=== PATIENT | female | born 1950 | race Caucasian/White ===

== ENCOUNTER 2017-03-14 13:05 | Emergency (ER) | payer MEDICARE ==
[2017-03-14 15:30] VITALS: BP 114/54
--- NOTE | 2017-03-14 15:56 | UC ---
Abdominal Pain Female HPI - HPI Summary HPI Summary: Caitlyn Carrero is a 66 yo female presenting to [facility] with lower abd/pelvic pressure for the past 4 weeks without any current pain. Pt states she has had multiple BM 's per day in the past 4 weeks that begin as hard stools but progress to "soupier" form as the day continues. Pt also states some intermittent lower back pain. She states she saw her PCP for these Sx 3 weeks ago and was Dx with UTI with a Rx for Cipro. She states that the Cipro helped resolve her Sx while she was taking it, but as soon as her Rx finished her Sx returned. She states that her PCP took swabs of vaginal discharge. She states that she has had UTI in the past and feels that this is not like a UTI. She states she has some urinary incontinence with dark cream discharge since her hysterectomy several years ago. She denies any blood in her vaginal discharge. Pt states that she does not eat alot, but always feels very full. She does not have an SOCIAL MEDIA CONTENT SPECIALIST. She denies fever, N/V, blood in her stool. She was recommended to present to [facility] by her PCP. Her MHx includes HTN, COPD, emphysema, Lung CA w/ current radiation therapy, complete hysterectomy, vitamin B12 deficiency, colonosocopy, former smoker. Her PCP is Dr. West. - History of Current Complaint Chief Complaint: UCGU Stated Complaint: LOWER PELVIC PAIN Hx Last Menstrual Period: "years ago." Allergies/Adverse Reactions: Allergies Allergy/AdvReac Type Severity Reaction Status Date / Time Fluticasone [From Advair] Allergy See Comment Verified 07/05/16 11:02 Salmeterol [From Advair] Allergy See Comment Verified 07/05/16 11:02 Home Medications: Home Medications Cimetidine [Cimetidine 200] 400 mg 03/14/17 [History] Estrogens, Conjugated [Premarin] 03/14/17 [History] LevoCETirizine TAB (NF) [Xyzal TAB (NF)] BID 03/14/17 [History] Losartan Potassium [Cozaar] 03/14/17 [History] Magnesium 03/14/17 [History] PMH/Surg Hx/FS Hx/Imm Hx Endocrine History Of: Denies: Diabetes, Thyroid Disease, Hyperthyroidism, Hypothyroidism, Dyslipidemia Cardiovascular History Of: Reports: Hypertension - medication Denies: Cardiac Disorders, Pacemaker/ICD, Myocardial Infarction, Congestive Heart Failure, Atrial Fibrillation, Deep Vein Thrombosis, Bleeding Disorders Respiratory History Of: Reports: COPD - Emphysema Denies: Asthma, Bronchitis, Pneumonia, Pulmonary Embolism GI/ History Of: Denies: Gastroesophageal Reflux, Ulcer, Gastrointestinal Bleed, Gall Bladder Disease, Kidney Stones, Diverticulitis, Renal Disease, Urosepsis Neurological History Of: Denies: TIA, CVA, Dementia, Seizures, Migraine Psychological History Of: Denies: Anxiety, Depression, Bipolar Disorder, Schizophrenia, Post Traumatic Stress Disorder Cancer History Of: Reports: Lung Cancer - Treated last year with chemo; currently radiation therapy Denies: Colorectal Cancer, Breast Cancer, Prostate Cancer, Cervical Cancer Other History Of: Negative For: HIV, Hepatitis B, Hepatitis C, Anticoagulant Therapy - Surgical History Surgical History: Yes Surgery Procedure, Year, and Place: HYSTERECTOMY - Family History Known Family History: Positive: Hypertension, Diabetes Negative: Cardiac Disease, Renal Disease - Social History Alcohol Use: Occasionally Substance Use Type: None Smoking Status (MU): Former Smoker Type: Cigarettes Physical Exam Vital Signs: Initial Vital Signs Temp 99.5 F 03/14/17 15:06 Pulse 89 03/14/17 15:06 Resp 16 03/14/17 15:06 BP 154/68 03/14/17 15:06 Pulse Ox 94 03/14/17 15:06 Discharge - Discharge Plan Condition: Stable Disposition: HOME Referrals: Alexei West MD [Primary Care Provider] -
--- NOTE | 2017-03-14 16:27 | UC ---
merry Pedraza Timothy, scribed for Patti Ramírez MD on 03/14/17 at 1520 . Abdominal Pain Female HPI - HPI Summary HPI Summary: Caitlyn Carrero is a 66 yo female presenting to [facility] with lower abd/pelvic pressure for the past 4 weeks without any current pain. Pt states she has had multiple BM 's per day in the past 4 weeks that begin as hard stools but progress to "soupier" form as the day continues. Pt also states some intermittent lower back pain. She states she saw her PCP for these Sx 3 weeks ago and was Dx with UTI with a Rx for Cipro. She states that the Cipro helped resolve her Sx while she was taking it, but as soon as her Rx finished her Sx returned. She states that her PCP took swabs of vaginal discharge. She states that she has had UTI in the past and feels that this is not like a UTI. She states she has some urinary incontinence with dark cream discharge since her hysterectomy several years ago, and therefore wears pads daily. She denies any blood in her vaginal discharge. Pt states she is not having intercourse with anyone, and her PCP has already tested her for BV and yeast with a vaginal swab. Pt denies hematochezia and melena, has normal brown stool. Pt states that she does not eat alot, but always feels very full. She does not have an OUTSIDE REPAIRER SPECIAL. She denies fever, N/V, blood in her stool. She was recommended to present to [facility] by her PCP. Her MHx includes HTN, COPD, emphysema, Lung CA w/ current radiation therapy , complete hysterectomy, vitamin B12 deficiency, colonosocopy, former smoker. Her PCP is Dr. West. - History of Current Complaint Chief Complaint: UCGU Stated Complaint: LOWER PELVIC PAIN Time Seen by Provider: 03/14/17 15:31 Hx Obtained From: Patient Hx Last Menstrual Period: "years ago." s/p hyst ?: No Onset/Duration: Gradual Onset, Lasting Weeks, Still Present Timing: Constant Severity Initially: Moderate Severity Currently: Moderate Pain Intensity: 0 Pain Scale Used: 0-10 Numeric Location: Suprapubic - pressure Radiates: No Character: Other - pressure Aggravating Factor(s): Nothing Alleviating Factor(s): Nothing Associated Signs and Symptoms: Positive: Back Pain, Urinary Symptoms - Hx UTI, Vaginal Discharge - dark cream discharge since hysterectomy, nothing new or different, no blood, Diarrhea - "soupy". Negative: Fever, Vaginal Bleeding Allergies/Adverse Reactions: Allergies Allergy/AdvReac Type Severity Reaction Status Date / Time Fluticasone [From Advair] Allergy See Comment Verified 07/05/16 11:02 Salmeterol [From Advair] Allergy See Comment Verified 07/05/16 11:02 Home Medications: Home Medications Cimetidine [Cimetidine 200] 400 mg 03/14/17 [History] Estrogens, Conjugated [Premarin] 03/14/17 [History] LevoCETirizine TAB (NF) [Xyzal TAB (NF)] BID 03/14/17 [History] Losartan Potassium [Cozaar] 03/14/17 [History] Magnesium 03/14/17 [History] PMH/Surg Hx/FS Hx/Imm Hx Previously Healthy: No Endocrine History Of: Denies: Diabetes, Thyroid Disease, Hyperthyroidism, Hypothyroidism, Dyslipidemia Cardiovascular History Of: Reports: Hypertension - medication Denies: Cardiac Disorders, Pacemaker/ICD, Myocardial Infarction, Congestive Heart Failure, Atrial Fibrillation, Deep Vein Thrombosis, Bleeding Disorders Respiratory History Of: Reports: COPD - Emphysema Denies: Asthma, Bronchitis, Pneumonia, Pulmonary Embolism GI/ History Of: Denies: Gastroesophageal Reflux, Ulcer, Gastrointestinal Bleed, Gall Bladder Disease, Kidney Stones, Diverticulitis, Renal Disease, Urosepsis Neurological History Of: Denies: TIA, CVA, Dementia, Seizures, Migraine Psychological History Of: Denies: Anxiety, Depression, Bipolar Disorder, Schizophrenia, Post Traumatic Stress Disorder Cancer History Of: Reports: Lung Cancer - s/p chemo and radiation Denies: Colorectal Cancer, Breast Cancer, Prostate Cancer, Cervical Cancer Other History Of: Negative For: HIV, Hepatitis B, Hepatitis C, Anticoagulant Therapy - Surgical History Surgical History: Yes Surgery Procedure, Year, and Place: HYSTERECTOMY - Family History Known Family History: Positive: Hypertension, Diabetes Negative: Cardiac Disease, Renal Disease - Social History Alcohol Use: Occasionally Substance Use Type: None Smoking Status (MU): Former Smoker Type: Cigarettes Review of Systems Constitutional: Negative Skin: Negative Eyes: Negative ENT: Negative Respiratory: Negative Cardiovascular: Other - "feels full"with small amounts of food. Gastrointestinal: Abdominal Pain, Diarrhea - "soupy", but not persistent, goes away by the end of the day, Other - pelvic pain Genitourinary: Other - some urinary incontinence that is not new, cream colored vaginal discharge, Hx UTI Motor: Negative Neurovascular: Negative Musculoskeletal: Other: - intermittent low back pain Neurological: Negative Psychological: Negative All Other Systems Reviewed And Are Negative: Yes Physical Exam Triage Information Reviewed: Yes Appearance: No Pain Distress, Well-Nourished, Ill-Appearing Vital Signs: Initial Vital Signs Temp 99.5 F 03/14/17 15:06 Pulse 89 03/14/17 15:06 Resp 16 03/14/17 15:06 BP 154/68 03/14/17 15:06 Pulse Ox 94 03/14/17 15:06 Vital Signs Reviewed: Yes Eyes: Positive: Conjunctiva Clear ENT: Positive: Normal ENT inspection, Hearing grossly normal. Negative: Muffled /hoarse voice Neck: Positive: Supple, Nontender Respiratory: Positive: Lungs clear, Normal breath sounds, No respiratory distress Cardiovascular: Positive: RRR, No Murmur, Pulses Normal, Brisk Capillary Refill Abdomen Description: Positive: Nontender, No Organomegaly, Soft, Other: - no vaginal discharge or blood on Pt's pad, visualized by me; pt declines rectal exam-states no blood and she is due for colonoscopy. Negative: Bruit, CVA Tenderness (R), CVA Tenderness (L), Distended, Guarding, Hernia @, Hepatomegaly , McBurney's Point Tenderness, Peritoneal Signs, Pulsatile Mass, Splenomegaly Bowel Sounds: Positive: Present Musculoskeletal: Positive: Strength Intact, ROM Intact Neurological: Positive: Alert, Muscle Tone Normal Psychological Exam: Normal Psychological: Positive: Age Appropriate Behavior Skin Exam: Normal Skin: Negative: rashes Abd Pain Female Course/Dx - Course Course Of Treatment: Caitlyn Carrero is a 66 yo female presenting to [facility] with low abd/pelvic pressure for the past 4 weeks with BM's that get progressively softer as the day progresses, with no current pain. She also has had intermittent back pain. She has had cream colored vaginal discharge since her hysterectomy several years ago. Her UA was WNL. Pt medication list reviewed this visit. Of note is her BP of 154/68 on BP medication. After clinical examination and review of her lab work, she will be discharged home with hypertension in poor control, abd pain, and pelvic pain with appropriate instructions. She is advised no sign of UTI, or surgical abdomen, and no masses palpated. She will follow up with Dr. West and Dr. Joseph (oncology) as scheduled. UA. color: yellow. clarity: clear. pH: 6.0. Specif Weldon: 1.020. Protein: negative. glucose: negative. ketones: negative. blood: negative. nitrite: negative. bilirubin: negative. urobilinogen: 0.2. leukocyte esteras: negative - Differential Dx/Diagnosis Differential Diagnosis: Bowel Obstruction, Constipation, Diverticulitis, Urinary Tract Infection, Other - pelvic pain, abd pain Provider Diagnoses: Hypertension in poor control, abd pain, pelvic pain Discharge - Discharge Plan Condition: Stable Disposition: HOME Patient Education Materials: Pelvic Pain in Women (ED), Acute Abdominal Pain ( ED), Chronic Hypertension (ED) Referrals: Alexei West MD [Primary Care Provider] - As Soon As Possible Additional Instructions: Dr. Ramírez recommends that you may benefit for yogurt with live cultures or probiotics. Please follow up with your primary care physician regarding your visit to urgent care today after you return from your vacation. Return to urgent care or the nearest emergency department with any new or worsening symptoms. The documentation as recorded by the merry buenrostro Timothy accurately reflects the service I personally performed and the decisions made by , Patti Ramírez MD.
== END 2017-03-14 16:44 | disposition home or self-care (01) ==
LOC: UCEAST 13:05
DX: I10 Essential (primary) hypertension (principal); R10.9 Unspecified abdominal pain; R10.2 Pelvic and perineal pain; Z87.891 Personal history of nicotine dependence; J43.9 Emphysema, unspecified; C34.90 Malignant neoplasm of unspecified part of unspecified bronchus or lung
CPT/HCPCS: 81003; 99211; G0463

== ENCOUNTER 2018-12-28 09:38 | Inpatient (IN) | payer MEDICARE ==
[2018-12-28 10:15] LABS: Influenza A Molecular NEGATIVE (Negative); Influenza B Molecular NEGATIVE (Negative)
--- NOTE | 2018-12-28 12:29 | ED ---
Respiratory - HPI Summary HPI Summary: Pt is a 68 y/o F presenting to the ED with a chief complaint of increasing SOB, need for her O2. She is presenting with her daughter. The pt has an extensive respiratory history including non small cell lung cancer s/p chemo and radiation , COPD and the pt is currently on 2L of oxygen that she normally only uses at night, recently established with Dr. Augustin. She just got back from a long drive from [place] on 12/26/18, after a [place] cruise, and began feeling shortness of breath that same day, which worsened to the point where she is now wearing her O2 continuously around the clock. She felt "too sick" yesterday, and too exhausted to go out, so she missed her appointment with Dr. Augustin yesterday. She reports chills, shortness of breath, and productive cough. The pt denies fever or chest pain. - History of Current Complaint Chief Complaint: EDUpperRespComplaint Stated Complaint: FLU SYMPTOMS PER PT Time Seen by Provider: 12/28/18 10:12 Hx Obtained From: Patient, Family/Appliance Sales Associate - daughter, Other: - Dr. Joseph Onset/Duration: Sudden Onset, Lasting Days, Still Present Timing: Constant Initial Severity: Severe Current Severity: Severe Pain Intensity: 8 Character: Cough (Productive), Dyspnea at Rest Sputum Amount: Moderate Sputum Color: Green Aggravating Factor(s): Movement Alleviating Factor(s): Oxygen Associated Signs and Symptoms: SOB, Chills - Allergy/Home Medications Allergies/Adverse Reactions: Allergies Allergy/AdvReac Type Severity Reaction Status Date / Time fluticasone Allergy See Comment Verified 12/28/18 09:48 [From Advair Diskus] salmeterol Allergy See Comment Verified 12/28/18 09:48 [From Advair Diskus] Home Medications: Home Medications Losartan TAB* [Cozaar TAB*] 50 mg PO QAM 12/28/18 [History Confirmed 12/28/18] Magnesium Oxide 500 mg PO DAILY 12/28/18 [History Confirmed 12/28/18] Mv-Mn/Folic Acid/Calcium/Vit K [Women's 50 Plus Multivit Tab] 1 tab PO DAILY 05/11 [History Confirmed 12/28/18] Ranitidine TAB (NF) [Zantac TAB (NF)] 150 mg PO BID 12/28/18 [History Confirmed 12/28/18] Umeclidin/Vilant 62.5 MDI(NF) [ANORO 62.5/25 Ellipta DEVICE (NF)] 1 puff INH DAILY PRN 12/28/18 [History Confirmed 12/28/18] PMH/Surg Hx/FS Hx/Imm Hx Previously Healthy: No Endocrine/Hematology History: Denies: Hx Anticoagulant Therapy, Hx Blood Disorders, Hx Diabetes, Hx Thyroid Disease, Hx Anemia Cardiovascular History: Reports: Hx Hypertension - medication Denies: Hx Congestive Heart Failure, Hx Deep Vein Thrombosis, Hx Myocardial Infarction, Hx Pacemaker/ICD Respiratory History: Reports: Hx Chronic Obstructive Pulmonary Disease (COPD), Hx Lung Cancer - s/p chemo and radiation, Other Respiratory Problems/Disorders - LUNG CA-IN REMISSION Denies: Hx Asthma, Hx Pneumonia, Hx Pulmonary Embolism GI History: Denies: Hx Gall Bladder Disease, Hx Gastrointestinal Bleed, Hx Ulcer, Hx Urosepsis History: Denies: Hx Dialysis, Hx Kidney Stones, Hx Renal Disease Sensory History: Denies: Hx Hearing Aid Neurological History: Denies: Hx Dementia, Hx Migraine, Hx Seizures, Hx Transient Ischemic Attacks (TIA) Psychiatric History: Denies: Hx Anxiety, Hx Depression, Hx Panic Disorder, Hx Schizophrenia, Hx Bipolar Disorder - Cancer History Cancer Type, Location and Year: Lung Cancer-chemo & radiation. Hx Chemotherapy: Yes - LEFT LUNG CANCER Hx Radiation Therapy: Yes - LEFT LUNG CANCER - Surgical History Surgery Procedure, Year, and Place: HYSTERECTOMY. POWER PORT - Immunization History Date of Tetanus Vaccine: Unk Infectious Disease History: No Infectious Disease History: Denies: History Other Infectious Disease, Traveled Outside the [place] in Last 30 Days - Family History Known Family History: Positive: Hypertension, Diabetes Negative: Cardiac Disease, Renal Disease - Social History Alcohol Use: Occasionally Hx Substance Use: No Substance Use Type: Reports: None Hx Tobacco Use: Yes Smoking Status (MU): Former Smoker Type: Cigarettes Review of Systems Positive: Chills. Negative: Fever Negative: Chest Pain Positive: Shortness Of Breath, Cough Gastrointestinal: Negative Positive: no symptoms reported Musculoskeletal: Negative Skin: Negative Neurological: Negative Psychological: Normal All Other Systems Reviewed And Are Negative: Yes Physical Exam - Summary Physical Exam Summary: Appearance: Ill-appearing, no pain distress, well-nourished Skin: Warm, color reflects adequate perfusion, dry Head: Normal Head/Face inspection, atraumatic Eyes: Conjunctiva clear ENT: Normal inspection Neck: Supple, no nodes, no JVD Respiratory: mild respiratory distress, short of breath at rest, wearing nasal cannula O2 at 2L, congested cough, decreased breath sounds. Cardio: RRR, No murmur, pulses normal, brisk capillary refill Abdomen: Soft, nontender Bowel sounds: Present Musculoskeletal: Strength Intact/ROM intact, no calf tenderness, no edema. Psychological: Normal Neuro: Alert, muscle tone normal, no focal deficit Triage Information Reviewed: Yes Vital Signs On Initial Exam: Initial Vitals Temp Pulse Resp BP Pulse Ox 98.2 F 95 18 140/69 96 12/28/18 09:43 12/28/18 09:43 12/28/18 09:43 12/28/18 09:43 12/28/18 09:43 Vital Signs Reviewed: Yes Diagnostics - Vital Signs Vital Signs Temp Pulse Resp BP Pulse Ox 12/28/18 11:43 100.3 F 102 20 135/55 95 12/28/18 09:43 98.2 F 95 18 140/69 96 - Laboratory Lab Results: Lab Results 12/28/18 Range/Units 10:03 Influenza A (Rapid) Negative (Negative) Influenza B (Rapid) Negative (Negative) Result Diagrams: 12/29/18 04:58 12/29/18 04:58 Lab Statement: Any lab studies that have been ordered have been reviewed, and results considered in the medical decision making process. - Radiology Chest x-ray Radiology Interpretation Completed By: Radiologist Summary of Radiographic Findings: 1. Stigmata of obstructive lung disease. 2. Stable LEFT paramediastinal upper lung zone probable postradiation fibrosis. 3. New mild opacity at the LEFT costophrenic angle concerning for potential pneumonia given the clinical context. Radiographic follow-up suggested for therapy to assess for resolution. ED physician has reviewed this report. - CT CTA Chest/Neck CT Interpretation Completed By: Radiologist Summary of CT Findings: Nodules in the periphery of the left lower lobe appear to be new or increased in size when compared to previous exam of November 09, 2018. I cannot totally exclude metastatic disease. In addition nodule/ infiltrate is noted in the left lower lobe measuring 1.3 cm. This was not identified previously and although may represent metastatic disease. Inflammatory changes surrounding this lesion is not excluded. No evidence of pulmonary embolus is noted. ED physician has reviewed this report. Re-Evaluation - Re-Evaluation First Eval Re-Evaluation Time: 12:30 Change: Worse Comment: increased SOB, neb ordered. ED Resp protocol in place. Second Eval Re-Evaluation Time: 15:00 Change: Unchanged Comment: Given results of CT. Will Rx as pneumonia, however pt advised could be metastatic disease. Third Eval Re-Evaluation Time: 15:40 Change: Worse Comment: increased SOB per RN. Continue Resp protocol. Disposition - Course Course Of Treatment: Pt is a 68 y/o F presenting to the ED with a chief complaint of increasing SOB and need for O2. The pt has an extensive respiratory history including non small cell lung cancer s/p chemo and radiation , and COPD for which the pt is currently on 2L of oxygen that she normally only uses at night, and has now begun to use continuously. She reports chills, shortness of breath, and productive cough. The pt denies fever or chest pain. Pt was on a Manj[place] cruise, then drove home from [place] over 2.5 days, returning 12/26/18 and has been with increased SOB since. She missed an appt with Dr. Augustin yesterday because she was too tired and too SOB to make the appt. In the ED: Her flu swab came back negative. CXR reveals 1. Stigmata of obstructive lung disease. 2. Stable LEFT paramediastinal upper lung zone probable postradiation fibrosis. 3. New mild opacity at the LEFT costophrenic angle concerning for potential pneumonia given the clinical context. Radiographic follow-up suggested for therapy to assess for resolution. CTA of chest/neck shows: Nodules in the periphery of the left lower lobe appear to be new or increased in size when compared to previous exam of November 09, 2018. I cannot totally exclude metastatic disease. In addition nodule/infiltrate is noted in the left lower lobe measuring 1.3 cm. This was not identified previously and although may represent metastatic disease. Inflammatory changes surrounding this lesion is not excluded. No evidence of pulmonary embolus is noted. The pt will be admitted to [facility] under Dr. Todd. Pt and daughter are agreeable with this plan. Pt's medications, allergies, VS and nurses' notes reviewed. - Differential Dx - Cardiopulmonary Differential Diagnoses - Cardiopulmonary: Acute Dyspnea, Aspiration, Bronchitis , CAD, CHF, Exacerbation Of COPD, Lower Resp Infection, Pulmonary Embolism - Diagnoses Provider Diagnoses: COPD exacerbation, Left lower lobe pneumonia, Pulmonary nodules, Hx of cancer of lung, Acute on chronic respiratory failure with hypoxia - Physician Notifications Discussed Care Of Patient With: Christofer Todd Time Discussed With Above Provider: 14:55 Discharge - Sign-Out/Discharge Documenting (check all that apply): Patient Departure - admit - Discharge Plan Condition: Stable Disposition: ADMITTED TO [facility] - Billing Disposition and Condition Condition: STABLE Disposition: Admitted to [facility] - Attestation Statements Document Initiated by Scribe: Yes Documenting Scribe: Navya Knapp Provider For Whom Vasquezibe is Documenting (Include Credential): Dr. Patti Ramírez MD. Scribe Attestation: Navya Pedraza, marced for Dr. Patti Ramírez MD. on 12/30/18 at 0223. Scribe Documentation Reviewed: Yes Provider Attestation: The documentation as recorded by the scribe, Navya Knapp accurately reflects the service I personally performed and the decisions made by me, Dr. Patti Ramírez MD. Status of Scribe Document: Viewed Consult Consult: [id number] - Spoke with Dr. Todd who will be the accepting physician to [facility]. Spoke with Dr. Joseph prior to this who stated cancer is not active at this time, advises hospitalist management of pneumonia and COPD exacerbation. Oncology will consult as needed.
[2018-12-28] MEDS ORDERED: methylPREDNISolone 125 MG* 2 ML VIAL IV ONE (12:34)
[2018-12-28] MEDS ORDERED: Albuterol/Ipratropium NEB.SOL* Albuterol 2.5 MG/Ipratropium 0.5 MG 3 ML INH ONE (12:34)
[2018-12-28] MEDS ORDERED: NS 0.9% 1000 ML** 1,000 ML IV ONE (12:34)
[2018-12-28 13:17] LABS: ABS Basophils 0 10^3/ul (0-0.2); ABS Eosinophils 0.1 10^3/ul (0-0.6); ABS Lymphocytes 0.5 10^3/ul (1.0-4.8); ABS Monocytes 1.2 10^3/ul (0-0.8); ABS Neutrophils 8.6 10^3/ul (1.5-7.7); ABS Nucleated RBC 0 10^3/ul; Eosinophil % 0.7 %; Hematocrit 37 % (35-47); Lymphocyte % 5.1 %; Mean Corpuscular HGB Conc 33 g/dl (31-36); Mean Corpuscular Hemoglobin 28 pg (27-31); Mean Corpuscular Volume 86 fL (80-97); Mean Platelet Volume 7.7 fL (7.4-10.4); Nucleated Red Blood Cells % 0; Platelet Count 278 10^3/ul (150-450); Red Blood Count 4.24 10^6/ul (4.00-5.40); Red Cell Distribution Width 14 % (10.5-15); White Blood Count 10.4 10^3/ul (3.5-10.8)
[2018-12-28 13:31] LABS: Activated Partial Thrombo Time 28.7 seconds (26.0-36.3); INR 0.99 (0.77-1.02)
[2018-12-28 13:39] LABS: Albumin 3.9 g/dL (3.2-5.2); Albumin/Globulin Ratio 1.2 (1-3); BUN/Creatinine Ratio 13.8 (8-20); C Reactive Protein 215.77 mg/L (<8.01); Calcium 9.4 mg/dL (8.6-10.3); EGFR African American 86.6 (>60); EGFR Non-African American 71.5 (>60); Globulin 3.3 g/dL (2-4); Potassium 3.9 mmol/L (3.5-5.0); Total Bilirubin 0.4 mg/dL (0.2-1.0); Total Protein 7.2 g/dL (6.4-8.9)
[2018-12-28 13:41] LABS: Troponin I 0.01 ng/mL (<0.04)
[2018-12-28 13:43] LABS: CKMB ng/mL 2.3 ng/mL (0.6-6.3)
[2018-12-28] MEDS ORDERED: Iohexol 350* (CONTRAST) 500 ML MDV IV ONE (14:08)
[2018-12-28] MEDS ORDERED: ED Azithromycn 500 mg/250 ml 500 MG/250 ML PREMIX.SET IVPB ONE (15:24)
[2018-12-28] MEDS ORDERED: cefTRIAXone(*) 1 GM in NS 0.9% 50 ML* 50 ML IVPB ONE (15:24)
[2018-12-28] MEDS ORDERED: Acetaminophen TAB* 325 MG PO ONE (15:28)
[2018-12-28] MEDS ORDERED: Acetaminophen TAB* 325 MG ONE (15:28)
[2018-12-28] MEDS ORDERED: Azithromycin IV(*) 500 MG in NS 0.9% 250 ML* 250 ML IVPB ONE (17:00)
[2018-12-28] MEDS ORDERED: NS 0.9% 250 ML* 250 ML ONE (17:06)
[2018-12-28] MEDS ORDERED: Ondansetron INJ* 2 MG/ML VIAL IV PRN (18:17)
[2018-12-28] MEDS ORDERED: Acetaminophen TAB* 325 MG PO PRN (18:17)
[2018-12-28] MEDS ORDERED: NFT: Umeclidin/Vilant 62.5 MDI 62.5/25 mcg 14 INH ELLIPTA DEVICE INH PRN (18:19)
[2018-12-28] MEDS ORDERED: Albuterol/Ipratropium NEB.SOL* Albuterol 2.5 MG/Ipratropium 0.5 MG 3 ML INH SCH (19:00)
[2018-12-28] MEDS: DOXYcycline IV* 100 MG in NS 0.9% 250 ML* 250 ML IVPB SCH (20:33)
[2018-12-28] MEDS: guaiFENesin ER TAB 600 MG PO SCH (21:35)
[2018-12-28] MEDS: Famotidine TAB* 20 MG PO SCH (21:35)
[2018-12-28] MEDS: Benzonatate CAP* 100 MG PO PRN (21:35)
[2018-12-28] MEDS: Heparin VIAL(*) 5000 UNITS/ML VIAL (FIVE THOUSAND) SUBCUT SCH (21:35)
[2018-12-28] MEDS: hydrOXYzine HCL TAB* 50 MG PO SCH (21:35)
[2018-12-28] MEDS: Cetirizine* 10 MG TAB PO SCH (21:40)
--- NOTE | 2018-12-28 23:00 | HP ---
CC: Dr. Alexei West; Dr. Tammy Barcenas; Dr. Daysi Joseph* ADMISSION HISTORY AND PHYSICAL: DATE OF ADMISSION: 12/28/18 PRIMARY CARE PROVIDER: Alexei West MD MY ATTENDING WHILE IN THE HOSPITAL: Tammy Barcenas MD* (dictated by SANTA Nieto). OUTPATIENT ONCOLOGIST: Dr. Daysi Joseph. CHIEF COMPLAINT: Shortness of breath x4 days. HISTORY OF PRESENT ILLNESS: Ms. Carrero is a 68-year-old female with past medical history significant for non-small cell lung cancer, initially diagnosed in 2017, recurring in 2017 as well as severe COPD and hypertension, who presents to the emergency department with worsening shortness of breath over the past 4 days. The patient has been previously having relatively unlimited exercise tolerance and needing only oxygen at night. However, over the past 4 days, the patient has been having significantly worsening shortness of breath with the inability to take more than a few steps without becoming severely short of breath. The patient denies any exposure to anyone with a flu or other respiratory illness; however, the patient has been having fevers, chills, significant cough with production of green-brown sputum. The patient has never had a COPD exacerbation in the past. The patient has been wheezing, but has not been taking her inhaler due to recently starting Anoro Ellipta and being told not to take her Combivent in combination with this. The patient denies abdominal pain, diarrhea, chest pain, nausea, vomiting. The patient has denied dysuria or other changes in her urine. The patient has been having worsening swelling in her legs for several months as well as worsening orthopnea. The patient had a echocardiogram in 2018, which was unremarkable. The patient has been needing her oxygen up to 3 L at all times to maintain a saturation above 90 %. Due to concern for community-acquired pneumonia versus COPD exacerbation, we were asked to evaluate the patient for admission to the hospital. PAST MEDICAL HISTORY: Non-small cell lung cancer in 2015 with recurrence in 2017, COPD, hypertension. PAST SURGICAL HISTORY: Hysterectomy. MEDICATIONS: 1. Magnesium oxide 500 mg p.o. daily. 2. Losartan 50 mg p.o. daily. 3. Combivent Respimat 1 inhalation four times daily as needed for shortness of breath. 4. Ventolin 1 puff inhalation q.4 hours as needed for shortness of breath. 5. Premarin 0.625 mg daily. 6. Flovent 220 two puffs inhalation b.i.d. 7. Vitamin B12 1000 units p.o. daily. 8. Multivitamin 1 tab p.o. daily. 9. Xyzal 5 mg p.o. daily. 10. Ranitidine 150 mg p.o. daily. 11. Hydroxyzine 25 mg p.o. daily. 12. Anoro 1 puff inhalation daily. ALLERGIES: FLUTICASONE, SALMETEROL. FAMILY HISTORY: The patient's mother of breast cancer. The patient's father of esophageal cancer. The patient had a sister who of brain cancer and a sister who is alive and healthy. SOCIAL HISTORY: The patient smoked 1-2 packs a day for 30 years, but quit several years ago. The patient drinks alcohol occasionally. Denies illicit drug use. 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 The patient is and has 2 children. The patient's surrogate decision maker will be her daughter, Daysi Stallings. REVIEW OF SYSTEMS: A 14-point review of systems was reviewed and is negative except as above in the HPI. PHYSICAL EXAMINATION GENERAL: The patient is a 68-year-old female who appears stated age, sitting comfortably in bed, in no acute distress. VITAL SIGNS: Temperature 102, pulse rate 80, respiratory rate 20, oxygen saturation 94% on 3 L, blood pressure 133/59. HEENT: Head: Normocephalic, atraumatic. Sclerae anicteric. No conjunctival injection. Nasal mucosa moist. Oral mucosa moist. No pharyngeal erythema, discharge, or exudate. NECK: Supple, nontender. No lymphadenopathy. No carotid bruits auscultated. No JVD. RESPIRATORY: Slight expiratory wheezing throughout, diminished throughout. Barrel chested. No adventitious lung sounds. CARDIAC: Regular rate and rhythm. No clicks, murmurs, gallops, or rubs. Pulses are 2+ in the bilateral dorsalis pedis, posterior tibialis, and radial areas. ABDOMEN: Soft, nontender, nondistended. Bowel sounds present and normoactive in all 4 quadrants. No hepatosplenomegaly. No abdominal bruits auscultated. No hepatojugular reflux. GENITOURINARY: No suprapubic or CVA tenderness. NEURO: Cranial nerves II through XII intact. No focal deficits. Alert and oriented x3. PSYCHIATRIC: Pleasant, cooperative. SKIN: Clean, dry, and intact. No rash. DIAGNOSTIC STUDIES/LAB DATA: White blood cell count 10.4, hemoglobin 12.0, platelet count 278. INR 0.99, aPTT 28.7, D-dimer at 370. ABG, 7.41, pO2 73, pCO2 42, HCO3 26.2. Oxygen saturation 97.4. Sodium 130, potassium 3.9, chloride 93, carbon dioxide 30, anion gap 7, BUN 11, creatinine 0.8, glucose 108 , lactic acid 1.1, calcium 9.4. Bilirubin 0.4, AST 12, ALT 9, alkaline phosphatase 50. Creatinine kinase 29, CK-MB 23, troponin I of 0.01, CRP 215.77, BNP 40. Protein 7.2, albumin 3.9, globulin 3.3. Influenza A and B negative. Studies: Chest x-ray read as some mild obstructive lung disease, stable left paramediastinal upper lung zone postradiation fibrosis. New mild opacity of the left costophrenic angle, concerning for possible pneumonia. Radiographic followup suggested to assess for resolution. Electrocardiogram shows sinus tachycardia, rate of 109, QTc of 438, right axis deviation, no ST segment abnormalities. No hypertrophy or enlargement. No other significant changes. Chest, thorax CTA read as nodules in the periphery of the left lower lung, appeared to be new or increased in size when compared to previous exam on , cannot totally exclude metastatic disease. In addition, nodular infiltrate noted in the left lower lobe measuring 1.3 cm. This was not identified previously and although may represent metastatic disease, inflammatory changes around the lesion is not excluded. No evidence of pulmonary embolus. ASSESSMENT AND PLAN/IMPRESSION: Ms. Carrero is a 68-year-old female with past medical history significant for non-small cell lung cancer and chronic obstructive pulmonary disease, who presents with 4 days of worsening shortness of breath, wheezing, cough and sputum production. The patient was admitted to the hospital for chronic obstructive pulmonary disease exacerbation versus pneumonia. 1. Acute hypoxic respiratory failure, chronic obstructive pulmonary disease exacerbation, possible pneumonia. The patient has respiratory failure with unclear cause. The patient is wheezing and likely has a COPD exacerbation. The patient will be continued on her home inhalers, given steroids and DuoNeb q.4 hours initially while awake. The patient was needing supplemental oxygen, which we weaned as tolerated. The patient also has a possibility of pneumonia versus worsening of pulmonary nodularity. The patient is having cough, fevers, tachycardia, and shortness of breath all consistent with community-acquired pneumonia. The patient will be treated with ceftriaxone and doxycycline for community-acquired pneumonia. The patient likely should have a repeat CT as outpatient after the patient has been adequately treated for possible pneumonia. The patient has a normal BNP and had a normal echocardiogram previously; however, the patient has been having worsening orthopnea, dyspnea on exertion, and lower extremity swelling. I will reassess with an echocardiogram due to signs and possible worsening CHF. 2. Chronic obstructive pulmonary disease. Treatment as above. Continue home inhalers and supplemental oxygen as needed. 3. Hypertension. Continue the patient on Losartan. 4. DVT prophylaxis: The patient will have heparin subcu. The patient has been ruled out for pulmonary embolism with CTA of the chest. 5. FEN: The patient had 1 L of fluid while in the emergency department. The patient is currently normotensive, nontachycardic, and will not receive further fluids. The patient will have a heart-healthy diet without caffeine. 6. Disposition: The patient is admitted to inpatient with estimated length of stay greater than 2 midnights. TIME SPENT: Approximately 60 minutes was spent on the admission of this patient , 30 of which was spent [id number] with the patient obtaining history and physical and discussing treatment plan. This plan was discussed with my attending Dr. Tammy Barcenas, and she is in agreement. SANTA NIETO [id number]/[facility] #: [id number] JACQUIE
[2018-12-29] MEDS: Albuterol/Ipratropium NEB.SOL* Albuterol 2.5 MG/Ipratropium 0.5 MG 3 ML INH SCH ×4 (01:58→22:58)
[2018-12-29 05:09] LABS: ABS Basophils 0 10^3/ul (0-0.2); ABS Eosinophils 0 10^3/ul (0-0.6); ABS Lymphocytes 0.4 10^3/ul (1.0-4.8); ABS Monocytes 0.2 10^3/ul (0-0.8); ABS Neutrophils 8.3 10^3/ul (1.5-7.7); ABS Nucleated RBC 0 10^3/ul; Eosinophil % 0 %; Hematocrit 33 % (35-47); Hemoglobin 10.6 g/dl (12.0-16.0); Lymphocyte % 4.7 %; Mean Corpuscular HGB Conc 33 g/dl (31-36); Mean Corpuscular Hemoglobin 28 pg (27-31); Mean Corpuscular Volume 86 fL (80-97); Mean Platelet Volume 7.6 fL (7.4-10.4); Nucleated Red Blood Cells % 0; Platelet Count 239 10^3/ul (150-450); Red Blood Count 3.78 10^6/ul (4.00-5.40); Red Cell Distribution Width 14 % (10.5-15)
[2018-12-29] MEDS: Heparin VIAL(*) 5000 UNITS/ML VIAL (FIVE THOUSAND) SUBCUT SCH ×3 (05:15→21:01)
[2018-12-29 05:19] LABS: BUN/Creatinine Ratio 17.8 (8-20); Calcium 8.5 mg/dL (8.6-10.3); EGFR African American 96.2 (>60); EGFR Non-African American 79.5 (>60); Magnesium 1.9 mg/dL (1.9-2.7); Potassium 4.1 mmol/L (3.5-5.0)
[2018-12-29] MEDS: Conjugated Estrogens TAB* 0.625 MG TAB PO SCH (08:34)
[2018-12-29] MEDS: Famotidine TAB* 20 MG PO SCH ×2 (08:35→21:01)
[2018-12-29] MEDS: Cetirizine* 10 MG TAB PO SCH ×2 (08:35→21:01)
[2018-12-29] MEDS: Cyanocobalamin TAB* 500 MCG PO SCH (08:35)
[2018-12-29] MEDS: Losartan TAB* 25 MG PO SCH (08:35)
[2018-12-29] MEDS: guaiFENesin ER TAB 600 MG PO SCH ×2 (08:35→21:01)
[2018-12-29] MEDS: Magnesium Oxide TAB* 400 MG PO SCH (08:35)
[2018-12-29] MEDS: predniSONE TAB* 20 MG PO SCH (08:35)
[2018-12-29] MEDS: DOXYcycline IV* 100 MG in NS 0.9% 250 ML* 250 ML IVPB SCH ×2 (08:36→20:27)
[2018-12-29 08:48] LABS: Urine Appearance Clear; Urine Bilirubin Negative (Negative); Urine Blood Negative (Negative); Urine Color Yellow; Urine Glucose Negative (Negative); Urine Ketones Negative (Negative); Urine Nitrite Negative (Negative); Urine Protein Negative (Negative); Urine Specific Gravity 1.016 (1.010-1.030); Urine Urobilinogen Negative (Negative)
[2018-12-29] MEDS ORDERED: Albuterol/Ipratropium NEB.SOL* Albuterol 2.5 MG/Ipratropium 0.5 MG 3 ML INH PRN (17:24)
[2018-12-29] MEDS: cefTRIAXone(*) 1 GM in NS 0.9% 50 ML* 50 ML IVPB SCH (18:29)
--- NOTE | 2018-12-29 20:25 | PN ---
Subjective Date of Service: 12/29/18 Interval History: Patient seen and examined. No acute overnight events. Still complains of cough, denies acute SOB. No chest pain, no current fevers or chills. Objective Active Medications: Acetaminophen (Tylenol Tab*) 650 mg PO Q6H PRN PRN Reason: FEVER/PAIN Albuterol (Ventolin 2.5 Mg/3 Ml Neb.Michelle*) 2.5 mg INH Q2H PRN PRN Reason: SOB/WHEEZING Albuterol/Ipratropium (Duoneb (Albuterol 2.5 Mg/Ipratropium 0.5 Mg)) 1 neb INH [id number] AWAKE [facility] Benzonatate (Tessalon Cap*) 100 mg PO BID PRN PRN Reason: COUGH Last Admin: 12/28/18 21:35 Dose: 100 mg Cetirizine HCl (Zyrtec*) 10 mg PO BID [facility] Last Admin: 12/29/18 08:35 Dose: 10 mg Cyanocobalamin (Vitamin B12 Tab*) 1,000 mcg PO DAILY [facility] Last Admin: 12/29/18 08:35 Dose: 1,000 mcg Estrogens Conjugated (Premarin Tab*) 0.625 mg PO DAILY [facility] Last Admin: 12/29/18 08:34 Dose: 0.625 mg Famotidine (Pepcid Tab*) 20 mg PO BID [facility]; Protocol Last Admin: 12/29/18 08:35 Dose: 20 mg Guaifenesin (Mucinex*) 1,200 mg PO BID [facility] Last Admin: 12/29/18 08:35 Dose: 1,200 mg Heparin Sodium (Porcine) (Heparin Vial(*)) 5,000 units SUBCUT Q8HR [facility] Last Admin: 12/29/18 14:27 Dose: 5,000 units Hydroxyzine HCl (Atarax Tab*) 50 mg PO BEDTIME [facility] Last Admin: 12/28/18 21:35 Dose: 50 mg Doxycycline Hyclate 100 mg/ (Sodium Chloride) 250 mls @ 250 mls/hr IVPB Q12H PERICO Last Admin: 12/29/18 08:36 Dose: 250 mls/hr Ceftriaxone Sodium 1 gm/ (Sodium Chloride) 50 mls @ 200 mls/hr IVPB Q24H [facility] Last Admin: 12/29/18 18:29 Dose: 200 mls/hr Losartan Potassium (Cozaar Tab*) 50 mg PO QAM [facility] Last Admin: 12/29/18 08:35 Dose: 50 mg Magnesium Oxide (Magox 400 Tab*) 400 mg PO DAILY [facility] Last Admin: 12/29/18 08:35 Dose: 400 mg Ondansetron HCl (Zofran Inj*) 4 mg IV Q6H PRN PRN Reason: NAUSEA Prednisone (Deltasone Tab*) 60 mg PO DAILY [facility] Last Admin: 12/29/18 08:35 Dose: 60 mg Umeclidinium/Vilanterol (Anoro 62.5/25 Ellipta Device (Nf)) 1 inh INH DAILY PRN PRN Reason: SHORTNESS OF BREATH Vital Signs - 8 hr 12/29/18 12/29/18 13:00 15:37 Temperature 97.6 F Pulse Rate 85 86 Respiratory 14 20 Rate Blood Pressure 138/54 (mmHg) O2 Sat by Pulse 95 94 Oximetry Oxygen Devices in Use Now: Nasal Cannula Appearance: alert, NAD Eyes: No Scleral Icterus, PERRLA Ears/Nose/Mouth/Throat: NL Teeth, Lips, Gums, Mucous Membranes Moist Neck: NL Appearance and Movements; NL JVP, Trachea Midline Respiratory: Symmetrical Chest Expansion and Respiratory Effort, - - course breath sounds with bilateral wheeze Cardiovascular: NL Sounds; No Murmurs; No JVD, RRR, No Edema Abdominal: NL Sounds; No Tenderness; No Distention Lymphatic: No Cervical Adenopathy Extremities: No Edema, No Clubbing, Cyanosis Skin: No Rash or Ulcers Neurological: Alert and Oriented x 3, NL Sensation, NL Gait Nutrition: Taking PO's Result Diagrams: 12/29/18 04:58 12/29/18 04:58 Additional Lab and Data: Lab Results 12/28/18 Range/Units 10:03 Influenza A (Rapid) Negative (Negative) Influenza B (Rapid) Negative (Negative) Microbiology and Other Data: Microbiology 12/29/18 11:30 Gram Stain - Final Sputum Expectorated 12/28/18 14:00 Aerobic Blood Culture - Preliminary Blood Venous No Growth Day 1 Anaerobic Blood Culture - Preliminary No Growth Day 1 12/28/18 12:55 Aerobic Blood Culture - Preliminary Blood Venous No Growth Day 1 Anaerobic Blood Culture - Preliminary No Growth Day 1 12/28/18 09:46 Influenza Types A,B Antigen - Final Nasal Specimen received for Influenza A/B Molecular testing Diagnostic Imaging: Patient Name: ELAINA STAUFFER Medical Record#: [id number] Ordering Physician: [id number] 1950 Age: 68 Sex: F Location: EMERGENCY DEPARTMENT Exam Date: 12/28/18 1240 ADM Status: REG ER Order Information: CTA CHEST Accession Number: [id number] CPT: 76853 Indication: Increasing shortness of breath with history of lung cancer. Contrast: Administered 66.3 ml of OMNIPAQUE 350 mg/ml CTA of the chest performed after IV contrast administration. Coronal and sagittal reconstructed images were obtained. The pulmonary arterial tree is well opacified. There are no filling defects present to suggest pulmonary embolus. The aorta demonstrates no evidence of aortic dissection although aortic atherosclerosis is noted. No aneurysmal dilatation is noted. There is some fibrosis adjacent to the mediastinum in the left upper lobe medially. This is in the region of prior mass and this likely represents post radiation change and is unchanged from 1919. Emphysematous changes of the lung picahrdo are noted. Nodular density is noted in the left lower lobe posteriorly. This was not present previously and measures approximately 5 mm. Pleural-based nodule is noted in the left lower lobe measuring 5 mm. These appear to be progressive since November 09, 2018. Additional nodular density in the left base measures 0.4 cm. In the left lung base in the left costophrenic angle there is rounded density with adjacent infiltrate measuring up to 1.3 cm. Pleural thickening is noted in the right minor fissure. IMPRESSION: Nodules in the periphery of the left lower lobe appear to be new or increased in size when compared to previous exam of November 09, 2018. I cannot totally exclude metastatic disease. In addition nodule/infiltrate is noted in the left lower lobe measuring 1.3 cm. This was not identified previously and although may represent metastatic disease. Inflammatory changes surrounding this lesion is not excluded. No evidence of pulmonary embolus is noted. 1 of 2 Assess/Plan/Problems-Billing Assessment: This is a 68 year old female with hx of COPD and lung CA that presents with - Patient Problems (1) Acute on chronic respiratory failure with hypoxia Code(s): J96.21 - ACUTE AND CHRONIC RESPIRATORY FAILURE WITH HYPOXIA SNOMED Code(s): 50996296 Comment: - History of COPD, nowe with increased SOB x4 days and new oxygen requirement - CT as above - Atbx, O2 and pulmonary toilet - Concern for changes on CT for advancing disease versus infection - Recent PFTs show sever obstructive lung disease (2) CAP (community acquired pneumonia) Current Visit: Yes Status: Acute Code(s): J18.9 - PNEUMONIA, UNSPECIFIED ORGANISM SNOMED Code(s): 247846756 Comment: - Cough, SOB, fevers and tahcycardia consistent with CAP - Nebs, flutter valve, home inhalers, ceftriaxone and doxy, mucinex and tessalon, prednisone daily - Wean O2 as tolerated (3) Lung cancer Code(s): C34.90 - MALIGNANT NEOPLASM OF UNSP PART OF UNSP BRONCHUS OR LUNG SNOMED Code(s): 041113820 Comment: - Hx of non small cell lung carcinoma - Will consult oncology tomorrow to evaluate potential new findings on CT (4) Full code status Current Visit: Yes Code(s): Z78.9 - OTHER SPECIFIED HEALTH STATUS SNOMED Code(s): 258998942 (5) DVT prophylaxis Code(s): [id number] - SNOMED Code(s): 619062189 Comment: - HSQ Status and Disposition: Inpatient
[2018-12-29] MEDS: Benzonatate CAP* 100 MG PO PRN (21:01)
[2018-12-29] MEDS: hydrOXYzine HCL TAB* 50 MG PO SCH (21:01)
[2018-12-30] MEDS: Albuterol/Ipratropium NEB.SOL* Albuterol 2.5 MG/Ipratropium 0.5 MG 3 ML INH SCH ×5 (01:33→23:19)
[2018-12-30] MEDS: Heparin VIAL(*) 5000 UNITS/ML VIAL (FIVE THOUSAND) SUBCUT SCH ×3 (05:35→20:26)
[2018-12-30] MEDS: guaiFENesin ER TAB 600 MG PO SCH ×2 (08:53→20:25)
[2018-12-30] MEDS: predniSONE TAB* 20 MG PO SCH (08:53)
[2018-12-30] MEDS: Conjugated Estrogens TAB* 0.625 MG TAB PO SCH (08:53)
[2018-12-30] MEDS: Magnesium Oxide TAB* 400 MG PO SCH (08:53)
[2018-12-30] MEDS: Cetirizine* 10 MG TAB PO SCH ×2 (08:53→20:24)
[2018-12-30] MEDS: Famotidine TAB* 20 MG PO SCH ×2 (08:53→20:25)
[2018-12-30] MEDS: Cyanocobalamin TAB* 500 MCG PO SCH (08:53)
[2018-12-30] MEDS: Losartan TAB* 25 MG PO SCH (08:53)
[2018-12-30] MEDS: DOXYcycline IV* 100 MG in NS 0.9% 250 ML* 250 ML IVPB SCH ×2 (08:56→19:39)
[2018-12-30] MEDS: Albuterol 2.5 MG/3 ML NEB.SOL* (0.083%) INH PRN (11:50)
--- NOTE | 2018-12-30 12:51 | PN ---
Subjective Date of Service: 12/30/18 Interval History: Patient seen and examined. Still with loose cough and wheeze. States she is not feeling any better. Denies fever, no chills. No acute SOB. Remains on O2 with adequate saturations. Objective Active Medications: Acetaminophen (Tylenol Tab*) 650 mg PO Q6H PRN PRN Reason: FEVER/PAIN Albuterol (Ventolin 2.5 Mg/3 Ml Neb.Michelle*) 2.5 mg INH Q2H PRN PRN Reason: SOB/WHEEZING Last Admin: 12/30/18 11:50 Dose: 2.5 mg Albuterol/Ipratropium (Duoneb (Albuterol 2.5 Mg/Ipratropium 0.5 Mg)) 1 neb INH Q4H [facility] Benzonatate (Tessalon Cap*) 100 mg PO BID PRN PRN Reason: COUGH Last Admin: 12/29/18 21:01 Dose: 100 mg Cetirizine HCl (Zyrtec*) 10 mg PO BID [facility] Last Admin: 12/30/18 08:53 Dose: 10 mg Cyanocobalamin (Vitamin B12 Tab*) 1,000 mcg PO DAILY [facility] Last Admin: 12/30/18 08:53 Dose: 1,000 mcg Estrogens Conjugated (Premarin Tab*) 0.625 mg PO DAILY [facility] Last Admin: 12/30/18 08:53 Dose: 0.625 mg Famotidine (Pepcid Tab*) 20 mg PO BID [facility]; Protocol Last Admin: 12/30/18 08:53 Dose: 20 mg Guaifenesin (Mucinex*) 1,200 mg PO BID [facility] Last Admin: 12/30/18 08:53 Dose: 1,200 mg Heparin Sodium (Porcine) (Heparin Vial(*)) 5,000 units SUBCUT Q8HR [facility] Last Admin: 12/30/18 05:35 Dose: 5,000 units Heparin Sodium (Porcine) (Heparin Flush Port (Ivad)) 5 ml FLUSH DAILY [facility]; Protocol Hydroxyzine HCl (Atarax Tab*) 50 mg PO BEDTIME [facility] Last Admin: 12/29/18 21:01 Dose: 50 mg Doxycycline Hyclate 100 mg/ (Sodium Chloride) 250 mls @ 250 mls/hr IVPB Q12H [facility] Last Admin: 12/30/18 08:56 Dose: 250 mls/hr Ceftriaxone Sodium 1 gm/ (Sodium Chloride) 50 mls @ 200 mls/hr IVPB Q24H [facility] Last Admin: 12/29/18 18:29 Dose: 200 mls/hr Losartan Potassium (Cozaar Tab*) 50 mg PO QAM [facility] Last Admin: 12/30/18 08:53 Dose: 50 mg Magnesium Oxide (Magox 400 Tab*) 400 mg PO DAILY [facility] Last Admin: 12/30/18 08:53 Dose: 400 mg Ondansetron HCl (Zofran Inj*) 4 mg IV Q6H PRN PRN Reason: NAUSEA Prednisone (Deltasone Tab*) 60 mg PO DAILY [facility] Last Admin: 12/30/18 08:53 Dose: 60 mg Umeclidinium/Vilanterol (Anoro 62.5/25 Ellipta Device (Nf)) 1 inh INH DAILY PRN PRN Reason: SHORTNESS OF BREATH Vital Signs - 8 hr 12/30/18 12/30/18 12/30/18 07:54 08:10 12:06 Temperature 97.7 F 97.8 F Pulse Rate 85 75 87 Respiratory 16 20 20 Rate Blood Pressure 136/54 146/61 (mmHg) O2 Sat by Pulse 96 96 98 Oximetry 12/30/18 12:12 Temperature Pulse Rate Respiratory 22 Rate Blood Pressure (mmHg) O2 Sat by Pulse Oximetry Oxygen Devices in Use Now: Nasal Cannula Appearance: alert, NAD Eyes: No Scleral Icterus, PERRLA Ears/Nose/Mouth/Throat: NL Teeth, Lips, Gums, Mucous Membranes Moist Neck: NL Appearance and Movements; NL JVP, Trachea Midline Respiratory: Symmetrical Chest Expansion and Respiratory Effort, - - course, diminished, expiratory wheeze bilat Abdominal: NL Sounds; No Tenderness; No Distention Lymphatic: No Cervical Adenopathy Extremities: No Edema, No Clubbing, Cyanosis Skin: No Rash or Ulcers Neurological: Alert and Oriented x 3, NL Sensation, NL Gait Nutrition: Taking PO's Result Diagrams: 12/29/18 04:58 12/29/18 04:58 Additional Lab and Data: Lab Results 12/28/18 Range/Units 10:03 Influenza A (Rapid) Negative (Negative) Influenza B (Rapid) Negative (Negative) Microbiology and Other Data: Microbiology 12/29/18 11:30 Gram Stain - Final Sputum Expectorated 12/28/18 14:00 Aerobic Blood Culture - Preliminary Blood Venous No Growth Day 1 Anaerobic Blood Culture - Preliminary No Growth Day 1 12/28/18 12:55 Aerobic Blood Culture - Preliminary Blood Venous No Growth Day 1 Anaerobic Blood Culture - Preliminary No Growth Day 1 12/28/18 09:46 Influenza Types A,B Antigen - Final Nasal Specimen received for Influenza A/B Molecular testing Diagnostic Imaging: Patient Name: ELAINA STAUFFER Medical Record#: [id number] Ordering Physician: Patti Ramírez MD Acct.#: [id number] : 1950 Age: 68 Sex: F Location: EMERGENCY DEPARTMENT Exam Date: 12/28/18 1240 ADM Status: REG ER Order Information: CTA CHEST Accession Number: [id number] CPT: 69977 Indication: Increasing shortness of breath with history of lung cancer. Contrast: Administered 66.3 ml of OMNIPAQUE 350 mg/ml CTA of the chest performed after IV contrast administration. Coronal and sagittal reconstructed images were obtained. The pulmonary arterial tree is well opacified. There are no filling defects present to suggest pulmonary embolus. The aorta demonstrates no evidence of aortic dissection although aortic atherosclerosis is noted. No aneurysmal dilatation is noted. There is some fibrosis adjacent to the mediastinum in the left upper lobe medially. This is in the region of prior mass and this likely represents post radiation change and is unchanged from 1919. Emphysematous changes of the lung pichardo are noted. Nodular density is noted in the left lower lobe posteriorly. This was not present previously and measures approximately 5 mm. Pleural-based nodule is noted in the left lower lobe measuring 5 mm. These appear to be progressive since November 09, 2018. Additional nodular density in the left base measures 0.4 cm. In the left lung base in the left costophrenic angle there is rounded density with adjacent infiltrate measuring up to 1.3 cm. Pleural thickening is noted in the right minor fissure. IMPRESSION: Nodules in the periphery of the left lower lobe appear to be new or increased in size when compared to previous exam of November 09, 2018. I cannot totally exclude metastatic disease. In addition nodule/infiltrate is noted in the left lower lobe measuring 1.3 cm. This was not identified previously and although may represent metastatic disease. Inflammatory changes surrounding this lesion is not excluded. No evidence of pulmonary embolus is noted. 1 of 2 Assess/Plan/Problems-Billing Assessment: This is a 68 year old female with hx of COPD and lung CA that presents with SOB x4 days, admitted with COPD exacerbation and PNA. - Patient Problems (1) Acute on chronic respiratory failure with hypoxia Code(s): J96.21 - ACUTE AND CHRONIC RESPIRATORY FAILURE WITH HYPOXIA SNOMED Code(s): 92541027 Comment: - History of COPD, now with increased SOB x4 days and new oxygen requirement - CT as above - Atbx, O2 and pulmonary toilet - Concern for changes on CT for advancing disease versus infection - Recent PFTs show severe obstructive lung disease - May consider consultation with Dr. Augustin if no improvement tomorrow (2) CAP (community acquired pneumonia) Current Visit: Yes Status: Acute Code(s): J18.9 - PNEUMONIA, UNSPECIFIED ORGANISM SNOMED Code(s): 370825185 Comment: - Cough, SOB, fevers and tahcycardia consistent with CAP - Nebs increased to Q4h scheduled - Continue flutter valve, home inhalers, ceftriaxone and doxy, mucinex and tessalon, prednisone daily - Wean O2 as tolerated (3) Lung cancer Code(s): C34.90 - MALIGNANT NEOPLASM OF UNSP PART OF UNSP BRONCHUS OR LUNG SNOMED Code(s): 915261381 Comment: - Hx of non small cell lung carcinoma - Dr Neff consulted and will evaluate new CT (4) Full code status Current Visit: Yes Code(s): Z78.9 - OTHER SPECIFIED HEALTH STATUS SNOMED Code(s): 220323274 (5) DVT prophylaxis Code(s): [id number] - SNOMED Code(s): 366580400 Comment: - HSQ Status and Disposition: Inpatient, dispo TBD.
[2018-12-30] MEDS: cefTRIAXone(*) 1 GM in NS 0.9% 50 ML* 50 ML IVPB SCH (16:42)
[2018-12-30] MEDS: hydrOXYzine HCL TAB* 50 MG PO SCH (20:25)
[2018-12-31] MEDS: Albuterol/Ipratropium NEB.SOL* Albuterol 2.5 MG/Ipratropium 0.5 MG 3 ML INH SCH (03:14)
[2018-12-31] MEDS: Heparin VIAL(*) 5000 UNITS/ML VIAL (FIVE THOUSAND) SUBCUT SCH ×3 (06:52→21:34)
[2018-12-31] MEDS: Famotidine TAB* 20 MG PO SCH ×2 (09:39→21:35)
[2018-12-31] MEDS: guaiFENesin ER TAB 600 MG PO SCH ×2 (09:39→21:35)
[2018-12-31] MEDS: Conjugated Estrogens TAB* 0.625 MG TAB PO SCH (09:39)
[2018-12-31] MEDS: Magnesium Oxide TAB* 400 MG PO SCH (09:39)
[2018-12-31] MEDS: Losartan TAB* 25 MG PO SCH (09:40)
[2018-12-31] MEDS: DOXYcycline IV* 100 MG in NS 0.9% 250 ML* 250 ML IVPB SCH ×2 (09:40→20:31)
[2018-12-31] MEDS: Cetirizine* 10 MG TAB PO SCH ×2 (09:40→21:34)
[2018-12-31] MEDS: predniSONE TAB* 20 MG PO SCH (09:40)
[2018-12-31] MEDS: Cyanocobalamin TAB* 500 MCG PO SCH (09:40)
[2018-12-31] MEDS: Albuterol 2.5 MG/3 ML NEB.SOL* (0.083%) INH PRN ×3 (09:43→20:51)
--- NOTE | 2018-12-31 10:31 | PN ---
Subjective Date of Service: 12/31/18 Interval History: Ms. Carrero is feeling very poor this morning. She is having significant SOB and feels as though she cannot catch her breath just sitting in bed. She feels like she is not able to take a full breath. She has been up to the bathroom, but has a lot of difficulty with that short period of ambulation. She reports she was feeling a little better yesterday morning, but by the afternoon was feeling worse again. She reports she is not sleeping well d/t her SOB. She has an occasional cough, not very productive. Denies CP. Nursing reports she looked better this morning until she showered and has been SOB since then. Saturating well on 3L NC. Family History: Unchanged from Admission Social History: Unchanged from Admission Past Medical History: Unchanged from Admission Objective Active Medications: Acetaminophen (Tylenol Tab*) 650 mg PO Q6H PRN FEVER/PAIN Albuterol (Ventolin 2.5 Mg/3 Ml Neb.Michelle*) 2.5 mg INH Q2H PRN SOB/WHEEZING Benzonatate (Tessalon Cap*) 100 mg PO BID PRN COUGH Cetirizine HCl (Zyrtec*) 10 mg PO BID [facility] Cyanocobalamin (Vitamin B12 Tab*) 1,000 mcg PO DAILY [facility] Estrogens Conjugated (Premarin Tab*) 0.625 mg PO DAILY [facility] Famotidine (Pepcid Tab*) 20 mg PO BID [facility]; Protocol Guaifenesin (Mucinex*) 1,200 mg PO BID [facility] Heparin Sodium (Porcine) (Heparin Vial(*)) 5,000 units SUBCUT Q8HR [facility] Heparin Sodium (Porcine) (Heparin Flush Port (Ivad)) 5 ml FLUSH DAILY [facility]; Protocol Hydroxyzine HCl (Atarax Tab*) 50 mg PO BEDTIME [facility] Doxycycline Hyclate 100 mg/ (Sodium Chloride) 250 mls @ 250 mls/hr IVPB Q12H [facility] Ceftriaxone Sodium 1 gm/ (Sodium Chloride) 50 mls @ 200 mls/hr IVPB Q24H [facility] Losartan Potassium (Cozaar Tab*) 50 mg PO QAM [facility] Magnesium Oxide (Magox 400 Tab*) 400 mg PO DAILY [facility] Methylprednisolone Sodium Succinate (Solu-Medrol 40 Mg) 40 mg IV Q8H [facility] Ondansetron HCl (Zofran Inj*) 4 mg IV Q6H PRN NAUSEA Umeclidinium/Vilanterol (Anoro 62.5/25 Ellipta Device (Nf)) 1 inh INH DAILY PRN SHORTNESS OF BREATH Vital Signs - 8 hr 12/31/18 12/31/18 12/31/18 03:13 03:16 07:37 Temperature 98.0 F 97.6 F Pulse Rate 86 94 90 Respiratory 16 20 25 Rate Blood Pressure 150/60 154/73 (mmHg) O2 Sat by Pulse 98 99 98 Oximetry Oxygen Devices in Use Now: Nasal Cannula - 3L Appearance: Middle aged female sitting in bed, pursed lip breathing and dyspneic Eyes: No Scleral Icterus Ears/Nose/Mouth/Throat: Mucous Membranes Moist Neck: NL Appearance and Movements; NL JVP, Trachea Midline Respiratory: Symmetrical Chest Expansion and Respiratory Effort, - - Very diminished throughout with faint scattered wheezes Cardiovascular: NL Sounds; No Murmurs; No JVD, RRR Abdominal: NL Sounds; No Tenderness; No Distention Extremities: No Edema Skin: No Rash or Ulcers Neurological: Alert and Oriented x 3 Lines/Tubes/Other Access: Clean, Dry and Intact Peripheral IV Nutrition: Taking PO's Result Diagrams: 12/29/18 04:58 12/29/18 04:58 Assess/Plan/Problems-Billing Assessment: Ms. Carrero is a 68 year old F with PMH of COPD, chronic hypoxic respiratory failure on 2L at HS, and lung CA that presents with SOB x4 days, admitted with COPD exacerbation and PNA. - Patient Problems (1) COPD exacerbation Code(s): J44.1 - CHRONIC OBSTRUCTIVE PULMONARY DISEASE W (ACUTE) EXACERBATION Comment: - Increased SOB and newly productive cough x4 days prior to admission - Recent PFTs show severe obstructive lung disease - Remains on 3L NC; typically on 2L at HS only - Remains quite dyspneic despite 3 days of treatment; will consult with Pulmonology tomorrow if not improved after 24 hr on Solu-Medrol - Continue nebs, Anoro; change from prednisone to Solu-Medrol (2) CAP (community acquired pneumonia) Code(s): J18.9 - PNEUMONIA, UNSPECIFIED ORGANISM Comment: - Cough, SOB, fevers and tahcycardia consistent with CAP - Wean oxygen as tolerated - Flutter valve - Continue ceftriaxone and doxy, mucinex, tessalon (3) Acute on chronic respiratory failure with hypoxia Code(s): J96.21 - ACUTE AND CHRONIC RESPIRATORY FAILURE WITH HYPOXIA Comment: - Secondary to pneumonia and COPD exacerbation - Typically on 2L NC at HS - CT shows chances concerning for advancing lung cancer versus infection - Plan as above (4) Lung cancer Code(s): C34.90 - MALIGNANT NEOPLASM OF UNSP PART OF UNSP BRONCHUS OR LUNG Comment: - Hx of non small cell lung carcinoma, in remission - Dr Neff reviewed CT and concerned that lesions are larger and there may be new mets - Will need outpt f/u with Oncology (5) DVT prophylaxis Comment: - Heparin SQ (6) Full code status Code(s): Z78.9 - OTHER SPECIFIED HEALTH STATUS Comment: Status and Disposition: Inpatient. Anticipate d/c home when respiratory status is stable. Attending: Nakia Martini
[2018-12-31] MEDS: methylPREDNISolone SOD 40 MG* 1 ML VIAL IV SCH ×2 (11:34→20:11)
--- NOTE | 2018-12-31 16:25 | CONS ---
CC: Dr. Daysi Joseph; Dr. Alexei West * MEDICAL ONCOLOGY CONSULTATION NOTE: DATE OF CONSULT: 12/28/18 REASON FOR CONSULT: Question recurrence of a [id number] lung cancer. HISTORY OF PRESENT ILLNESS: Ms. Carrero is a 68-year-old female with a history of severe COPD. She has been a long-time smoker. She presents at this time with a 4- day history of worsening shortness of breath and inability to take more than just a few steps. She had just returned from vacation, developed some achy joints and chills, but did not check her temperature. She reports she has had a chronic cough, but she is now bringing up green sputum. She has been wheezing worse, especially if she lies down. This is helped modestly with inhalers. She recently saw Dr. Augustin about 1 month ago. She was placed on Anoro and is still on Flovent. Her last previous hospitalization was approximately 2 years ago when she was hospitalized while a vacation in [place] and had documented influenza at that time. Since admission, she has been treated with ongoing inhalers and nebulizers along with high-dose steroids. Given the possibility of a community-acquired pneumonia, she has been treated with ceftriaxone and doxycycline as well. She is only modestly better and the hospitalist service is continuing to try to improve her underlying COPD exacerbation without obvious underlying pneumonia. Most recent imaging prior to this admission was a CT scan of the chest on . At that time, they were treated with related changes in the left lung and signs of COPD, but no signs of any active recurrence of lung cancer. Her original diagnosis of lung cancer was in 2014 when she had a fine-needle aspiration of the left lung, which revealed poorly differentiated non-small- cell lung cancer with predominantly adenocarcinomic features. However, there was some suggestion of some squamous differentiation as well. Tumor was TTF-1 strongly positive. CK5/6 focally positive, CK7 strongly positive, CK20 negative. Tumor was also focally positive for p63 and positive for napsin A. Special tests included ALK gene rearrangement, which was negative; and EGFR which was also negative. She was treated for her T3N1M0 [id number] lung cancer with a cisplatinum and etoposide along with radiation therapy, which was completed in July 2015. She had a local recurrence in the left lung in May 2017, which was treated with a course of SBRT. She has been followed up since and CT scans have been obtained approximately every 3 months with the most recent scan as discussed above in October. It should be noted that at the time of recurrence in 2017, she did have a repeat biopsy, which revealed adenocarcinoma consistent with her prior primary and at that time, PD-L1 staining was performed and was negative, as was the BRAF mutation. During this admission, CTA has been obtained and is personally reviewed. There are 3 small pulmonary nodules, each measuring approximately 5 mm in the left lung field. Two of these, however, seen in retrospect on the CT scan in October , although they have grown from that time. In addition, there is a rounded density with adjacent infiltrate measuring 1.3 cm near the left costophrenic angle. Although this was done as a CTA, no evidence for pulmonary embolism was noted. PAST MEDICAL HISTORY: Otherwise significant for hypertension, status post hysterectomy. COPD. MEDICATIONS: On admission include: 1. Losartan 50 mg daily. 2. Combivent 1 puff 4 times per day. 3. Ventolin 1 puff q.4 hours p.r.n. 4. Premarin 0.625 mg daily. 5. Magnesium oxide 500 mg daily. 6. Flovent 2 puffs b.i.d. 7. Xyzal 5 mg daily. 8. Ranitidine 150 mg daily. 9. Hydroxyzine 25 mg daily. 10. Anoro 1 puff daily. 11. Multivitamin, vitamin B12 1000 units p.o. daily. ALLERGIES: FLUTICASONE and SALMETEROL. FAMILY HISTORY: Mother of breast cancer. Father of esophageal cancer. Sister of brain cancer. SOCIAL HISTORY: Smoked up to 2 packs per day for 30 years, quit around the time of her lung cancer diagnosis. Occasional alcohol. She is . REVIEW OF SYSTEMS: Negative except as discussed above. PHYSICAL EXAM: A 68-year-old female who appears somewhat short of breath even sitting up in bed and coughing frequently during our discussions. Cough is nonproductive. Temperature this admission has been as high as 102. Has been afebrile for the past almost 48 hours. Blood pressure 146/61, pulse 87. HEENT : PERRL, EOMI. No erythema or exudates. No palpable cervical, supraclavicular , or axillary adenopathy. Lungs: With diffuse wheezes. No rales or rhonchi. Diminished breath sounds, especially the bases. Heart: Regular rate and rhythm without murmurs, rubs, or gallops. Abdomen: Soft and nontender without masses or organomegaly. Extremities: No edema. Back: No CVA or spinal tenderness. DIAGNOSTIC STUDIES/LAB DATA: White count 9000, H and H 30/10.6, platelet count 239,000. Chemistries with normal renal function and hepatic function. IMPRESSION AND PLAN: A 68-year-old female with [id number] lung cancer diagnosed in July 2015, at that time was T3N1M0 with local recurrence, documented with biopsy in May 2017. She now is here with a chronic obstructive pulmonary disease exacerbation. CT scan of the chest includes abnormalities of left lower lobe, which are suspicious but certainly not diagnostic for recurrence of lung cancer. The 3 tiny nodules are too small to light up on PET scan and too small to biopsy. The larger lesion could very well be an infiltrate. With the current antibiotics, we will see if this clears. If it does not clear, a biopsy of this area would certainly be warranted. If it does clear, then continued followup CT scans would be the most appropriate course. If there is significant growth, then further biopsies may be in order. Alternatively, if the lesions grow significantly in size, empiric re-treatment for second recurrence would also be possible. The patient will continue to be followed as an outpatient through our office. [id number]/[facility] #: [id number] JACQUIE
[2018-12-31] MEDS: cefTRIAXone(*) 1 GM in NS 0.9% 50 ML* 50 ML IVPB SCH (16:41)
[2018-12-31] MEDS: hydrOXYzine HCL TAB* 50 MG PO SCH (21:35)
[2019-01-01] MEDS: methylPREDNISolone SOD 40 MG* 1 ML VIAL IV SCH ×3 (03:47→19:17)
[2019-01-01] MEDS: Albuterol 2.5 MG/3 ML NEB.SOL* (0.083%) INH PRN ×3 (05:10→21:52)
[2019-01-01] MEDS: Heparin VIAL(*) 5000 UNITS/ML VIAL (FIVE THOUSAND) SUBCUT SCH ×3 (06:15→20:08)
[2019-01-01] MEDS: DOXYcycline IV* 100 MG in NS 0.9% 250 ML* 250 ML IVPB SCH ×2 (08:46→19:28)
[2019-01-01] MEDS: Cyanocobalamin TAB* 500 MCG PO SCH (08:49)
[2019-01-01] MEDS: guaiFENesin ER TAB 600 MG PO SCH ×2 (08:50→20:07)
[2019-01-01] MEDS: Magnesium Oxide TAB* 400 MG PO SCH (08:50)
[2019-01-01] MEDS: Losartan TAB* 25 MG PO SCH (08:51)
[2019-01-01] MEDS: Famotidine TAB* 20 MG PO SCH ×2 (08:51→20:07)
[2019-01-01] MEDS: Conjugated Estrogens TAB* 0.625 MG TAB PO SCH (08:51)
[2019-01-01] MEDS: Cetirizine* 10 MG TAB PO SCH ×2 (08:52→20:07)
--- NOTE | 2019-01-01 11:18 | PN ---
Subjective Date of Service: 01/01/19 Interval History: Ms. Carrero is feeling better today. She reports sleeping about 4 hours last night and feels she has improved since then. She is less SOB and has been able to ambulate back and forth from the bathroom without as much difficulty as yesterday. Cough is less frequent. She still feels far from her baseline respiratory status. Denies CP, N/V. Family History: Unchanged from Admission Social History: Unchanged from Admission Past Medical History: Unchanged from Admission Objective Active Medications: Acetaminophen (Tylenol Tab*) 650 mg PO Q6H PRN FEVER/PAIN Albuterol (Ventolin 2.5 Mg/3 Ml Neb.Michelle*) 2.5 mg INH Q4H PRN SOB/WHEEZING Benzonatate (Tessalon Cap*) 100 mg PO BID PRN COUGH Cetirizine HCl (Zyrtec*) 10 mg PO BID [facility] Cyanocobalamin (Vitamin B12 Tab*) 1,000 mcg PO DAILY [facility] Estrogens Conjugated (Premarin Tab*) 0.625 mg PO DAILY [facility] Famotidine (Pepcid Tab*) 20 mg PO BID [facility]; Protocol Guaifenesin (Mucinex*) 1,200 mg PO BID [facility] Heparin Sodium (Porcine) (Heparin Vial(*)) 5,000 units SUBCUT Q8HR [facility] Heparin Sodium (Porcine) (Heparin Flush Port (Ivad)) 5 ml FLUSH DAILY [facility]; Protocol Hydroxyzine HCl (Atarax Tab*) 50 mg PO BEDTIME [facility] Doxycycline Hyclate 100 mg/ (Sodium Chloride) 250 mls @ 250 mls/hr IVPB Q12H [facility] Ceftriaxone Sodium 1 gm/ (Sodium Chloride) 50 mls @ 200 mls/hr IVPB Q24H [facility] Losartan Potassium (Cozaar Tab*) 50 mg PO QAM [facility] Magnesium Oxide (Magox 400 Tab*) 400 mg PO DAILY [facility] Methylprednisolone Sodium Succinate (Solu-Medrol 40 Mg) 40 mg IV Q8H [facility] Ondansetron HCl (Zofran Inj*) 4 mg IV Q6H PRN NAUSEA Umeclidinium/Vilanterol (Anoro 62.5/25 Ellipta Device (Nf)) 1 inh INH DAILY Vital Signs - 8 hr 01/01/19 01/01/19 01/01/19 05:13 07:57 08:46 Temperature 97.3 F Pulse Rate 80 87 Respiratory 20 18 Rate Blood Pressure 148/79 (mmHg) O2 Sat by Pulse 98 98 94 Oximetry Oxygen Devices in Use Now: Nasal Cannula - 3L Appearance: Middle-aged female sitting in chair in NAD, mild dyspnea while speaking Eyes: No Scleral Icterus Ears/Nose/Mouth/Throat: Mucous Membranes Moist Neck: NL Appearance and Movements; NL JVP, Trachea Midline Respiratory: Symmetrical Chest Expansion and Respiratory Effort, - - Diminished with expiratory wheezing throughout Cardiovascular: NL Sounds; No Murmurs; No JVD, RRR Abdominal: NL Sounds; No Tenderness; No Distention Extremities: No Edema Skin: No Rash or Ulcers Neurological: Alert and Oriented x 3 Lines/Tubes/Other Access: Clean, Dry and Intact Peripheral IV Nutrition: Taking PO's Result Diagrams: 12/29/18 04:58 12/29/18 04:58 Assess/Plan/Problems-Billing Assessment: Ms. Carrero is a 68 year old F with PMH of COPD, chronic hypoxic respiratory failure on 2L at HS, and lung CA that presents with SOB x4 days, admitted with COPD exacerbation and PNA. - Patient Problems (1) COPD exacerbation Code(s): J44.1 - CHRONIC OBSTRUCTIVE PULMONARY DISEASE W (ACUTE) EXACERBATION Comment: - Increased SOB and newly productive cough x4 days prior to admission - Recent PFTs show severe obstructive lung disease - Remains on 3L NC; typically on 2L at HS only - Still dyspneic despite 4 days of treatment, but improved after switch to IV steroids - Appreciate Pulmonology consult - Continue nebs, Solu-Medrol; change from Anoro (NF) to Dulera (2) CAP (community acquired pneumonia) Code(s): J18.9 - PNEUMONIA, UNSPECIFIED ORGANISM Comment: - Cough, SOB, fevers and tahcycardia consistent with CAP - Wean oxygen as tolerated - Flutter valve - Continue ceftriaxone and doxy, mucinex, tessalon (3) Acute on chronic respiratory failure with hypoxia Code(s): J96.21 - ACUTE AND CHRONIC RESPIRATORY FAILURE WITH HYPOXIA Comment: - Secondary to pneumonia and COPD exacerbation - Typically on 2L NC at HS - CT shows chances concerning for advancing lung cancer versus infection - Plan as above (4) Sepsis Comment: - Resolved - Met sepsis criteria on admission with fever and tachcardia, source is pneumonia (5) Lung cancer Code(s): C34.90 - MALIGNANT NEOPLASM OF UNSP PART OF UNSP BRONCHUS OR LUNG Comment: - Hx of non small cell lung carcinoma, in remission - Dr Neff reviewed CT and concerned that lesions are larger and there may be new mets - Will need outpt f/u with Oncology (6) DVT prophylaxis Comment: - Heparin SQ (7) Full code status Code(s): Z78.9 - OTHER SPECIFIED HEALTH STATUS Comment: Status and Disposition: Inpatient. Anticipate d/c home when respiratory status is stable, possibly 2 more days. Attending: Nakia Martini
[2019-01-01] MEDS: Mometasone/Formoter 200/5 MDI INH SCH ×2 (13:23→20:17)
[2019-01-01] MEDS: cefTRIAXone(*) 1 GM in NS 0.9% 50 ML* 50 ML IVPB SCH (17:43)
[2019-01-01] MEDS: hydrOXYzine HCL TAB* 50 MG PO SCH (20:08)
--- NOTE | 2019-01-01 21:39 | CONS ---
PULMONARY CONSULTATION REPORT: DATE OF CONSULT: 01/01/19 CONSULTATION REQUESTED BY: Kajal Somers NP. REASON FOR CONSULT: Evaluation of shortness of breath. HISTORY OF PRESENT ILLNESS: The patient is a 68-year-old female with non-small cell lung cancer diagnosed in 2017 with recurrence, status post treatment, also with history of severe COPD, alf smoking history, hypertension. The patient presents for evaluation of worsening shortness of breath. The patient recently traveled and started having worsening shortness of breath and cough since she returned. The patient reported significant dyspnea even with minimal exertion. The patient reports fevers, chills, and significant cough with green brown phlegm. The patient was seen by me about a month ago at which time she was started on Anoro. She is also on Flovent. She was on Combivent in the past , which has not been very effective and she was advised to hold while she was on long-acting bronchodilators. The patient denies abdominal pain, diarrhea, chest pain, nausea, vomiting, dysuria. The patient has been having worsening swelling of the lower extremities and orthopnea. The patient is on O2 supplementation at baseline, has required to increase her O2 to 3 L to maintain saturations at or above 90%. Further evaluation in the emergency room included chest x-ray and CT of the chest. I personally reviewed the chest x-ray and CT of the chest. Her chest x-ray showed evidence of patchy airspace opacity in the left paramediastinal area and nonspecific opacity in the left costophrenic angle. CT of the chest was also personally reviewed - no evidence of filling defects in pulmonary arteries. The patient is noted to have subcentimeter pulmonary nodules in the periphery of left lower lobe with a nodule surrounding infiltrate in the left lower lobe measuring 1.3 cm. She also has pleural base nodule measuring 5 mm in the left lower lobe. The patient without significant mediastinal or hilar adenopathy. Emphysema noted. 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 The patient was admitted for management of acute COPD exacerbation. The patient reports slight improvement in her shortness of breath. She was also started on Solu-Medrol 40 q.8. She has been receiving bronchodilators. She is requiring O2 supplementation at 3 L with O2 saturation around 96 to 98. She has remained afebrile since admission. PAST MEDICAL HISTORY: 1. Non-small cell lung cancer in 2015 with recurrence in 2017. 2. COPD with significant emphysema. 3. Hypertension. PAST SURGICAL HISTORY: Hysterectomy. MEDICATIONS: 1. Magnesium oxide. 2. Losartan. 3. Combivent as needed. 4. Anoro. 5. Ventolin as needed. 6. Premarin. 7. Flovent. 8. Vitamin B12. 9. Hydroxyzine. 10. Ranitidine. 11. Xyzal. 12. Multivitamin and B12. ALLERGIES: FLUTICASONE, SALMETEROL. FAMILY HISTORY: Mother of breast cancer. Father of esophageal cancer. Sister has brain cancer. SOCIAL HISTORY: The patient smoked 1 to 2 packs per day for 30 years, then quit several years ago. The patient drinks occasional alcohol, denies illicit drug use. 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 REVIEW OF SYSTEMS: A 14-point review of systems performed and as per HPI. PHYSICAL EXAM: The patient in bed, in no significant distress. Vital Signs: Temperature 97, pulse 95 beats per minute, respiratory rate 24 per minute, O2 sat 96% on 3 L, blood pressure 151/58. HEENT: Pupils are equal and reactive to light. Mucous membranes moist. Lungs: Diminished air entry bilaterally, expiratory wheeze. Cardiovascular: S1, S2 present, regular. Abdomen: Soft, nondistended. Bowel sounds present. Extremities: Normal range of motion. Skin : No rash or bruises. Neurologic: Alert, awake, oriented x3. No focal deficits. DIAGNOSTIC STUDIES/LAB DATA: WBC count 9.0, hemoglobin 10.6, hematocrit 33, platelet count 239. Blood gas analysis showed pH of 7.41, pCO2 of 42, pO2 73, bicarb 26 and O2 sat 97. Sodium 132, potassium 4.1, chloride 99, bicarb 29, BUN 13, creatinine 0.73, glucose 149, lactic acid 1.1. BNP within normal limits. Influenza A and B negative. CTA and chest x-ray as described above in HPI. IMPRESSION/RECOMMENDATIONS: 68-year-old female with a history of significant emphysema, history of non-small cell lung cancer with recurrence in 2017 has been undergoing surveillance scan since then with no significant recurrence of the disease with new pulmonary nodules now on recent CT. 1. Acute chronic obstructive pulmonary disease exacerbation secondary to recent travel and possible exposure to sick contacts. 2. New pulmonary nodules, infectious versus malignant. The patient with acute chronic obstructive pulmonary disease exacerbation, improving on current treatment. I agree with current antibiotic choice in a patient with pneumonia/bronchitis. Will continue with the dose of Solu-Medrol at this time. She is still symptomatic, would taper as symptoms improve. Continue with bronchodilators q.4 hours p.r.n. Mucus clearance, discussed flutter device usage. Titrate FiO2 as tolerated. No significant hypercapnia on blood gas. Echocardiogram recently showed left ventricle, which is hyperdynamic with mild increased left ventricular outflow tract obstruction, normal ejection fraction with no significant change comparison with prior echo. In terms of lung nodule, she will need a repeat CT to ensure that this is not infectious or inflammatory in nature. Thank you for allowing me to participate in the care of your patient. I will follow up with you. [id number]/[facility] #: [id number] JACQUIE
[2019-01-02] MEDS: methylPREDNISolone SOD 40 MG* 1 ML VIAL IV SCH ×3 (05:38→19:47)
[2019-01-02] MEDS: Heparin VIAL(*) 5000 UNITS/ML VIAL (FIVE THOUSAND) SUBCUT SCH ×3 (05:38→20:43)
[2019-01-02 06:44] LABS: ABS Basophils 0.1 10^3/ul (0-0.2); ABS Eosinophils 0 10^3/ul (0-0.6); ABS Lymphocytes 1.5 10^3/ul (1.0-4.8); ABS Monocytes 0.8 10^3/ul (0-0.8); ABS Neutrophils 11.1 10^3/ul (1.5-7.7); ABS Nucleated RBC 0 10^3/ul; Eosinophil % 0 %; Hematocrit 38 % (35-47); Hemoglobin 12.6 g/dl (12.0-16.0); Lymphocyte % 11.3 %; Mean Corpuscular HGB Conc 33 g/dl (31-36); Mean Corpuscular Hemoglobin 28 pg (27-31); Mean Corpuscular Volume 86 fL (80-97); Mean Platelet Volume 7.6 fL (7.4-10.4); Nucleated Red Blood Cells % 0.1; Platelet Count 361 10^3/ul (150-450); Red Blood Count 4.49 10^6/ul (4.00-5.40); Red Cell Distribution Width 13 % (10.5-15); White Blood Count 13.5 10^3/ul (3.5-10.8)
[2019-01-02 07:04] LABS: BUN/Creatinine Ratio 26.6 (8-20); Calcium 9.6 mg/dL (8.6-10.3); EGFR African American 87.8 (>60); EGFR Non-African American 72.6 (>60); Magnesium 1.8 mg/dL (1.9-2.7); Potassium 4.8 mmol/L (3.5-5.0)
[2019-01-02] MEDS: Mometasone/Formoter 200/5 MDI INH SCH ×2 (08:34→19:31)
--- NOTE | 2019-01-02 08:45 | PN ---
Subjective Date of Service: 01/02/19 Interval History: Ms. Carrero feels better today. She feels as though her SOB has improved. Rarely coughing. Somewhat nervous to get up and shower as she has had difficulty with that the last couple days. Still on 2L NC. Using a flutter valve that was given to her by Dr. Augustin yesterday. She denies CP, N/V, dizziness. Family History: Unchanged from Admission Social History: Unchanged from Admission Past Medical History: Unchanged from Admission Objective Active Medications: Acetaminophen (Tylenol Tab*) 650 mg PO Q6H PRN FEVER/PAIN Albuterol (Ventolin 2.5 Mg/3 Ml Neb.Michelle*) 2.5 mg INH Q4H PRN SOB/WHEEZING Benzonatate (Tessalon Cap*) 100 mg PO BID PRN COUGH Cetirizine HCl (Zyrtec*) 10 mg PO BID [facility] Cyanocobalamin (Vitamin B12 Tab*) 1,000 mcg PO DAILY [facility] Estrogens Conjugated (Premarin Tab*) 0.625 mg PO DAILY [facility] Famotidine (Pepcid Tab*) 20 mg PO BID [facility]; Protocol Guaifenesin (Mucinex*) 1,200 mg PO BID [facility] Heparin Sodium (Porcine) (Heparin Vial(*)) 5,000 units SUBCUT Q8HR [facility] Heparin Sodium (Porcine) (Heparin Flush Port (Ivad)) 5 ml FLUSH DAILY [facility]; Protocol Hydroxyzine HCl (Atarax Tab*) 50 mg PO BEDTIME [facility] Doxycycline Hyclate 100 mg/ (Sodium Chloride) 250 mls @ 250 mls/hr IVPB Q12H [facility] Ceftriaxone Sodium 1 gm/ (Sodium Chloride) 50 mls @ 200 mls/hr IVPB Q24H [facility] Losartan Potassium (Cozaar Tab*) 50 mg PO QAM [facility] Magnesium Oxide (Magox 400 Tab*) 400 mg PO BID [facility] Methylprednisolone Sodium Succinate (Solu-Medrol 40 Mg) 40 mg IV Q8H [facility] Mometasone Furoate/Formoterol Fumar (Dulera 200/5 Mdi*) 2 puff INH BID [facility] Ondansetron HCl (Zofran Inj*) 4 mg IV Q6H PRN NAUSEA Vital Signs - 8 hr 01/02/19 01/02/19 01/02/19 03:05 07:37 08:35 Temperature 97.7 F 97.4 F Pulse Rate 97 73 85 Respiratory 20 20 18 Rate Blood Pressure 162/88 142/75 (mmHg) O2 Sat by Pulse 95 97 95 Oximetry Oxygen Devices in Use Now: Nasal Cannula - 2L Appearance: Middle-aged female sitting in bed in NAD Eyes: No Scleral Icterus Ears/Nose/Mouth/Throat: Mucous Membranes Moist Neck: NL Appearance and Movements; NL JVP, Trachea Midline Respiratory: Symmetrical Chest Expansion and Respiratory Effort, - - Faint scattered wheezing, otherwise diminished throughout Cardiovascular: NL Sounds; No Murmurs; No JVD, RRR Abdominal: NL Sounds; No Tenderness; No Distention Extremities: No Edema Skin: No Rash or Ulcers Neurological: Alert and Oriented x 3 Lines/Tubes/Other Access: Clean, Dry and Intact Peripheral IV Nutrition: Taking PO's Result Diagrams: 01/02/19 06:20 01/02/19 06:20 Assess/Plan/Problems-Billing Assessment: Ms. Carrero is a 68 year old F with PMH of COPD, chronic hypoxic respiratory failure on 2L at HS, and lung CA that presents with SOB x4 days, admitted with COPD exacerbation and PNA. - Patient Problems (1) COPD exacerbation Code(s): J44.1 - CHRONIC OBSTRUCTIVE PULMONARY DISEASE W (ACUTE) EXACERBATION Comment: - Increased SOB and newly productive cough x4 days prior to admission - Recent PFTs show severe obstructive lung disease - Remains on 3L NC; typically on 2L at HS only - Dyspnea improved significant after switch to IV steroids - Appreciate Pulmonology consult; recommended continuing current treatment - Continue nebs, Solu-Medrol, Dulera (2) CAP (community acquired pneumonia) Code(s): J18.9 - PNEUMONIA, UNSPECIFIED ORGANISM Comment: - Cough, SOB, fevers and tahcycardia consistent with CAP - Wean oxygen as tolerated - Flutter valve - Continue ceftriaxone and doxy, mucinex, tessalon (3) Acute on chronic respiratory failure with hypoxia Code(s): J96.21 - ACUTE AND CHRONIC RESPIRATORY FAILURE WITH HYPOXIA Comment: - Secondary to pneumonia and COPD exacerbation - Typically on 2L NC at HS - CT shows chances concerning for advancing lung cancer versus infection - Plan as above (4) Sepsis Comment: - Resolved - Met sepsis criteria on admission with fever and tachcardia, source is pneumonia (5) Lung cancer Code(s): C34.90 - MALIGNANT NEOPLASM OF UNSP PART OF UNSP BRONCHUS OR LUNG Comment: - Hx of non small cell lung carcinoma, in remission - Dr Neff reviewed CT and concerned that lesions are larger and there may be new mets - Will need outpt f/u with Oncology (6) DVT prophylaxis Comment: - Heparin SQ (7) Full code status Code(s): Z78.9 - OTHER SPECIFIED HEALTH STATUS Comment: Status and Disposition: Inpatient. Anticipate d/c home when respiratory status is stable, possibly tomorrow if able to be weaned off oxygen. Attending: Aleena Garcia
[2019-01-02] MEDS: guaiFENesin ER TAB 600 MG PO SCH ×2 (09:14→20:42)
[2019-01-02] MEDS: Cyanocobalamin TAB* 500 MCG PO SCH (09:14)
[2019-01-02] MEDS: DOXYcycline IV* 100 MG in NS 0.9% 250 ML* 250 ML IVPB SCH ×2 (09:14→19:48)
[2019-01-02] MEDS: Conjugated Estrogens TAB* 0.625 MG TAB PO SCH (09:14)
[2019-01-02] MEDS: Famotidine TAB* 20 MG PO SCH ×2 (09:15→20:42)
[2019-01-02] MEDS: Losartan TAB* 25 MG PO SCH (09:15)
[2019-01-02] MEDS: Cetirizine* 10 MG TAB PO SCH ×2 (09:15→20:42)
[2019-01-02] MEDS: Magnesium Oxide TAB* 400 MG PO SCH ×2 (09:15→20:42)
--- NOTE | 2019-01-02 14:57 | PN ---
Progress Note - Progress Note Date of Service: 01/02/19 - Pulm f/u note Note: Pt seen and examined at bedside. Pt reports feeling better. Less SOB with ambulation. Has mild intermittent cough. Was not able to figure out how to use flutter device Active Medications Generic Name Dose Route Start Last Admin Trade Name Freq PRN Reason Stop Dose Admin Acetaminophen 650 mg 12/28/18 18:17 12/31/18 07:23 Tylenol Tab* PO 650 mg Q6H PRN Administration FEVER/PAIN Albuterol 2.5 mg 12/31/18 16:28 01/01/19 21:52 Ventolin 2.5 Mg/3 Ml Neb.Michelle* INH 2.5 mg Q4H PRN Administration SOB/WHEEZING Benzonatate 100 mg 12/28/18 18:17 12/29/18 21:01 Tessalon Cap* PO 100 mg BID PRN Administration COUGH Cetirizine HCl 10 mg 12/28/18 21:00 01/02/19 09:15 Zyrtec* PO 10 mg BID [facility] Administration Cyanocobalamin 1,000 mcg 12/29/18 09:00 01/02/19 09:14 Vitamin B12 Tab* PO 1,000 mcg DAILY [facility] Administration Estrogens Conjugated 0.625 mg 12/29/18 09:00 01/02/19 09:14 Premarin Tab* PO 0.625 mg DAILY [facility] Administration Famotidine 20 mg 12/28/18 21:00 01/02/19 09:15 Pepcid Tab* PO 20 mg BID [facility] Administration Protocol Guaifenesin 1,200 mg 12/28/18 21:00 01/02/19 09:14 Mucinex* PO 1,200 mg BID [facility] Administration Heparin Sodium (Porcine) 5,000 units 12/28/18 22:00 01/02/19 13:26 Heparin Vial(*) SUBCUT 5,000 units Q8HR [facility] Administration Heparin Sodium (Porcine) 5 ml 12/30/18 11:00 01/02/19 13:57 Heparin Flush Port (Ivad) FLUSH 5 ml DAILY [facility] Administration Protocol Hydroxyzine HCl 50 mg 12/28/18 21:00 01/01/19 20:08 Atarax Tab* PO 50 mg BEDTIME [facility] Administration Doxycycline Hyclate 100 mg/ 250 mls @ 250 mls/hr 12/28/18 20:00 03/12/19 09: 14 Sodium Chloride IVPB 250 mls/hr Q12H [facility] Administration Ceftriaxone Sodium 1 gm/ 50 mls @ 200 mls/hr 12/29/18 17:00 01/01/19 17:43 Sodium Chloride IVPB 200 mls/hr Q24H [facility] Administration Losartan Potassium 50 mg 12/29/18 09:00 01/02/19 09:15 Cozaar Tab* PO 50 mg QAM [facility] Administration Magnesium Oxide 400 mg 01/02/19 09:00 01/02/19 09:15 Magox 400 Tab* PO 400 mg BID [facility] Administration Methylprednisolone Sodium Succinate 40 mg 12/31/18 12:00 01/02/19 13:26 Solu-Medrol 40 Mg IV 40 mg Q8H [facility] Administration Mometasone Furoate/Formoterol Fumar 2 puff 01/01/19 12:00 01/02/19 08:34 Dulera 200/5 Mdi* INH 2 puff BID [facility] Administration Ondansetron HCl 4 mg 12/28/18 18:17 Zofran Inj* IV Q6H PRN NAUSEA Vital Signs Temp Pulse Resp BP Pulse Ox 98.5 F 86 20 144/71 93 01/02/19 11:39 01/02/19 11:39 01/02/19 11:39 01/02/19 11:39 01/02/19 11:39 O/E: Pt in NAD HEENT: PERRLA, No JVD Lungs: Diminished air entry b/l, scaterred wheeze+ CVS: S1, S2+, regular Abd: Soft, BS+ Ext: Normal ROM Skin: No rash Neuro: No focal deficits Laboratory Results - last 24 hr 01/02/19 01/02/19 06:20 06:20 WBC 13.5 H RBC 4.49 Hgb 12.6 Hct 38 MCV 86 MCH 28 MCHC 33 RDW 13 Plt Count 361 MPV 7.6 Neut % (Auto) 82.0 Lymph % (Auto) 11.3 [place] % (Auto) 5.9 Eos % (Auto) 0 Baso % (Auto) 0.8 Absolute Neuts (auto) 11.1 H Absolute Lymphs (auto) 1.5 Absolute Monos (auto) 0.8 Absolute Eos (auto) 0 Absolute Basos (auto) 0.1 Absolute Nucleated RBC 0 Nucleated RBC % 0.1 Sodium 133 L Potassium 4.8 Chloride 93 L Carbon Dioxide 34 H Anion Gap 6 BUN 21 Creatinine 0.79 Est GFR ( Amer) 87.8 Est GFR (Non-Af Amer) 72.6 BUN/Creatinine Ratio 26.6 H Glucose 119 H Calcium 9.6 Magnesium 1.8 L I/R: 68 y o F with h/o COPD, chronic hypoxic respiratory failure on 2L at HS, and Lung CA 2014 s/p recurrence 2017with recent travel, presented with SOB x4 days, being treated for COPD exacerbation and PNA/bronchitis. Pt improving clinically, still has wheeze and has diminished air entry. Has cough, able to expectorate phleghm Discussed use of flutter device Has small nodular lesions on CT, inflammatory versus recurrence of malignancy Will f/u with rpt CT to ensure resolution c/w bronchodilators Will change to po steroids tomorrow OOB to chair, ambulate as tolerated D/w Kajal Somers [employer]
[2019-01-02] MEDS: Albuterol 2.5 MG/3 ML NEB.SOL* (0.083%) INH PRN (17:02)
[2019-01-02] MEDS: cefTRIAXone(*) 1 GM in NS 0.9% 50 ML* 50 ML IVPB SCH (18:07)
[2019-01-02] MEDS: hydrOXYzine HCL TAB* 50 MG PO SCH (20:42)
[2019-01-03] MEDS: methylPREDNISolone SOD 40 MG* 1 ML VIAL IV SCH (04:58)
[2019-01-03] MEDS: Heparin VIAL(*) 5000 UNITS/ML VIAL (FIVE THOUSAND) SUBCUT SCH ×3 (05:01→20:42)
[2019-01-03] MEDS: Mometasone/Formoter 200/5 MDI INH SCH ×2 (08:36→19:12)
[2019-01-03] MEDS: DOXYcycline IV* 100 MG in NS 0.9% 250 ML* 250 ML IVPB SCH ×2 (09:39→20:40)
[2019-01-03] MEDS: Conjugated Estrogens TAB* 0.625 MG TAB PO SCH (09:47)
[2019-01-03] MEDS: Losartan TAB* 25 MG PO SCH (09:47)
[2019-01-03] MEDS: Famotidine TAB* 20 MG PO SCH ×2 (09:47→20:44)
[2019-01-03] MEDS: guaiFENesin ER TAB 600 MG PO SCH ×2 (09:48→20:44)
[2019-01-03] MEDS: Cyanocobalamin TAB* 500 MCG PO SCH (09:48)
[2019-01-03] MEDS: Magnesium Oxide TAB* 400 MG PO SCH ×2 (09:48→20:44)
[2019-01-03] MEDS: Cetirizine* 10 MG TAB PO SCH ×2 (09:48→20:44)
--- NOTE | 2019-01-03 11:18 | PN ---
Subjective Date of Service: 01/03/19 Interval History: Ms. Carrero is feeling much better today. She had a good night. Denies SOB. Still has a congested cough which is bothersome. No CP, N/V. She was hoping she would be d/c'd today. Nursing did walk test this morning and pt was noted to drop to 80% on RA while ambulating. She denies any dizziness or SOB while ambulating. Family History: Unchanged from Admission Social History: Unchanged from Admission Past Medical History: Unchanged from Admission Objective Active Medications: Acetaminophen (Tylenol Tab*) 650 mg PO Q6H PRN FEVER/PAIN Albuterol (Ventolin 2.5 Mg/3 Ml Neb.Michelle*) 2.5 mg INH Q4H PRN SOB/WHEEZING Benzonatate (Tessalon Cap*) 100 mg PO BID PRN COUGH Cetirizine HCl (Zyrtec*) 10 mg PO BID [facility] Cyanocobalamin (Vitamin B12 Tab*) 1,000 mcg PO DAILY [facility] Estrogens Conjugated (Premarin Tab*) 0.625 mg PO DAILY [facility] Famotidine (Pepcid Tab*) 20 mg PO BID [facility]; Protocol Guaifenesin (Mucinex*) 1,200 mg PO BID [facility] Heparin Sodium (Porcine) (Heparin Vial(*)) 5,000 units SUBCUT Q8HR [facility] Heparin Sodium (Porcine) (Heparin Flush Port (Ivad)) 5 ml FLUSH DAILY [facility]; Protocol Hydroxyzine HCl (Atarax Tab*) 50 mg PO BEDTIME [facility] Doxycycline Hyclate 100 mg/ (Sodium Chloride) 250 mls @ 250 mls/hr IVPB Q12H [facility] Ceftriaxone Sodium 1 gm/ (Sodium Chloride) 50 mls @ 200 mls/hr IVPB Q24H [facility] Losartan Potassium (Cozaar Tab*) 50 mg PO QAM [facility] Magnesium Oxide (Magox 400 Tab*) 400 mg PO BID [facility] Methylprednisolone Sodium Succinate (Solu-Medrol 40 Mg) 40 mg IV Q8H [facility] Mometasone Furoate/Formoterol Fumar (Dulera 200/5 Mdi*) 2 puff INH BID [facility] Ondansetron HCl (Zofran Inj*) 4 mg IV Q6H PRN NAUSEA Vital Signs - 8 hr 01/03/19 01/03/19 01/03/19 07:55 08:00 08:16 Temperature 97.4 F Pulse Rate 66 Respiratory 18 18 Rate Blood Pressure 137/71 (mmHg) O2 Sat by Pulse 95 91 Oximetry 01/03/19 01/03/19 01/03/19 08:17 08:21 08:38 Temperature Pulse Rate 82 Respiratory 14 Rate Blood Pressure (mmHg) O2 Sat by Pulse 80 91 90 Oximetry 01/03/19 08:39 Temperature Pulse Rate 82 Respiratory 14 Rate Blood Pressure (mmHg) O2 Sat by Pulse 90 Oximetry Oxygen Devices in Use Now: Nasal Cannula - 2L Appearance: Middle-aged female sitting in chair in NAD Eyes: No Scleral Icterus Ears/Nose/Mouth/Throat: Mucous Membranes Moist Neck: NL Appearance and Movements; NL JVP, Trachea Midline Respiratory: Symmetrical Chest Expansion and Respiratory Effort, - - Wheezes bilat bases, otherwise diminished throughout Cardiovascular: NL Sounds; No Murmurs; No JVD, RRR Abdominal: NL Sounds; No Tenderness; No Distention Extremities: No Edema Skin: No Rash or Ulcers Neurological: Alert and Oriented x 3 Lines/Tubes/Other Access: Clean, Dry and Intact Peripheral IV Nutrition: Taking PO's Result Diagrams: 01/02/19 06:20 01/02/19 06:20 Assess/Plan/Problems-Billing Assessment: Ms. Carrero is a 68 year old F with PMH of COPD, chronic hypoxic respiratory failure on 2L at HS, and lung CA that presents with SOB x4 days, admitted with COPD exacerbation and PNA. - Patient Problems (1) COPD exacerbation Code(s): J44.1 - CHRONIC OBSTRUCTIVE PULMONARY DISEASE W (ACUTE) EXACERBATION Comment: - Increased SOB and newly productive cough x4 days prior to admission - Recent PFTs show severe obstructive lung disease - Remains on 2L NC and desaturated on RA while ambulating; typically on 2L at HS only - Appreciate Pulmonology consult; recommended continuing current treatment - Continue nebs, Dulera; change to prednisone (2) CAP (community acquired pneumonia) Code(s): J18.9 - PNEUMONIA, UNSPECIFIED ORGANISM Comment: - Cough, SOB, fevers and tahcycardia consistent with CAP - Wean oxygen as tolerated - Flutter valve - Continue ceftriaxone and doxy (day 7/7), mucinex, tessalon (3) Acute on chronic respiratory failure with hypoxia Code(s): J96.21 - ACUTE AND CHRONIC RESPIRATORY FAILURE WITH HYPOXIA Comment: - Secondary to pneumonia and COPD exacerbation - Typically on 2L NC at HS - CT shows chances concerning for advancing lung cancer versus infection - Plan as above (4) Sepsis Comment: - Resolved - Met sepsis criteria on admission with fever and tachcardia, source is pneumonia (5) Lung cancer Code(s): C34.90 - MALIGNANT NEOPLASM OF UNSP PART OF UNSP BRONCHUS OR LUNG Comment: - Hx of non small cell lung carcinoma, in remission - Dr Neff reviewed CT and concerned that lesions are larger and there may be new mets - Will need outpt f/u with Oncology (6) DVT prophylaxis Comment: - Heparin SQ (7) Full code status Code(s): Z78.9 - OTHER SPECIFIED HEALTH STATUS Comment: Status and Disposition: Inpatient. Anticipate d/c home when respiratory status is stable, possibly tomorrow if able to be weaned off oxygen. Attending: Stiven Mccoy
[2019-01-03] MEDS: predniSONE TAB* 20 MG PO SCH (12:17)
[2019-01-03] MEDS: Albuterol 2.5 MG/3 ML NEB.SOL* (0.083%) INH PRN (14:53)
[2019-01-03] MEDS: cefTRIAXone(*) 1 GM in NS 0.9% 50 ML* 50 ML IVPB SCH (16:52)
--- NOTE | 2019-01-03 18:24 | PN ---
Progress Note - Progress Note Date of Service: 01/03/19 - Pulm f/u note Note: Pt seen and examined at bedside. Pt reported feeling slightly better this am however became SOB and hypoxic to 80`s while ambulating. Is coughing out lots of phleghm Active Medications Generic Name Dose Route Start Last Admin Trade Name Freq PRN Reason Stop Dose Admin Acetaminophen 650 mg 12/28/18 18:17 12/31/18 07:23 Tylenol Tab* PO 650 mg Q6H PRN Administration FEVER/PAIN Albuterol 2.5 mg 12/31/18 16:28 01/03/19 14:53 Ventolin 2.5 Mg/3 Ml Neb.Michelle* INH 2.5 mg Q4H PRN Administration SOB/WHEEZING Benzonatate 100 mg 12/28/18 18:17 12/29/18 21:01 Tessalon Cap* PO 100 mg BID PRN Administration COUGH Cetirizine HCl 10 mg 12/28/18 21:00 01/03/19 09:48 Zyrtec* PO 10 mg BID [facility] Administration Cyanocobalamin 1,000 mcg 12/29/18 09:00 01/03/19 09:48 Vitamin B12 Tab* PO 1,000 mcg DAILY [facility] Administration Estrogens Conjugated 0.625 mg 12/29/18 09:00 01/03/19 09:47 Premarin Tab* PO 0.625 mg DAILY [facility] Administration Famotidine 20 mg 12/28/18 21:00 01/03/19 09:47 Pepcid Tab* PO 20 mg BID [facility] Administration Protocol Guaifenesin 1,200 mg 12/28/18 21:00 01/03/19 09:48 Mucinex* PO 1,200 mg BID [facility] Administration Heparin Sodium (Porcine) 5,000 units 12/28/18 22:00 01/03/19 14:45 Heparin Vial(*) SUBCUT 5,000 units Q8HR [facility] Administration Heparin Sodium (Porcine) 5 ml 12/30/18 11:00 01/03/19 09:37 Heparin Flush Port (Ivad) FLUSH Not Given DAILY [facility] Protocol Hydroxyzine HCl 50 mg 12/28/18 21:00 01/02/19 20:42 Atarax Tab* PO 50 mg BEDTIME [facility] Administration Doxycycline Hyclate 100 mg/ 250 mls @ 250 mls/hr 12/28/18 20:00 01/03/19 09: 39 Sodium Chloride IVPB 01/03/19 23:59 250 mls/hr Q12H [facility] Administration Ceftriaxone Sodium 1 gm/ 50 mls @ 200 mls/hr 12/29/18 17:00 01/03/19 16:52 Sodium Chloride IVPB 01/03/19 23:59 200 mls/hr Q24H [facility] Administration Losartan Potassium 50 mg 12/29/18 09:00 01/03/19 09:47 Cozaar Tab* PO 50 mg QAM [facility] Administration Magnesium Oxide 400 mg 01/02/19 09:00 01/03/19 09:48 Magox 400 Tab* PO 400 mg BID [facility] Administration Mometasone Furoate/Formoterol Fumar 2 puff 01/01/19 12:00 01/03/19 08:36 Dulera 200/5 Mdi* INH 2 puff BID [facility] Administration Ondansetron HCl 4 mg 12/28/18 18:17 Zofran Inj* IV Q6H PRN NAUSEA Prednisone 40 mg 01/03/19 12:00 01/03/19 12:17 Deltasone Tab* PO 40 mg DAILY [facility] Administration Vital Signs Temp Pulse Resp BP Pulse Ox 97.5 F 86 20 146/68 94 01/03/19 16:03 01/03/19 16:03 01/03/19 16:03 01/03/19 16:03 01/03/19 16:03 O/E: Pt in NAD HEENT: PERRLA, No JVD Lungs: Diminished air entry b/l, scattered wheeze+ CVS: S1, S2+, regular Abd: Soft, BS+ Ext: Normal ROM Neuro: No focal deficits Skin: No rash Labs: No new labs I/R: 68 y o F with h/o COPD, chronic hypoxic respiratory failure on 2L at HS, and Lung CA 2015 s/p recurrence 2017with recent travel, presented with SOB x4 days, being treated for COPD exacerbation and PNA/bronchitis. Pt improving clinically, still has wheeze and has diminished air entry. Has become hypoxic with exertion Has cough, able to expectorate phlegm on prednisone 40mg Needing bronchodilators more often c/w flutter device Has small nodular lesions on CT, inflammatory versus recurrence of malignancy Will f/u with rpt CT to ensure resolution as out pt c/w bronchodilators OOB to chair, ambulate as tolerated Assess O2 requirement prior to d/c D/w Kajal Somers NP
[2019-01-03] MEDS: hydrOXYzine HCL TAB* 50 MG PO SCH (20:45)
[2019-01-04] MEDS: Heparin VIAL(*) 5000 UNITS/ML VIAL (FIVE THOUSAND) SUBCUT SCH (05:24)
[2019-01-04 06:13] LABS: Calcium 8.8 mg/dL (8.6-10.3); EGFR African American 91.8 (>60); EGFR Non-African American 75.9 (>60); Magnesium 1.9 mg/dL (1.9-2.7); Potassium 4.3 mmol/L (3.5-5.0)
[2019-01-04 07:04] LABS: Hematocrit 39 % (35-47); Hemoglobin 12.8 g/dl (12.0-16.0); Mean Corpuscular HGB Conc 33 g/dl (31-36); Mean Corpuscular Hemoglobin 28 pg (27-31); Mean Corpuscular Volume 85 fL (80-97); Mean Platelet Volume 7.4 fL (7.4-10.4); Platelet Count 404 10^3/ul (150-450); Red Blood Count 4.63 10^6/ul (4.00-5.40); Red Cell Distribution Width 14 % (10.5-15); White Blood Count 17.9 10^3/ul (3.5-10.8)
[2019-01-04 07:28] LABS: ABS Basophils 0 10^3/ul (0-0.2); ABS Eosinophils 0 10^3/ul (0-0.6); ABS Lymphocytes 3.2 10^3/ul (1.0-4.8); ABS Monocytes 1.1 10^3/ul (0-0.8); ABS Neutrophils 13.5 10^3/ul (1.5-7.7)
[2019-01-04 07:32] LABS: Lymphocytes % 13 %; Monocytes % 8 %; Neutrophil % 71 %; Variant Lymph % 7 % (0-6)
[2019-01-04 07:33] LABS: ABS Neutrophils 12.7 10^3/ul (1.5-7.7)
[2019-01-04 07:34] LABS: ABS Eosinophils 0.2 10^3/ul (0-0.6)
[2019-01-04] MEDS: guaiFENesin ER TAB 600 MG PO SCH (08:33)
[2019-01-04] MEDS: Conjugated Estrogens TAB* 0.625 MG TAB PO SCH (08:33)
[2019-01-04] MEDS: Cyanocobalamin TAB* 500 MCG PO SCH (08:34)
[2019-01-04] MEDS: Cetirizine* 10 MG TAB PO SCH (08:34)
[2019-01-04] MEDS: predniSONE TAB* 20 MG PO SCH (08:34)
[2019-01-04] MEDS: Magnesium Oxide TAB* 400 MG PO SCH (08:34)
[2019-01-04] MEDS: Famotidine TAB* 20 MG PO SCH (08:34)
[2019-01-04] MEDS: Losartan TAB* 25 MG PO SCH (08:34)
[2019-01-04] MEDS: Mometasone/Formoter 200/5 MDI INH SCH (08:41)
[2019-01-04 11:18] VITALS: BP 130/60
--- NOTE | 2019-01-05 01:17 | DS ---
CC: Dr. Alexei West; Dr. Daysi Joseph; Dr. Savannah Augustin * DISCHARGE SUMMARY: DATE OF ADMISSION: 12/28/18 DATE OF DISCHARGE: 01/04/19 PRIMARY CARE PROVIDER: Alexei West MD. MY ATTENDING WHILE IN THE HOSPITAL: Stiven Mccoy MD.* (DICTATED BY [facility]) OUTPATIENT ONCOLOGIST: Daysi Joseph MD. ADVERTISING SALES MANAGER: Savannah Augustin MD. PRIMARY DISCHARGE DIAGNOSES: 1. Chronic obstructive pulmonary disease exacerbation, likely community acquired pneumonia. 2. Acute hypoxic respiratory failure, resolved. SECONDARY DISCHARGE DIAGNOSES: 1. Non-small cell lung cancer, in remission. 2. Hypertension. STUDIES DONE WHILE IN THE HOSPITAL: Chest x-ray from 12/28/18 read as some mild obstructive lung disease, stable left paramediastinal upper lung zone probable postradiation fibrosis, new mild opacity of the left costophrenic angle , concerning for potential pneumonia given clinical contacts. Radiographic followup suggested after therapy to assess for resolution. Chest/thorax CTA from 12/28/18 read as nodules in the periphery of the lower lung lobe, appeared to be increase in size when compared to previous exam on , cannot totally exclude metastatic disease. In addition, there is a nodule/infiltrate in the left lower lobe, measuring 1.3 cm. This was not identified previously and may represent metastatic disease, inflammatory changes surrounding this lesion is not excluded. No evidence of pulmonary embolism. Echocardiogram read as: Left ventricle appears hyperdynamic with sigmoid septum , mild increase in LVOT velocity/turbulence. Estimated ejection fraction 60% to 65%. The aortic root leaflets are mildly thickened. There is trace to mild mitral regurgitation. Similar to 02/10/18 except the LV function appears to be hyperdynamic. MEDICATIONS AT DISCHARGE: 1. Conjugated estrogen 0.625 mg p.o. daily. 2. Vitamin B12 1000 mcg p.o. daily. 3. Combivent Respimat 1 puff inhalation q.i.d. as needed. 4. Albuterol HFA inhaler 2 puffs inhalation q.4 hours as needed. 5. Xyzal 5 mg p.o. b.i.d. 6. Hydroxyzine 50 mg p.o. at bedtime. 7. Fluticasone 2 puffs inhalation b.i.d. 8. Anoro Ellipta 6.25/25 one puff inhalation daily as scheduled. 9. Zantac 150 mg p.o. b.i.d. 10. Multivitamin 1 tab p.o. daily. 11. Magnesium oxide 500 mg p.o. daily. 12. Losartan 50 mg p.o. q.a.m. 13. Tylenol 650 mg p.o. q.6 hours as needed. 14. Ventolin inhaler 2.5 mg inhalation q.4 hours as needed. 15. Tessalon 100 mg p.o. b.i.d. as needed. 16. Guaifenesin 1200 mg p.o. b.i.d. x14 doses. 17. Prednisone 40 mg p.o. daily with taper. New medications at discharge: 1. Tylenol. 2. Albuterol. 3. Tessalon. 4. Guaifenesin. 5. Prednisone. HOSPITAL COURSE: This is a brief summary of the patient's presentation. For more details, please see the history and physical from this author on 12/28/18. In brief, the patient is a 68-year-old female with past medical history significant as above. Four days before her admission, the patient had significant dyspnea on exertion and shortness of breath at rest. The patient had a significantly productive cough with dark colored sputum. The patient never had COPD exacerbation in the past. The patient had studies as above concerning for community acquired pneumonia. The patient was admitted to the hospital and started on ceftriaxone and doxycycline as well as steroids. The patient had echocardiogram for concerning features for possible heart failure; however, this echocardiogram had no changes from previous exam. The patient initially improved, but then had a worsening in her respiratory status requiring higher doses of IV steroids. The patient was seen in consultation by Dr. Brodie Neff of Hematology/Oncology due to findings on the patient's CT, who recommended a followup CT scan with treatment to be based on the patient's clinical course. The patient was seen in consultation by Dr. Savannah Augustin who recommended no change to management. The patient improved over the next several days. The patient had no pertinent laboratory abnormalities except for leukocytosis, which was expected from high-dose steroid therapy. The patient was able to be weaned off her oxygen, needing no oxygen at rest; however, the patient was unable to ambulate without significant desaturation even on . The patient has a concentrator at home from her previous lung cancer treatment and was stable and amenable for discharge on 01/04/19. PHYSICAL EXAMINATION ON THE DAY OF DISCHARGE: General: The patient is a 68- year- old female who appears stated age and sitting comfortably in bed, in no acute distress. Vital Signs: At the time of evaluation, temperature 97.8, pulse rate 85, oxygen saturation 97% on room air, blood pressure 130/60. HEENT : Head normocephalic, atraumatic. Sclerae anicteric. No conjunctival injection. Nasal mucosa moist. Oral mucosa moist. No pharyngeal erythema, discharge, or exudate. Neck: Supple, nontender. No lymphadenopathy. No carotid bruits auscultated. No JVD. Cardiac: Regular rate and rhythm. No clicks, murmurs, gallops, or rubs. Pulses are 2+ in the bilateral dorsalis pedis , posterior tibialis, and radial areas. Respiratory: Diminished throughout. No adventitious lung sounds. Abdomen: Soft, nontender, nondistended. Bowel sounds present, normoactive in all 4 quadrants. No hepatosplenomegaly. No abdominal bruits auscultated. No hepatojugular reflux. Genitourinary: No suprapubic or CVA tenderness. Skin: Clean, dry, and intact. No rash. Neuro: Cranial nerves II through XII intact. No focal deficits. Alert and oriented x3. Psychiatric: Pleasant and cooperative. DISCHARGE PLAN: The patient will be discharged to home. The patient has a portable concentrator and a heavier standing concentrator. The patient will use these as needed for shortness of breath particularly with ambulation. The patient has been prescribed a nebulizer for when she feels if her COPD is being exacerbated. The patient will continue with her as needed inhalers and her inhaled corticosteroid as well as long-acting LAMA/LABA antagonist therapy. The patient should follow up with her primary care provider within 1 week for general medical management and to ensure continued improvement in her clinical status. May need followup with Dr. Savannah Aguustin as per routine for monitoring of her COPD and optimization of her treatment. The patient will have a prednisone taper for 10 more days. The patient is to follow up with her die cutter apprentice/oncologist as well as her radiation oncologist to schedule a repeat CT examination of her chest to assess for worsening of her non-small cell lung cancer. The patient finished antibiotics while in the hospital. The patient should return to the hospital for chest pain, severe shortness of breath , coughing up blood, or other alarming symptoms. The patient should engage in activity as tolerated. The patient should have a heart healthy diet, caffein okay. TIME SPENT: Approximately 60 minutes was spent on the discharge of this patient , 30 of which was spent [id number] with the patient obtaining history and physical and discussing treatment plan. [facility] [facility] [id number]/[facility] #: [id number] JACQUIE
== END 2019-01-04 12:35 | disposition home or self-care (01) | DRG 871 ==
LOC: ED 09:38 → MED 18:17
PROVIDERS: ADMIT Internal Medicine; ATTEND Internal Medicine
DX: A41.9 Sepsis, unspecified organism (principal); J18.1 Lobar pneumonia, unspecified organism; J96.21 Acute and chronic respiratory failure with hypoxia; C34.32 Malignant neoplasm of lower lobe, left bronchus or lung; J43.9 Emphysema, unspecified; I10 Essential (primary) hypertension; I34.0 Nonrheumatic mitral (valve) insufficiency; Z72.89 Other problems related to lifestyle; Z88.8 Allergy status to other drugs, medicaments and biological substances; Z92.3 Personal history of irradiation; Z92.21 Personal history of antineoplastic chemotherapy; Z87.891 Personal history of nicotine dependence; Z90.710 Acquired absence of both cervix and uterus; Z82.49 Family history of ischemic heart disease and other diseases of the circulatory system; Z83.3 Family history of diabetes mellitus; Z80.3 Family history of malignant neoplasm of breast; Z80.0 Family history of malignant neoplasm of digestive organs; Z80.8 Family history of malignant neoplasm of other organs or systems; Z79.51 Long term (current) use of inhaled steroids; Z79.52 Long term (current) use of systemic steroids; Z79.890 Hormone replacement therapy
CPT/HCPCS: 36415; 71046; 71275; 80048; 80053; 81003; 82270; 82550; 82553; 82803; 83605; 83735; 83880; 84484; 85025; 85060; 85379; 85610; 85730; 86140; 87040; 87070; 87205; 87899; 93005; 93306; 94640; 99284; A9270-GY; J0456; J0696; J1642; J1644; J2920; J2930; J7512; Q9967

== ENCOUNTER 2019-05-05 11:59 | Emergency (ER) | payer MEDICARE ==
[2019-05-05 12:22] VITALS: BP 158/64
--- NOTE | 2019-05-05 13:18 | UC ---
Abdominal Pain Female HPI - HPI Summary HPI Summary: Pt reports lower left abd pain, cramps, diarrhea for about a week. Eating more than moving out, vomited this morning. Crampming continues after taking a laxative and cleaning out her colon - History of Current Complaint Chief Complaint: UCAbdominalPain Stated Complaint: STOMACH PAIN/ Time Seen by Provider: 05/05/19 13:07 Hx Obtained From: Patient Hx Last Menstrual Period: "years ago." s/p hyst ?: No Onset/Duration: Sudden Onset, Lasting Days - 7 Timing: Constant Severity Initially: Moderate Severity Currently: Moderate Pain Intensity: 6 Location: Discrete At: LLQ Radiates: No Character: Cramping Associated Signs and Symptoms: Positive: Constipation, Other: - took a laxative Allergies/Adverse Reactions: Allergies Allergy/AdvReac Type Severity Reaction Status Date / Time fluticasone Allergy See Comment Verified 05/05/19 12:23 [From Advair Diskus] salmeterol Allergy See Comment Verified 05/05/19 12:23 [From Advair Diskus] Home Medications: Home Medications Fluticasone/Umeclidin/Vilanter [Trelegy Ellipta 100-62.5-25] 1 puff INH DAILY [History Confirmed 05/05/19] Latanoprost/Pf [Latanoprost 0.005% Eye Drop] 1 drop OP BEDTIME 05/05/19 [ History Confirmed 05/05/19] PMH/Surg Hx/FS Hx/Imm Hx Previously Healthy: Yes Other History Of: Negative For: HIV, Hepatitis B, Hepatitis C, Anticoagulant Therapy - Surgical History Surgical History: Yes Surgery Procedure, Year, and Place: HYSTERECTOMY. POWER PORT - Family History Known Family History: Positive: Hypertension, Diabetes Negative: Cardiac Disease, Renal Disease - Social History Alcohol Use: Rare Substance Use Type: None Smoking Status (MU): Former Smoker Type: Cigarettes - Immunization History Most Recent Influenza Vaccination: 06/2018 Most Recent Pneumonia Vaccination: 06/2018 Review of Systems All Other Systems Reviewed And Are Negative: Yes Gastrointestinal: Positive: Abdominal Pain Is Patient Immunocompromised?: No Physical Exam Triage Information Reviewed: Yes Appearance: Well-Appearing, Well-Nourished, Pain Distress Vital Signs: Initial Vital Signs Temp 98.9 F 05/05/19 12:17 Pulse 64 05/05/19 12:17 Resp 16 05/05/19 12:17 BP 158/64 05/05/19 12:17 Pulse Ox 96 05/05/19 12:17 Vital Signs Reviewed: Yes Eye Exam: Normal ENT Exam: Normal Dental Exam: Normal Neck exam: Normal Respiratory Exam: Normal Respiratory: Positive: Chest non-tender, Lungs clear, Normal breath sounds Cardiovascular Exam: Normal Cardiovascular: Positive: RRR, No Murmur, Pulses Normal Abdominal Exam: Normal Abdomen Description: Positive: No Organomegaly, Soft, CVA Tenderness (R) - neg, CVA Tenderness (L) - neg, Other: - LLQ tenderness Bowel Sounds: Positive: Present Musculoskeletal Exam: Normal Neurological Exam: Normal Psychological Exam: Normal Skin Exam: Normal Abd Pain Female Course/Dx - Course Course Of Treatment: hx obtained, exam performed ,meds reviewed, treaed for cramping and constipation - Differential Dx/Diagnosis Differential Diagnosis: Bowel Obstruction, Constipation, Diverticulitis, Irritable Bowel Syndrome Provider Diagnosis: IBS (irritable bowel syndrome) Discharge - Sign-Out/Discharge Documenting (check all that apply): Patient Departure All imaging exams completed and their final reports reviewed: No Studies - Discharge Plan Condition: Stable Disposition: HOME Prescriptions: Dicyclomine CAP* [Bentyl CAP*] 10 mg PO TID PRN #[id number] cap PRN Reason: Pain Patient Education Materials: Irritable Bowel Syndrome (ED), High Fiber Diet (ED ) Referrals: Alexei West MD [Primary Care Provider] - Additional Instructions: 1. take the medication as needed. 2. Increase fluid intake and increase movment. 3. Continue with the fiber and follow up if not improving. - Billing Disposition and Condition Condition: STABLE Disposition: Home
== END 2019-05-05 13:45 | disposition home or self-care (01) ==
LOC: UCEAST 11:59
DX: K58.9 Irritable bowel syndrome, unspecified (principal); Z87.891 Personal history of nicotine dependence
CPT/HCPCS: 99212; G0463

== ENCOUNTER 2019-10-06 14:53 | Emergency (ER) | payer MEDICARE ==
--- OUTSIDE RECORDS SUMMARY | 2019-10-06 14:59 | XMS REPORT | Continuity of Care Document ---
:1950 External Reference #:[id number] Author Name Aleksandar Ocampo M.D. Address [address] [place] [id number] Care Team Providers Name Role Phone Alexei West M.D. Care Team Information Newspaper Peddler [phone] Problems Active Problems Provider Date Urticaria Aleksandar Ocampo M.D. Onset: 08/10/2019 Social History Type Date Description Comments Sex Unknown ETOH Use Rarely consumes alcohol Tobacco Use Start: Unknown End: Unknown Patient is a former smoker Recreational Drug Use Never Used Drugs Allergies, Adverse Reactions, Alerts Active Allergies Reaction Severity Comments Date Advair looses voice 08/10/2019 Medications Active Medications SIG Qnty Indications Ordering Provider Date Montelukast Sodium 1 by mouth 30tabs L50.9 Aleksandar Ocampo M.D. 08/10/2019 10mg every day Tablets Julia Allergy 1 by mouth 30tabs L50.9 Aleksandar Ocampo M.D. 08/10/2019 180mg Tablets every day Trelegy EllipSavannah Michaud, 100-62.5-25mcg/Inh Aerosol Latanoprost Unknown 0.005% Solution Levocetirizine Baldo Leslie, Dihydrochloride 5mg Tablets Losartan Potassium Alexei West, 50mg M.D. Tablets Premarin Alexei West, 0.625mg Tablets M.D. Albuterol Sulfate Unknown (2.5mg/3ML) 0.083% Nebulizer Magnesium Oxide Unknown (Antacid) 500mg Capsules Vitamin B12 twice a day Unknown 1000mcg Tablets ER Multivitamin Adult Unknown Chewtabs Hyoscyamine Sulfate Unknown 0.125mg Tablets Immunizations Description No Information Available Vital Signs Date Vital Result Comment 08/10/2019 10:59am Height 64 inches 5'4" Weight 164.00 lb Weight 74.390 kg Respiratory Rate 16 /min Heart Rate 79 /min O2 % BldC Oximetry 96 % BP Systolic 147 mmHg BP Diastolic 71 mmHg BMI (Body Mass Index) 28.1 kg/m2 Results Description No Information Available Procedures Description No Information Available Medical Devices Description No Information Available Encounters Type Date Location Provider Dx Diagnosis Office Visit 08/10/2019 [place] Aleksandar Ocampo M.D. L50.9 Urticaria, unspecified 11:00a Assessments Date Code Description Provider 08/10/2019 L50.9 Urticaria, unspecified Aleksandra Ocampo M.D. Plan of Treatment Future Appointment(s):09/24/2019 11:20 am - [id number] - Aleksandar Ocampo M.D.L50.9 Urticaria, unspecifiedNew Medication: Montelukast Sodium 10 mg - 1 by mouth every dayAllegra Allergy 180 mg - 1 by mouth every dayNew Labs:Rast Cat Dander E1, Ordered: 08/10/19Rast Dog Dander E2 , Ordered: 08/10/19Rast D Farinae, Ordered: 08/10/19Rast Dust Mite Pteronyssinus , Ordered: 08/10/19Rast Common Silver Birch T3, Ordered: 08/10/19Rast [place] (White ) T7, Ordered: 08/10/19Rast Maple [place] T1, Ordered: 08/10/19Rast White [place] T15, Ordered: 08/10/19Rast [place] ([place]) T14, Ordered: 08/10/19Rast Elm Burkinan T8, Ordered: 08/10/19Rast [place] T16, Ordered: 08/10/19Rast Juan Delcid T2, Ordered: 08/10/19Rast Beech Burkinan T5, Ordered: 08/10/19Rast [place] Black T10, Ordered: 08/10/19Rast P[place] Tree T22, Ordered: 08/10/19Rast [place] Am,T11-Not Maple, Ordered: 08/10/19Rast [place] T12, Ordered: Rast [place] Grass G6, Ordered: 08/10/19Rast Or[place] Grass G3, Ordered: Rast Ragweed Short (Common), Ordered: 08/10/19Rast [place] Elder Rough, Ordered : 08/10/19Rast Common Pigweed, Ordered: 08/10/19Rast Cocklebur, Ordered: Rast [place] w10, Ordered: 08/10/19Rast Aspergillus Fumigatus, Ordered : 08/10/19Rast Cladosporium/Horm Herbaru, Ordered: 08/10/19Rast Helminthosporium Halodes, Ordered: 08/10/19Rast Penicillium Notatum, Ordered: Tryptase, Serum, Ordered: 08/10/19Follow up:6-8 weeks sooner if neededRecommendations:we had a very detailed discussion about the chronic hives to continue with Levocetrizine 1 tab in the morning and 1 at night add Julia 180 ,1 tab po once a day(to double it if no change in a week) Montelukast 10 mg 1 tab po once a day(keep it once a day) AVOID TAKING IBUPROFEN STOP THE RANITIDINE will consider Xolair depending how she does will do some testing ? serum IgE Functional Status Description No Information Available Mental Status Description No Information Available Referrals Description No Information Available
--- OUTSIDE RECORDS SUMMARY | 2019-10-06 14:59 | XMS REPORT | Continuity of Care Document ---
:1950 External Reference #:[id number] Author Name Alexei West M.D. 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 Onset: 07/11/2003 Tobacco user Onset: 07/11/2003 Female climacteric state Alexei West M.D. Onset: 04/12/2005 Localized, primary osteoarthritis of the hand Alexei West M.D. Onset: Idiopathic urticaria Alexei West M.D. Onset: 05/03/2016 Essential hypertension Alexei West M.D. Onset: 05/03/2016 Malignant neoplasm of upper lobe, bronchus or Alexei West M.D. Onset: lung Chronic obstructive pulmonary disease with Alexei West M.D. Onset: 01/10 acute lower respiratory infection Social History Type Date Description Comments Sex Unknown Tobacco Use Start: Unknown End: Former Cigarette Smoker had smoked 1 1/2 Unknown packs a day for 30 years; started Chantix 02/16/07; Quit late February. Started smoking again after 's summer 2009, quit again 09/02 using Chantix. Started smoking again after D/C Chantix January 2011. Chantix restarted 05/03, quit again early May 2011, stopped Chantix after ~2mo. Started smoking again ~12/06, started Chantix again 02/14/13, stopped fall (after quitting) Smoking Status Reviewed: 01/23/19 Former Cigarette Smoker had smoked 1 1/2 packs a day for 30 years; started Chantix 02/16/07; Quit late February. Started smoking again after 's summer 2009, quit again 09/02 using Chantix. Started smoking again after D/C Chantix January 2011. Chantix restarted 05/03, quit again early May 2011, stopped Chantix after ~2mo. Started smoking again ~12/06, started Chantix again 02/14/13, stopped fall (after quitting) ETOH Use Rare Alcohol Use Recreational Drug Use Denies Drug Use Tobacco Use Start: Unknown End: Patient is a former Unknown smoker Allergies, Adverse Reactions, Alerts Active Allergies Reaction Severity Comments Date Advair Diskus 03/24/2011 Inactive Allergies NKDA 07/11/2003 Medications Active Medications SIG Qnty Indications Ordering Date Provider Montelukast Sodium one po daily Unknown 09/08/2019 10mg Tablets Hydroxyzine HCL 2 tabs po hs Unknown 08/28/2019 25mg Tablets Hyoscyamine Sulfate take 2 tablets 60tabs K58.2 Silcoff, 05/16/2019 0.125mg by mouth upto Carl Linda Tablets every 6 hours as needed for belly pain; if not helpful may increase to 3 tablets/dose Tessalon Perles take 1 capsule Unknown 01/04/2019 100mg by mouth 2 times Capsules per day as needed for cough Albuterol Sulfate use 1 vial every Unknown 01/04/2019 4 hrs prn to (2.5mg/3ML) 0.083% help breathing Nebulizer Levocetirizine 1 by mouth twice Unknown 11/13/2018 Dihydrochloride a day 5mg Tablets Multivitamin Women 65+ one po daily Gunnar Youssef 02/19/2018 65+ Carl Williamson Tablets Oxygen NC o2 via nc, 2lpm Silcoff, 08/31/2016 overnight and Carl Linda 3lpm with activity Magnesium Oxide 1 po qd Silcoff, 08/10/2016 500mg Carl Linda Tablets Losartan Potassium take 1 tablet by 90tabs I10 Silcoff, 07/28/2016 50mg mouth every Carl Linda Tablets morning for high blood pressure Premarin take 1 tablet by 90tabs N95.1 Silcoff, 05/31/2011 0.625mg Tablets mouth once daily Carl Linda Vitamin B-12 1 daily 100tabs 266.2 Brett, 02/27/2009 1000mcg (sublingually) Carl Linda Tablets Sub Trelegy Ellipta Unknown 100-62.5-25mcg/Inh Aerosol Latanoprost Unknown 0.005% Solution History Medications Linzess 1 cap by mouth daily 30caps K58.1 Alexei West, 05/10/2019 - 145mcg for ibs with MCodie 05/16/2019 Capsules constipation Dicyclomine HCL Unknown 05/05/2019 - 05/10/2019 10mg Capsules Immunizations CPT Code Status Date Vaccine Lot # [id number] Given 08/04/2018 Influenza Vaccine, Inactivated, Subunit, [id number] Adjuvanted, For Intrmusc 41399 Given 05/09/2018 Pneumococcal Immunization [id number] 84488 Given 08/11/2017 Flu, Split Virus 3Yrs 05168 Given 05/04/2017 Prevnar 13 [id number] 57546 Given 07/05/2016 Influenza Virus Vaccine, Quadrivalent, Split, [id number] Preservative Free 81839 Given 09/27/2014 Influenza Virus Vaccine, Quadrivalent, Split, [id number] Preservative Free 94721 Given 03/28/2012 Zostavax [id number] 99907 Given 06/25/2011 Flu, Split Virus 3Yrs 73056 Given 08/07/2007 Flu, Split Virus 3Yrs [id number] 71448 Given 08/17/2006 Flu, Split Virus 3Yrs 81304 Given 02/15/2006 Td Immunization [id number] 82467 Given 08/11/2005 Flu, Split Virus 3Yrs 10868 Given 11/30/2000 Pneumococcal Immunization [id number] Refused 05/09/2018 Shingrix Zoster (Shingles) Vaccine (HZV) Recomb,Subnit,Adjuvanted [id number] Refused 05/03/2016 Adacel or Boostrix, TDaP Vital Signs Date Vital Result Comment 09/18/2019 4:33pm BP Systolic 142 mmHg BP Diastolic 60 mmHg Height 63.5 inches 5'3.50" w/shoes Weight 164.00 lb w/shoes BMI (Body Mass Index) 28.6 kg/m2 05/16/2019 2:35pm BP Systolic 144 mmHg BP Diastolic 58 mmHg Height 63 inches 5'3" Weight 165.00 lb BMI (Body Mass Index) 29.2 kg/m2 Results Test Acquired Date Facility Test Result H/L Range Note Comp Metabolic 05/09/2019 [facility] Sodium 136 mmol/L Normal 135- 145 Panel [phone] Potassium 4.8 mmol/L Normal 3.5-5.0 Chloride 101 mmol/L Normal 101-111 Co2 Carbon Dioxide 28 mmol/L Normal 22-32 Anion Gap 7 mmol/L Normal 2-11 Glucose 122 mg/dL High 70-100 Blood Urea Nitrogen 16 mg/dL Normal 6-24 Creatinine 0.80 mg/dL Normal 0.51-0.95 BUN/Creatinine Ratio 20.0 Normal 8-20 Calcium 9.2 mg/dL Normal 8.6-10.3 Total Protein 6.1 g/dL Low 6.4-8.9 Albumin 3.5 g/dL Normal 3.2-5.2 Globulin 2.6 g/dL Normal 2-4 Albumin/Globulin Ratio 1.3 Normal 1-3 Total Bilirubin 0.30 mg/dL Normal 0.2-1.0 Alkaline Phosphatase 49 U/L Normal 34-104 Alt 7 U/L Normal 7-52 Ast 11 U/L Low 13-39 Egfr Non- 71.5 >60 Egfr 86.6 >60 1 Laboratory test 05/09/2019 [facility] C Reactive 73.54 mg/L High < 8.01 finding [phone] Protein Erythrocyte Sed Rate 19 mm/Hr Normal 0-29 CBC Auto Diff 05/09/2019 [facility] White Blood 11.4 10^3/uL High 3.5 -10.8 [phone] Count Red Blood Count 4.02 10^6/uL Normal 3.70-4.87 Hemoglobin 11.3 g/dL Low 12.0-16.0 Hematocrit 34 % Low 35-47 Mean Corpuscular Volume 85 fL Normal 80-97 Mean Corpuscular Hemoglobin 28 pg Normal 27-31 Mean Corpuscular HGB Conc 33 g/dL Normal 31-36 Red Cell Distribution Width 13 % Normal 10-15 Platelet Count 337 10^3/uL Normal 150-450 Mean Platelet Volume 7.9 fL Normal 7.4-10.4 Abs Neutrophils 10.0 10^3/uL High 1.5-7.7 Abs Lymphocytes 0.7 10^3/uL Low 1.0-4.8 Abs Monocytes 0.4 10^3/uL Normal 0-0.8 Abs Eosinophils 0.2 10^3/uL Normal 0-0.6 Abs Basophils 0.0 10^3/uL Normal 0-0.2 Abs Nucleated RBC 0.0 10^3/uL Granulocyte % 88.2 % Lymphocyte % 6.0 % Monocyte % 3.8 % Eosinophil % 1.7 % Basophil % 0.3 % Nucleated Red Blood Cells % 0.0 1 Because ethnic data is not always readily available, this report includes an eGFR for both -Americans and non- Americans. The National Kidney Disease Education Program (NKDEP) does not endorse the use of the MDRD equation for patients that are not between the ages of 18 and 70, are , have extremes of body size, muscle mass, or nutritional status, or are non- or non-. According to the National Kidney Foundation, irrespective of diagnosis, the stage of the disease is based on the level of kidney function: Stage Description GFR(mL/min/1.73 m(2)) 1 Kidney damage with normal or decreased GFR 90 2 Kidney damage with mild decrease in GFR 60-89 3 Moderate decrease in GFR 30-59 4 Severe decrease in GFR 15-29 5 Kidney failure <15 (or dialysis) Procedures Date Code Description Status 10/30/2018 [id number] Mammogram Completed 05/02/2017 [id number] Colonoscopy Completed Medical Devices Description No Information Available Encounters Type Date Location Provider Dx Diagnosis Office Visit 09/18/2019 Main Office Alexei West M70.61 Trochanteric 4:30p Carl bursitis, right hip M70.62 Trochanteric bursitis, left hip Z68.28 Body mass index (BMI) 28.0-28.9, adult Office Visit 05/16/2019 2:00p Main Office Alexei West Z00.01 Encounter for Carl general adult medical exam w abnormal findings K58.2 Mixed irritable bowel syndrome R10.814 Left lower quadrant abdominal tenderness K21.9 Gastro-esophageal reflux disease without esophagitis L50.1 Idiopathic urticaria J43.9 Emphysema, unspecified C34.12 Malignant neoplasm of upper lobe, left bronchus or lung B35.1 Tinea unguium I10 Essential (primary) hypertension Z68.29 Body mass index (BMI) 29.0-29.9, adult Office Visit 05/10/2019 1:55p Main Office Nataliya Sousa, K58.1 Irritable bowel PA syndrome with constipation Assessments Date Code Description Provider 09/18/2019 M70.61 Trochanteric bursitis, right hip Alexei West M.D. 09/18/2019 M70.62 Trochanteric bursitis, left hip Alexei West M.D. 09/18/2019 Z68.28 Body mass index (BMI) 28.0-28.9, adult Alexei West M.D. 05/16/2019 Z00.01 Encounter for general adult medical Alexei West M.D. examination with abnormal findings 05/16/2019 K58.2 Mixed irritable bowel syndrome Alexei West M.D. 05/16/2019 R10.814 Left lower quadrant abdominal tenderness Alexei West M.D. 05/16/2019 K21.9 Gastro-esophageal reflux disease without Alexei West M.D. esophagitis 05/16/2019 L50.1 Idiopathic urticaria Alexei West M.D. 05/16/2019 J43.9 Emphysema, unspecified Alexei West M.D. 05/16/2019 C34.12 Malignant neoplasm of upper lobe, left Alexei West M.D. bronchus or lung 05/16/2019 B35.1 Tinea unguium Alexei West M.D. 05/16/2019 I10 Essential (primary) hypertension Alexei West M.D. 05/16/2019 Z68.29 Body mass index (BMI) 29.0-29.9, adult Alexei West M.D. 05/10/2019 K58.1 Irritable bowel syndrome with constipation Nataliya Sousa PA Plan of Treatment Future Appointment(s):05/20/2020 10:30 am - Alexei West M.D. at Main [facility]av0805/10/2019 - Nataliya Sousa, PAK58.1 Irritable bowel syndrome with constipationNew Medication:Linzess 145 mcg - 1 cap by mouth daily for ibs with constipationComments:Change dicyclomine to linzess. Work on improving diet, avoiding trigger foods. Recheck if sx not improving. Functional Status Description No Information Available Mental Status Description No Information Available Referrals Refer to Reason for Referral Status Appt Date [facility] chronic urticaria Assume Management Closed this Problem Only [address] [address], [place] [address] [phone]
--- OUTSIDE RECORDS SUMMARY | 2019-10-06 14:59 | XMS REPORT | Continuity of Care Document ---
:1950 External Reference #:[id number] Author Name CARLY Cunningham Address [address] [place] [address] Care Team Providers Name Role Phone Alexei West M.D. 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 bedtime as needed Montelukast Sodium 1 by mouth 30tabs L50.9 Aleksandar Ocampo, 08/10/2019 10mg every day M.D. Tablets Julia Allergy 1 by mouth 30tabs L50.9 Aleksandar Ocampo, 08/10/2019 180mg Tablets every day M.D. Trelegy Ellipta CharliSavannah reynaga, 100-62.5-25mcg/Inh Aerosol Latanoprost Unknown 0.005% Solution Levocetirizine [...] Available Vital Signs Date Vital Result Comment 10/01/2019 10:30am Height 64 inches 5'4" Weight 165.00 lb Weight 74.844 kg Respiratory Rate 16 /min Heart Rate 63 /min O2 % BldC Oximetry 94 % BP Systolic 151 mmHg BP Diastolic 75 mmHg BMI (Body Mass Index) 28.3 kg/m2 08/10/2019 10:59am Height 64 inches 5'4" Weight 164.00 lb Weight 74.390 kg Respiratory Rate 16 /min Heart Rate 79 /min O2 % BldC Oximetry 96 % BP Systolic 147 mmHg BP Diastolic 71 mmHg BMI (Body Mass Index) 28.1 kg/m2 Results Test Acquired Date Facility Test Result H/L Range Note Laboratory test 08/20/2019 [facility] Cat Epithelium <0.35 kU/L [address] [place] [address] [phone] Dog Dander Allergen IgE <0.35 kU/L 2 Dermatophagoides farinae IgE <0.35 kU/L 3 Dermatophagoides pteronyssinus <0.35 kU/L 4 Silver Birch IgE <0.35 kU/L 5 [place] Allergen IgE <0.35 kU/L 6 [place] Maple IgE <0.35 kU/L 7 [place] Allergen IgE <0.35 kU/L 8 [place] Allergen IgE <0.35 kU/L 9 Elm Tree Allergen IgE <0.35 kU/L 10 [place] Tree Allergen IgE <0.35 kU/L 11 [place] Juan Allergen IgE <0.35 kU/L 12 [place] Beech Tree IgE <0.35 kU/L 13 Rast [place] Black T10 <pending> Rast Pecan/[place] Tree T22 <pending> Rast [place] Am,T11-Not Maple <pending> [place] Tree Allergen IgE <0.35 kU/L 14 [place] Grass Allergen IgE <0.35 kU/L 15 [place] Grass Allergen IgE <0.35 kU/L 16 Common Ragweed (Short) Allerge <0.35 kU/L 17 [place] Elder Allergen IgE <0.35 kU/L 18 Rough Pigweed Allergen IgE <0.35 kU/L 19 [place] Allergen IgE <0.35 kU/L 20 Rast [place] w10 <pending> Aspergillus Fumigatus IgE <0.35 kU/L 21 Cladosporium herbarum IgE <0.35 kU/L 22 Helminthosporium halodes IgE <0.35 kU/L 23 Penicillium notatum Allerg IgE <0.35 kU/L 24 Tryptase, Serum 08/20/2019 [facility] Tryptase 4.7 ng/mL < 11.[address] [place] [address] [phone] Laboratory test 08/20/2019 [facility] Miscellaneous Test See Comment [address] [place] [address] [phone] Rast Walnuts <0.35 kU/L 27 White [place] Tree Allerg IgE <0.35 kU/L 28 Kirk[place] Quarter Allergen IgE <0.35 kU/L 29 [place] Tree Allergen IgE <0.35 kU/L 30 1 Class 0 (Negative <0.35) Test Performed by: [place] [address] Printing Plate Setter: Gunnar Link M.D. Ph.D.; CLIA# [id number] 2 Class 0 (Negative <0.35) Test Performed by: [place] [address] Printing Plate Setter: Gunnar Link M.D. Ph.D.; CLIA# [id number] 3 Class 0 (Negative <0.35) Test Performed by: [place] [address] Printing Plate Setter: Gunnar Link M.D. Ph.D.; CLIA# [id number] 4 Class 0 (Negative <0.35) Test Performed by: [place] [address] Printing Plate Setter: Gunnar Link M.D. Ph.D.; CLIA# [id number] 5 Class 0 (Negative <0.35) Test Performed by: [place] [address] Printing Plate Setter: Gunnar Link M.D. Ph.D.; CLIA# [id number] 6 Class 0 (Negative <0.35) Test Performed by: [place] [address] Printing Plate Setter: Gunnar Link M.D. Ph.D.; CLIA# [id number] 7 Class 0 (Negative <0.35) Test Performed by: [place] [address] Printing Plate Setter: Gunnar Link M.D. Ph.D.; CLIA# [id number] 8 Class 0 (Negative <0.35) Test Performed by: [place] [address] Printing Plate Setter: Gunnar Link M.D. Ph.D.; CLIA# [id number] 9 Class 0 (Negative <0.35) Test Performed by: [place] [address] Printing Plate Setter: Gunnar Link M.D. Ph.D.; CLIA# [id number] 10 Class 0 (Negative <0.35) Test Performed by: [place] [address] Printing Plate Setter: Gunnar Link M.D. Ph.D.; CLIA# [id number] 11 Class 0 (Negative <0.35) Test Performed by: [place] [address] Printing Plate Setter: Gunnar Link M.D. Ph.D.; CLIA# [id number] 12 Class 0 (Negative <0.35) Test Performed by: [place] [address] Printing Plate Setter: Gunnar Link M.D. Ph.D.; CLIA# [id number] 13 Class 0 (Negative <0.35) Test Performed by: [place] [address] Printing Plate Setter: Gunnar Link M.D. Ph.D.; CLIA# [id number] 14 Class 0 (Negative <0.35) Test Performed by: [place] [address] Printing Plate Setter: Gunnar Link M.D. Ph.D.; CLIA# [id number] 15 Class 0 (Negative <0.35) Test Performed by: [place] [address] Printing Plate Setter: Gunnar Link M.D. Ph.D.; CLIA# [id number] 16 Class 0 (Negative <0.35) Test Performed by: [place] [address] Printing Plate Setter: Gunnar Link M.D. Ph.D.; CLIA# [id number] 17 Class 0 (Negative <0.35) Test Performed by: [place] [address] Printing Plate Setter: Gunnar Link M.D. Ph.D.; CLIA# [id number] 18 Class 0 (Negative <0.35) Test Performed by: [place] [address] Printing Plate Setter: Gunnar Link M.D. Ph.D.; CLIA# [id number] 19 Class 0 (Negative <0.35) Test Performed by: [place] [address] Printing Plate Setter: Gunnar Link M.D. Ph.D.; CLIA# [id number] 20 Class 0 (Negative <0.35) Test Performed by: [place] [address] Printing Plate Setter: Gunnar Link M.D. Ph.D.; CLIA# [id number] 21 Class 0 (Negative <0.35) Test Performed by: [place] [address] Printing Plate Setter: Gunnar Link M.D. Ph.D.; CLIA# [id number] 22 Class 0 (Negative <0.35) Test Performed by: [place] [address] Printing Plate Setter: Gunnar Link M.D. Ph.D.; CLIA# [id number] 23 Class 0 (Negative <0.35) Test Performed by: [place] [address] Printing Plate Setter: Gunnar Link M.D. Ph.D.; CLIA# [id number] 24 Class 0 (Negative <0.35) Test Performed by: [place] [address] Printing Plate Setter: Gunnar Link M.D. Ph.D.; CLIA# [id number] 25 Test Performed by: [place] [address] Printing Plate Setter: Gunnar Link M.D. Ph.D.; CLIA# [id number] 26 Test Result Flag Unit RefValue Marisela Higginskory, IgE <0.35 kU/L Class 0 (Negative <0.35) Test Performed by: [place] [address] Printing Plate Setter: Gunnar Link M.D. Ph.D.; CLIA# [id number] 27 Class 0 (Negative <0.35) Test Performed by: [place] [address] Printing Plate Setter: Gunnar Link M.D. Ph.D.; CLIA# [id number] 28 Class 0 (Negative <0.35) Test Performed by: [place] [address] Printing Plate Setter: Gunnar Link M.D. Ph.D.; CLIA# [id number] 29 Class 0 (Negative <0.35) Test Performed by: [place] [address] Printing Plate Setter: Gunnar Link M.D. Ph.D.; CLIA# [id number] 30 Class 0 (Negative <0.35) Test Performed by: [facility] [address] [place] [address] Printing Plate Setter: Gunnar Link M.D. Ph.D.; CLIA# [id number] Procedures Description No Information Available Medical Devices Description No Information Available Encounters Type Date Location Provider Dx Diagnosis Office Visit 08/10/2019 Daniella Ocampo M.D. L50.9 Urticaria, unspecified 11:00a Assessments Date Code Description Provider 10/01/2019 L50.9 Urticaria, unspecified CARLY Cunningham 08/10/2019 L50.9 Urticaria, unspecified Aleksnadar Ocampo M.D. Plan of Treatment Future Appointment(s):04/03/2020 1:20 pm - CARLY Cunningham at [facility]7506/2019 - TRENT Cunningham-CL50.9 Urticaria, unspecifiedFollow up:6 monthsRecommendations:Continue all medications as prescribed.Refrain from wearing perfumes/scented colognes while visitingour office. Continue the Julia twice a day Continue the Hydroxyzine 2 at night Continue the montelukast 1 daily Functional Status Description No Information Available Mental Status Description No Information Available Referrals Description No Information Available
[2019-10-06 15:08] VITALS: BP 150/72
[2019-10-06 15:37] LABS: Influenza A Molecular NEGATIVE (Negative); Influenza B Molecular NEGATIVE (Negative)
--- NOTE | 2019-10-06 16:29 | UC ---
Respiratory Complaint HPI - HPI Summary HPI Summary: yesterday while shopping she got SOB and last night had a fever--is concerned she may have the flu or pneumonia---she did have a flu vaccine 1 month ago---is O2 dependant at night and prn during the day---history of lung cancer but is cancer free now--some cough no sputum - History of Current Complaint Chief Complaint: UCGeneralIllness Stated Complaint: aches, FEVER, AND CHEST CONGESTION Time Seen by Provider: 10/06/19 14:55 Hx Obtained From: Patient Hx Last Menstrual Period: "years ago." s/p hyst ?: No Onset/Duration: Sudden Onset, Lasting Days - 1 Timing: Constant Severity Initially: Mild Severity Currently: Mild Character: Cough: Nonproductive Aggravating Factors: Nothing Alleviating Factors: Other - o@ Associated Signs And Symptoms: Positive: Fever, Chills - Allergies/Home Medications Allergies/Adverse Reactions: Allergies Allergy/AdvReac Type Severity Reaction Status Date / Time fluticasone Allergy See Comment Verified 05/05/19 12:23 [From Advair Diskus] salmeterol Allergy See Comment Verified 05/05/19 12:23 [From Advair Diskus] PMH/Surg Hx/FS Hx/Imm Hx Previously Healthy: No Cardiovascular History: Hypertension Respiratory History: COPD GI/ History: Gastroesophageal Reflux Cancer History: Lung Cancer Other History Of: Negative For: HIV, Hepatitis B, Hepatitis C, Anticoagulant Therapy - Surgical History Surgical History: Yes Surgery Procedure, Year, and Place: HYSTERECTOMY. POWER PORT - Family History Known Family History: Positive: Hypertension, Diabetes Negative: Cardiac Disease, Renal Disease - Social History Occupation: Disabled Lives: With Family Alcohol Use: Rare Substance Use Type: None Smoking Status (MU): Former Smoker Type: Cigarettes - Immunization History Most Recent Influenza Vaccination: 06/2018 Most Recent Pneumonia Vaccination: 06/2018 Review of Systems All Other Systems Reviewed And Are Negative: Yes Constitutional: Positive: Fever, Chills, Fatigue Skin: Positive: Negative Eyes: Positive: Negative ENT: Positive: Negative Respiratory: Positive: Shortness Of Breath, Cough Cardiovascular: Positive: Negative Gastrointestinal: Positive: Negative Genitourinary: Positive: Negative Motor: Positive: Negative Neurovascular: Positive: Negative Musculoskeletal: Positive: Arthralgia, Myalgia Neurological: Positive: Negative Psychological: Positive: Negative Is Patient Immunocompromised?: No Physical Exam Triage Information Reviewed: Yes Appearance: No Pain Distress, Well-Nourished, Ill-Appearing - mild Vital Signs: Initial Vital Signs Temp 99.4 F 10/06/19 15:01 Pulse 91 10/06/19 15:01 Resp 18 10/06/19 15:01 BP 150/72 10/06/19 15:01 Pulse Ox 97 10/06/19 15:01 Vital Signs Reviewed: Yes Eye Exam: Normal Eyes: Positive: Conjunctiva Clear ENT Exam: Normal ENT: Positive: Normal ENT inspection, Hearing grossly normal, Pharynx normal, TMs normal, Uvula midline. Negative: Nasal congestion, Nasal drainage, Tonsillar swelling, Trismus, Muffled voice, Hoarse voice, Dental tenderness, Sinus tenderness Dental Exam: Normal Neck exam: Normal Neck: Positive: Supple, Nontender, No Lymphadenopathy Respiratory Exam: Normal Respiratory: Positive: Chest non-tender, Lungs clear, Normal breath sounds, No respiratory distress, No accessory muscle use Cardiovascular Exam: Normal Cardiovascular: Positive: RRR, No Murmur, Pulses Normal, Brisk Capillary Refill Musculoskeletal Exam: Normal Musculoskeletal: Positive: Strength Intact, ROM Intact, No Edema Neurological Exam: Normal Neurological: Positive: Alert, Muscle Tone Normal, Fatigued Psychological Exam: Normal Skin Exam: Normal Diagnostics - Laboratory Lab Results: influenza A/B negative - Radiology No standard instances Radiology Interpretation Completed By: Radiologist - left upper lobe anterior infiltrate - EKG Cardiac Rate: NL Cardiac Rhythm: Sinus: Normal Ectopy: None ST Segment: Non-Specific EKG Comparison: No Significant Change Respiratory Course/Dx - Course Course Of Treatment: treat with zithromax and augmentin follow with Dr. Easton this week and get bp rechecked - Differential Dx/Diagnosis Provider Diagnosis: CAP (community acquired pneumonia), Hypertension Discharge ED - Sign-Out/Discharge Documenting (check all that apply): Patient Departure All imaging exams completed and their final reports reviewed: Yes - Discharge Plan Condition: Stable Disposition: HOME Prescriptions: Amoxicillin/Clavulanate TAB* [Augmentin TAB 875*] 875 mg PO BID #20 tab Azithromycin TAB* [Zithromax TAB (Z-SOCORRO) 250 mg #6 tabs] 2 tab PO .TODAY, THEN 1 DAILY #1 socorro Patient Education Materials: Community Acquired Pneumonia (ED), Hypertension ( ED) Referrals: Alexei West MD [Primary Care Provider] - 1 Week - Billing Disposition and Condition Condition: STABLE Disposition: Home - Attestation Statements Provider Attestation: Per institutional requirements, I have reviewed the chart, however, I was not consulted specifically or made aware of this patient by the midlevel provider. I did not personally evaluate, interact with , or disposition this patient.
== END 2019-10-06 16:06 | disposition home or self-care (01) ==
LOC: UCEAST 14:53
DX: J18.9 Pneumonia, unspecified organism (principal); J44.9 Chronic obstructive pulmonary disease, unspecified; I10 Essential (primary) hypertension; R91.8 Other nonspecific abnormal finding of lung field; Z88.8 Allergy status to other drugs, medicaments and biological substances; Z85.118 Personal history of other malignant neoplasm of bronchus and lung; Z87.891 Personal history of nicotine dependence
CPT/HCPCS: 71046; 93005; 99212; G0463

== ENCOUNTER 2020-09-03 09:09 | Inpatient (IN) ==
[2020-09-03] MEDS ORDERED: NS 0.9% 1000 ml BAG 1,000 ML IV ONE ×3 (09:38→13:52)
[2020-09-03 10:26] LABS: ABS Basophils 0.1 10^3/ul (0-0.2); ABS Lymphocytes 0.9 10^3/ul (1.0-4.8); ABS Monocytes 0.5 10^3/ul (0-0.8); ABS Neutrophils 10.9 10^3/ul (1.5-7.7); Eosinophil % 0.3 %; Hematocrit 36 % (35-47); Hemoglobin 12.1 g/dL (12.0-16.0); Lymphocyte % 7.1 %; Mean Corpuscular HGB Conc 33 g/dL (31-36); Mean Corpuscular Hemoglobin 29 pg (27-31); Mean Corpuscular Volume 86 fL (80-97); Mean Platelet Volume 7.6 fL (7.4-10.4); Platelet Count 301 10^3/uL (150-450); Red Blood Count 4.25 10^6 /uL (3.70-4.87); Red Cell Distribution Width 13 % (10-15); White Blood Count 12.4 10^3/uL (3.5-10.8)
[2020-09-03 10:43] LABS: Albumin 3.7 g/dL (3.2-5.2); Albumin/Globulin Ratio 1.2 (1-3); BUN/Creatinine Ratio 17.3 (8-20); C Reactive Protein 35.77 mg/L (<8.01); Calcium 9.1 mg/dL (8.6-10.3); EGFR African American 85.1 (>60); EGFR Non-African American 70.3 (>60); Globulin 3.1 g/dL (2-4); Potassium 3.8 mmol/L (3.5-5.0); Total Bilirubin 0.3 mg/dL (0.2-1.0); Total Protein 6.8 g/dL (6.4-8.9)
[2020-09-03] MEDS ORDERED: Iohexol 300 (CONTRAST) 10 ML SDV IV ONE (11:40)
[2020-09-03] MEDS ORDERED: Piperacillin/Tazobac ADVAN 3.375 GM in NS 0.9% 100 ml BAG 100 ML IVPB ONE (13:52)
[2020-09-03] MEDS ORDERED: Piperacillin/Tazobac 3.375 GM BAG ONE (13:55)
[2020-09-03] MEDS ORDERED: Albuterol 2.5mg/3 ml (0.083%) NEB.SOLN INH PRN (14:39)
[2020-09-03] MEDS ORDERED: Prochlorperazine 5 mg/ml 2 ml VIAL (10 mg) IV PRN (14:43)
[2020-09-03] MEDS ORDERED: Albuterol HFA INHALER 8 gm MDI INH PRN (14:47)
[2020-09-03] MEDS: Latanoprost 0.005% 2.5 ml BTL BOTH EYES SCH (17:41)
[2020-09-03] MEDS: cefTRIAXone 1 gm/50 mL NS BAG 1 GM/50 ML BAG IVPB SCH (17:42)
[2020-09-03] MEDS: metroNIDAZOLE IV 500 MG/100ML 500 MG/100 ML BAG IVPB SCH (17:42)
[2020-09-03] MEDS: Mometasone/Formoter 100/5 MDI INH SCH (19:23)
[2020-09-03] MEDS: Heparin 5000 UNITS/ML 1 mL VIAL SUBCUT SCH (20:27)
[2020-09-04] MEDS: metroNIDAZOLE IV 500 MG/100ML 500 MG/100 ML BAG IVPB SCH ×4 (00:03→23:35)
[2020-09-04] MEDS: Heparin 5000 UNITS/ML 1 mL VIAL SUBCUT SCH ×3 (06:02→20:45)
[2020-09-04 06:33] LABS: ABS Eosinophils 0.2 10^3/ul (0-0.6); ABS Lymphocytes 1.2 10^3/ul (1.0-4.8); ABS Monocytes 0.6 10^3/ul (0-0.8); ABS Neutrophils 7.7 10^3/ul (1.5-7.7); Eosinophil % 2.4 %; Hematocrit 33 % (35-47); Hemoglobin 11.4 g/dL (12.0-16.0); Lymphocyte % 12.4 %; Mean Corpuscular HGB Conc 35 g/dL (31-36); Mean Corpuscular Hemoglobin 29 pg (27-31); Mean Corpuscular Volume 85 fL (80-97); Mean Platelet Volume 7.7 fL (7.4-10.4); Platelet Count 280 10^3/uL (150-450); Red Cell Distribution Width 13 % (10-15); White Blood Count 9.7 10^3/uL (3.5-10.8)
[2020-09-04 06:49] LABS: C Reactive Protein 54.14 mg/L (<8.01); Calcium 8.2 mg/dL (8.6-10.3); EGFR African American 95.9 (>60); EGFR Non-African American 79.3 (>60)
[2020-09-04] MEDS: SPIRIVA Respimat (tiotropium) 2.5 mcg/inh Inhaler INH SCH (07:38)
[2020-09-04] MEDS: Mometasone/Formoter 100/5 MDI INH SCH ×2 (07:39→19:34)
[2020-09-04] MEDS: Vitamin THERAPEUTIC TAB PO SCH (08:08)
[2020-09-04] MEDS ORDERED: FLUTICASONE/UMECLIDIN/VILANTER 1 PUFF MDI INH SCH (09:00)
[2020-09-04] MEDS: Conjugated Estrogens 0.625 TAB PO SCH (13:25)
[2020-09-04] MEDS: cefTRIAXone 1 gm/50 mL NS BAG 1 GM/50 ML BAG IVPB SCH (14:51)
[2020-09-04] MEDS: Latanoprost 0.005% 2.5 ml BTL BOTH EYES SCH (16:11)
[2020-09-04] MEDS ORDERED: PEG 3000 GI LAVAGE 1 GALLON PO ONE (17:00)
[2020-09-05] MEDS: metroNIDAZOLE IV 500 MG/100ML 500 MG/100 ML BAG IVPB SCH ×3 (06:12→23:08)
[2020-09-05] MEDS: Heparin 5000 UNITS/ML 1 mL VIAL SUBCUT SCH ×4 (06:12→20:46)
[2020-09-05] MEDS: SPIRIVA Respimat (tiotropium) 2.5 mcg/inh Inhaler INH SCH (08:48)
[2020-09-05] MEDS: Mometasone/Formoter 100/5 MDI INH SCH ×2 (08:48→19:50)
[2020-09-05] MEDS: Conjugated Estrogens 0.625 TAB PO SCH (10:21)
[2020-09-05] MEDS: Vitamin THERAPEUTIC TAB PO SCH (10:22)
[2020-09-05] MEDS ORDERED: Midazolam 10 mg/10 ml VIAL 1 mg/ml 10 ml VIAL (10 mg) ONE (13:00)
[2020-09-05] MEDS ORDERED: fentaNYL 100 mcg/2 ml 50 MCG/ML VIAL ONE (13:00)
[2020-09-05] MEDS: cefTRIAXone 1 gm/50 mL NS BAG 1 GM/50 ML BAG IVPB SCH (15:40)
[2020-09-05] MEDS: Latanoprost 0.005% 2.5 ml BTL BOTH EYES SCH (17:05)
[2020-09-06] MEDS: Heparin 5000 UNITS/ML 1 mL VIAL SUBCUT SCH (06:17)
[2020-09-06] MEDS: metroNIDAZOLE IV 500 MG/100ML 500 MG/100 ML BAG IVPB SCH ×3 (06:17→22:38)
[2020-09-06] MEDS: Vitamin THERAPEUTIC TAB PO SCH (07:58)
[2020-09-06] MEDS: Conjugated Estrogens 0.625 TAB PO SCH (07:59)
[2020-09-06] MEDS: Mometasone/Formoter 100/5 MDI INH SCH ×2 (08:21→20:09)
[2020-09-06] MEDS: SPIRIVA Respimat (tiotropium) 2.5 mcg/inh Inhaler INH SCH (08:22)
[2020-09-06] MEDS: Enoxaparin 40 MG/0.4 ML SYR SUBCUT SCH (10:02)
[2020-09-06] MEDS: cefTRIAXone 1 gm/50 mL NS BAG 1 GM/50 ML BAG IVPB SCH (15:40)
[2020-09-06] MEDS: Latanoprost 0.005% 2.5 ml BTL BOTH EYES SCH (16:55)
[2020-09-07] MEDS: metroNIDAZOLE IV 500 MG/100ML 500 MG/100 ML BAG IVPB SCH ×3 (06:05→22:23)
[2020-09-07 06:25] LABS: ABS Eosinophils 0.4 10^3/ul (0-0.6); ABS Lymphocytes 0.8 10^3/ul (1.0-4.8); ABS Monocytes 0.7 10^3/ul (0-0.8); ABS Neutrophils 4.5 10^3/ul (1.5-7.7); Eosinophil % 5.6 %; Hematocrit 34 % (35-47); Mean Corpuscular HGB Conc 33 g/dL (31-36); Mean Corpuscular Hemoglobin 28 pg (27-31); Mean Corpuscular Volume 86 fL (80-97); Mean Platelet Volume 7.3 fL (7.4-10.4); Platelet Count 262 10^3/uL (150-450); Red Blood Count 3.93 10^6 /uL (3.70-4.87); Red Cell Distribution Width 13 % (10-15); White Blood Count 6.3 10^3/uL (3.5-10.8)
[2020-09-07 07:02] LABS: BUN/Creatinine Ratio 7.1 (8-20); EGFR African American 100.7 (>60); EGFR Non-African American 83.2 (>60); Magnesium 1.6 mg/dL (1.9-2.7); Potassium 3.2 mmol/L (3.5-5.0)
[2020-09-07] MEDS: Mometasone/Formoter 100/5 MDI INH SCH ×2 (08:12→20:57)
[2020-09-07] MEDS: SPIRIVA Respimat (tiotropium) 2.5 mcg/inh Inhaler INH SCH (08:12)
[2020-09-07] MEDS: Vitamin THERAPEUTIC TAB PO SCH (09:05)
[2020-09-07] MEDS: Conjugated Estrogens 0.625 TAB PO SCH (09:06)
[2020-09-07] MEDS: Enoxaparin 40 MG/0.4 ML SYR SUBCUT SCH (09:07)
[2020-09-07] MEDS ORDERED: Magnesium Sulfate 2 gm BAG 2 GM/50 ML BAG IVPB ONE (10:05)
[2020-09-07] MEDS ORDERED: KCL 20 MEQ/100 ML IVPREMIX 20 MEQ/100 ML BAG IV ONE (10:05)
[2020-09-07] MEDS ORDERED: Potassium Chlor 20 meq TAB.ER PO ONE (10:05)
[2020-09-07] MEDS: cefTRIAXone 1 gm/50 mL NS BAG 1 GM/50 ML BAG IVPB SCH (15:59)
[2020-09-07] MEDS: Latanoprost 0.005% 2.5 ml BTL BOTH EYES SCH (18:06)
[2020-09-07 18:27] LABS: Adenovirus Result Negative (Negative)
[2020-09-08 05:46] LABS: Calcium 8.2 mg/dL (8.6-10.3); Magnesium 1.7 mg/dL (1.9-2.7); Potassium 3.5 mmol/L (3.5-5.0)
[2020-09-08 05:51] LABS: BUN/Creatinine Ratio 7.1 (8-20); EGFR African American 100.7 (>60); EGFR Non-African American 83.2 (>60)
[2020-09-08] MEDS: metroNIDAZOLE IV 500 MG/100ML 500 MG/100 ML BAG IVPB SCH ×2 (06:37→14:29)
[2020-09-08] MEDS: Mometasone/Formoter 100/5 MDI INH SCH (08:24)
[2020-09-08] MEDS: SPIRIVA Respimat (tiotropium) 2.5 mcg/inh Inhaler INH SCH (08:24)
[2020-09-08] MEDS ORDERED: Magnesium Sulfate IV 3 GM in NS 0.9% 100 ml BAG 100 ML IVPB ONE (08:30)
[2020-09-08] MEDS: Conjugated Estrogens 0.625 TAB PO SCH (08:54)
[2020-09-08] MEDS: Vitamin THERAPEUTIC TAB PO SCH (08:54)
[2020-09-08] MEDS: Enoxaparin 40 MG/0.4 ML SYR SUBCUT SCH (08:56)
[2020-09-08] MEDS: cefTRIAXone 1 gm/50 mL NS BAG 1 GM/50 ML BAG IVPB SCH (15:44)
[2020-09-08 16:52] VITALS: BP 144/71
== END 2020-09-08 18:00 | disposition home or self-care (01) | DRG 872 ==
LOC: ED 09:09 → MEDTELE 09:09
PROVIDERS: ADMIT Internal Medicine; ATTEND Internal Medicine

== ENCOUNTER 2020-09-19 11:49 | Inpatient (IN) ==
[2020-09-19] MEDS ORDERED: NS 0.9% 1000 ml BAG 1,000 ML IV ONE (15:19)
[2020-09-19 15:35] LABS: ABS Basophils 0.1 10^3/ul (0-0.2); ABS Eosinophils 0.2 10^3/ul (0-0.6); ABS Lymphocytes 1.2 10^3/ul (1.0-4.8); ABS Monocytes 0.9 10^3/ul (0-0.8); ABS Neutrophils 10.4 10^3/ul (1.5-7.7); Eosinophil % 1.6 %; Hematocrit 36 % (35-47); Hemoglobin 12.2 g/dL (12.0-16.0); Lymphocyte % 9.5 %; Mean Corpuscular HGB Conc 34 g/dL (31-36); Mean Corpuscular Hemoglobin 29 pg (27-31); Mean Corpuscular Volume 85 fL (80-97); Mean Platelet Volume 7.6 fL (7.4-10.4); Platelet Count 358 10^3/uL (150-450); Red Blood Count 4.27 10^6 /uL (3.70-4.87); Red Cell Distribution Width 13 % (10-15); White Blood Count 12.8 10^3/uL (3.5-10.8)
[2020-09-19 15:57] LABS: Albumin 3.6 g/dL (3.2-5.2); Albumin/Globulin Ratio 1.3 (1-3); BUN/Creatinine Ratio 14.3 (8-20); C Reactive Protein 11.18 mg/L (<8.01); Calcium 9.1 mg/dL (8.6-10.3); EGFR African American 90.2 (>60); EGFR Non-African American 74.5 (>60); Globulin 2.8 g/dL (2-4); Potassium 3.9 mmol/L (3.5-5.0); Total Bilirubin 0.4 mg/dL (0.2-1.0); Total Protein 6.4 g/dL (6.4-8.9)
[2020-09-19] MEDS ORDERED: Albuterol 2.5mg/3 ml (0.083%) NEB.SOLN INH PRN (16:42)
[2020-09-19] MEDS ORDERED: Albuterol HFA INHALER 8 gm MDI INH PRN (16:54)
[2020-09-19] MEDS: NS 0.9% 1000 ml BAG 1,000 ML IV SCH (18:13)
[2020-09-19] MEDS: Latanoprost 0.005% 2.5 ml BTL BOTH EYES SCH (18:34)
[2020-09-19] MEDS: cefTRIAXone 1 gm/50 mL NS BAG 1 GM/50 ML BAG IVPB SCH (18:34)
[2020-09-19] MEDS: metroNIDAZOLE IV 500 MG/100ML 500 MG/100 ML BAG IVPB SCH (19:37)
[2020-09-19 20:06] LABS: Urine Appearance Cloudy; Urine Bilirubin Negative (Negative); Urine Blood Negative (Negative); Urine Color Amber; Urine Glucose Negative (Negative); Urine Ketones Negative (Negative); Urine Nitrite Negative (Negative); Urine Protein Negative (Negative); Urine Specific Gravity 1.019 (1.010-1.030); Urine Urobilinogen Negative (Negative)
[2020-09-19 20:11] LABS: Urine Bacteria 1+ (Absent); Urine Red Blood Cell 1+(3-5/hpf) (Absent); Urine Squamous Epithelial Cell Present (Absent); Urine White Blood Cell 3+(>20/hpf) (Absent)
[2020-09-19] MEDS: Heparin 5000 UNITS/ML 1 mL VIAL SUBCUT SCH (22:00)
[2020-09-20] MEDS: metroNIDAZOLE IV 500 MG/100ML 500 MG/100 ML BAG IVPB SCH ×3 (01:58→18:11)
[2020-09-20] MEDS: Heparin 5000 UNITS/ML 1 mL VIAL SUBCUT SCH ×3 (05:47→21:04)
[2020-09-20] MEDS: Morphine 2 MG/ML SYRINGE IV PRN (05:47)
[2020-09-20] MEDS: Ondansetron 4 mg VIAL 2 MG/ML 2 ml VIAL IV PRN (05:47)
[2020-09-20 06:14] LABS: ABS Basophils 0.1 10^3/ul (0-0.2); ABS Eosinophils 0.5 10^3/ul (0-0.6); ABS Lymphocytes 1.1 10^3/ul (1.0-4.8); ABS Monocytes 0.7 10^3/ul (0-0.8); ABS Neutrophils 9.6 10^3/ul (1.5-7.7); Hematocrit 37 % (35-47); Hemoglobin 12.1 g/dL (12.0-16.0); Lymphocyte % 8.8 %; Mean Corpuscular HGB Conc 33 g/dL (31-36); Mean Corpuscular Hemoglobin 28 pg (27-31); Mean Corpuscular Volume 86 fL (80-97); Platelet Count 360 10^3/uL (150-450); Red Blood Count 4.31 10^6 /uL (3.70-4.87); Red Cell Distribution Width 13 % (10-15)
[2020-09-20 06:26] LABS: BUN/Creatinine Ratio 10.7 (8-20); Calcium 8.2 mg/dL (8.6-10.3); EGFR Non-African American 76.8 (>60); Potassium 4.1 mmol/L (3.5-5.0)
[2020-09-20] MEDS: NS 0.9% 1000 ml BAG 1,000 ML IV SCH ×2 (07:29→22:32)
[2020-09-20] MEDS: Conjugated Estrogens 0.625 TAB PO SCH (07:37)
[2020-09-20] MEDS: UMECLIDIN MDI INH SCH (07:38)
[2020-09-20] MEDS: VILANTER INH SCH (07:38)
[2020-09-20] MEDS: FLUTICASONE INH SCH (07:38)
[2020-09-20] MEDS ORDERED: Iohexol 300 (CONTRAST) 10 ML SDV IV ONE (09:47)
[2020-09-20] MEDS: cefTRIAXone 1 gm/50 mL NS BAG 1 GM/50 ML BAG IVPB SCH (17:15)
[2020-09-20] MEDS: Latanoprost 0.005% 2.5 ml BTL BOTH EYES SCH (18:12)
[2020-09-21] MEDS: metroNIDAZOLE IV 500 MG/100ML 500 MG/100 ML BAG IVPB SCH ×2 (02:06→09:17)
[2020-09-21] MEDS: Heparin 5000 UNITS/ML 1 mL VIAL SUBCUT SCH ×3 (06:12→21:14)
[2020-09-21] MEDS: FLUTICASONE INH SCH (08:23)
[2020-09-21] MEDS: VILANTER INH SCH (08:23)
[2020-09-21] MEDS: UMECLIDIN MDI INH SCH (08:23)
[2020-09-21] MEDS: Conjugated Estrogens 0.625 TAB PO SCH (09:17)
[2020-09-21] MEDS: NS 0.9% 1000 ml BAG 1,000 ML IV SCH ×2 (09:22→21:12)
[2020-09-21] MEDS: Piperacillin/Tazobac ADVAN 3.375 GM in NS 0.9% 100 ml BAG 100 ML IV SCH ×2 (11:54→18:33)
[2020-09-21] MEDS: Latanoprost 0.005% 2.5 ml BTL BOTH EYES SCH (18:33)
[2020-09-22] MEDS: Piperacillin/Tazobac ADVAN 3.375 GM in NS 0.9% 100 ml BAG 100 ML IV SCH ×3 (03:06→19:08)
[2020-09-22] MEDS: Heparin 5000 UNITS/ML 1 mL VIAL SUBCUT SCH ×3 (05:31→21:06)
[2020-09-22 05:47] LABS: ABS Eosinophils 0.5 10^3/ul (0-0.6); ABS Monocytes 0.4 10^3/ul (0-0.8); ABS Neutrophils 4.7 10^3/ul (1.5-7.7); Eosinophil % 7.3 %; Hematocrit 32 % (35-47); Hemoglobin 10.6 g/dL (12.0-16.0); Lymphocyte % 14.8 %; Mean Corpuscular HGB Conc 33 g/dL (31-36); Mean Corpuscular Hemoglobin 28 pg (27-31); Mean Corpuscular Volume 86 fL (80-97); Mean Platelet Volume 7.8 fL (7.4-10.4); Platelet Count 273 10^3/uL (150-450); Red Blood Count 3.74 10^6 /uL (3.70-4.87); Red Cell Distribution Width 14 % (10-15); White Blood Count 6.6 10^3/uL (3.5-10.8)
[2020-09-22 06:02] LABS: BUN/Creatinine Ratio 6.8 (8-20); Calcium 8.2 mg/dL (8.6-10.3); EGFR African American 95.9 (>60); EGFR Non-African American 79.3 (>60); Potassium 3.8 mmol/L (3.5-5.0)
[2020-09-22] MEDS: NS 0.9% 1000 ml BAG 1,000 ML IV SCH ×2 (06:17→19:08)
[2020-09-22] MEDS: Morphine 2 MG/ML SYRINGE IV PRN (07:53)
[2020-09-22] MEDS: VILANTER INH SCH (07:55)
[2020-09-22] MEDS: UMECLIDIN MDI INH SCH (07:55)
[2020-09-22] MEDS: FLUTICASONE INH SCH (07:55)
[2020-09-22] MEDS: Conjugated Estrogens 0.625 TAB PO SCH (07:58)
[2020-09-22] MEDS: Latanoprost 0.005% 2.5 ml BTL BOTH EYES SCH (19:08)
[2020-09-22] MEDS ORDERED: ARTIFICIAL TEARS BOTH EYES PRN (22:56)
[2020-09-22] MEDS ORDERED: LEVOCETIRIZINE 5 MG PO SCH (23:00)
[2020-09-22] MEDS: LEVOCETIRIZINE 5 MG PO SCH (23:47)
[2020-09-23] MEDS: Piperacillin/Tazobac ADVAN 3.375 GM in NS 0.9% 100 ml BAG 100 ML IV SCH ×3 (03:44→18:19)
[2020-09-23] MEDS: NS 0.9% 1000 ml BAG 1,000 ML IV SCH (05:00)
[2020-09-23] MEDS: Heparin 5000 UNITS/ML 1 mL VIAL SUBCUT SCH ×3 (06:01→22:02)
[2020-09-23] MEDS: VILANTER INH SCH (08:48)
[2020-09-23] MEDS: FLUTICASONE INH SCH (08:48)
[2020-09-23] MEDS: UMECLIDIN MDI INH SCH (08:48)
[2020-09-23] MEDS: Conjugated Estrogens 0.625 TAB PO SCH (09:47)
[2020-09-23] MEDS: PTO: Fexofenadine 180 mg TAB (NF) PO SCH (09:47)
[2020-09-23] MEDS: LEVOCETIRIZINE 5 MG PO SCH ×2 (09:48→22:01)
[2020-09-23] MEDS: Latanoprost 0.005% 2.5 ml BTL BOTH EYES SCH (19:06)
[2020-09-23] MEDS ORDERED: Vancomycin per Pharmacy 1 EA NOTE FOLLOW UP PRN (23:22)
[2020-09-23] MEDS ORDERED: Vancomycin 1,500 MG in NS 0.9% 250 ml 250 ML IVPB ONE (23:30)
[2020-09-24] MEDS: Piperacillin/Tazobac ADVAN 3.375 GM in NS 0.9% 100 ml BAG 100 ML IV SCH ×2 (03:25→11:19)
[2020-09-24] MEDS: Heparin 5000 UNITS/ML 1 mL VIAL SUBCUT SCH ×3 (05:11→21:42)
[2020-09-24] MEDS: VILANTER INH SCH (08:10)
[2020-09-24] MEDS: FLUTICASONE INH SCH (08:10)
[2020-09-24] MEDS: UMECLIDIN MDI INH SCH (08:10)
[2020-09-24] MEDS: LEVOCETIRIZINE 5 MG PO SCH ×2 (08:27→21:43)
[2020-09-24] MEDS: PTO: Fexofenadine 180 mg TAB (NF) PO SCH (08:27)
[2020-09-24] MEDS: Conjugated Estrogens 0.625 TAB PO SCH (08:28)
[2020-09-24] MEDS: Vancomycin 1000 MG in NS 0.9% 250 ML IVPB SCH ×2 (09:24→21:42)
[2020-09-24] MEDS: Latanoprost 0.005% 2.5 ml BTL BOTH EYES SCH (18:01)
[2020-09-25] MEDS: Heparin 5000 UNITS/ML 1 mL VIAL SUBCUT SCH ×3 (05:32→21:11)
[2020-09-25 06:32] LABS: ABS Basophils 0.1 10^3/ul (0-0.2); ABS Eosinophils 0.4 10^3/ul (0-0.6); ABS Lymphocytes 1.2 10^3/ul (1.0-4.8); ABS Monocytes 0.6 10^3/ul (0-0.8); ABS Neutrophils 5.1 10^3/ul (1.5-7.7); Eosinophil % 5.1 %; Hematocrit 35 % (35-47); Hemoglobin 11.5 g/dL (12.0-16.0); Lymphocyte % 16.8 %; Mean Corpuscular HGB Conc 33 g/dL (31-36); Mean Corpuscular Hemoglobin 28 pg (27-31); Mean Corpuscular Volume 86 fL (80-97); Mean Platelet Volume 7.8 fL (7.4-10.4); Platelet Count 305 10^3/uL (150-450); Red Blood Count 4.04 10^6 /uL (3.70-4.87); Red Cell Distribution Width 14 % (10-15); White Blood Count 7.4 10^3/uL (3.5-10.8)
[2020-09-25 06:45] LABS: Calcium 9.2 mg/dL (8.6-10.3); EGFR African American 99.1 (>60); EGFR Non-African American 81.9 (>60); Potassium 3.7 mmol/L (3.5-5.0)
[2020-09-25] MEDS ORDERED: Alteplase (CATHFLO) 2 MG VIAL IV ONE (08:30)
[2020-09-25] MEDS: UMECLIDIN MDI INH SCH (08:37)
[2020-09-25] MEDS: VILANTER INH SCH (08:37)
[2020-09-25] MEDS: FLUTICASONE INH SCH (08:37)
[2020-09-25] MEDS: LEVOCETIRIZINE 5 MG PO SCH ×2 (08:38→21:11)
[2020-09-25] MEDS: PTO: Fexofenadine 180 mg TAB (NF) PO SCH (08:38)
[2020-09-25] MEDS ORDERED: Vancomycin Trough Check NOTE FOLLOW UP ONE (09:30)
[2020-09-25] MEDS: Vancomycin 1000 MG in NS 0.9% 250 ML IVPB SCH (10:45)
[2020-09-25] MEDS ORDERED: Zosyn per Pharmacy NOTE FOLLOW UP SCH (11:00)
[2020-09-25] MEDS ORDERED: Piperacillin/Tazobac ADVAN 3.375 GM in NS 0.9% 100 ml BAG 100 ML IV ONE (11:00)
[2020-09-25] MEDS ORDERED: Polyethylene Glycol 3350 BTL 238 GM BTL PO ONE (12:00)
[2020-09-25] MEDS: ZOSYN 3.375 GM Q8H per EXTENDED INFUSION IV SCH ×2 (15:12→23:26)
[2020-09-25] MEDS: Latanoprost 0.005% 2.5 ml BTL BOTH EYES SCH (17:14)
[2020-09-25] MEDS: Ondansetron 4 mg VIAL 2 MG/ML 2 ml VIAL IV PRN (17:14)
[2020-09-26] MEDS: Heparin 5000 UNITS/ML 1 mL VIAL SUBCUT SCH ×3 (04:54→22:37)
[2020-09-26] MEDS ORDERED: Buffered Lidocaine 1% SYRIN 1 ml INTRADERM ONE (06:00)
[2020-09-26] MEDS ORDERED: Lactated Ringers 1000 ml BAG 1,000 ML IV SCH (06:00)
[2020-09-26] MEDS: ZOSYN 3.375 GM Q8H per EXTENDED INFUSION IV SCH ×3 (06:31→22:56)
[2020-09-26] MEDS: PTO: Fexofenadine 180 mg TAB (NF) PO SCH (08:33)
[2020-09-26] MEDS: FLUTICASONE INH SCH (08:33)
[2020-09-26] MEDS: VILANTER INH SCH (08:33)
[2020-09-26] MEDS: UMECLIDIN MDI INH SCH (08:33)
[2020-09-26] MEDS: LEVOCETIRIZINE 5 MG PO SCH ×2 (08:34→21:33)
[2020-09-26] MEDS ORDERED: Rocuronium 50 mg VIAL 10 mg/ml 5 ml VIAL (50 mg) ONE ×3 (09:29→15:20)
[2020-09-26] MEDS ORDERED: Etomidate 20 mg/10 ml 2 MG/ML 10 ml VIAL ONE (09:29)
[2020-09-26] MEDS ORDERED: Propofol 10 MG/ML 20 ML BTL ONE (09:29)
[2020-09-26] MEDS ORDERED: fentaNYL 250 mcg/5 ml 50 MCG/ML 5 ml VIAL (250 MCG) ONE (09:30)
[2020-09-26] MEDS ORDERED: Lidocaine 2% PF 5 ML VIAL ONE (09:30)
[2020-09-26] MEDS ORDERED: Phenylephrine 40 mcg/mL 10mL (400mcg) SYRINGE ONE (09:31)
[2020-09-26] MEDS ORDERED: Bupivacaine 0.25% SDV 30 ML ONE (10:13)
[2020-09-26] MEDS ORDERED: Naloxone 0.4 mg VIAL 0.4 mg/ml 1 ml VIAL IV PRN (12:26)
[2020-09-26] MEDS ORDERED: Ondansetron 4 mg VIAL 2 MG/ML 2 ml VIAL IV PRN (12:26)
[2020-09-26] MEDS ORDERED: DiMENhydriNATE IV 50 mg/ml 1 ml VIAL IV PUSH PRN (12:26)
[2020-09-26] MEDS ORDERED: fentaNYL 100 mcg/2 ml 50 MCG/ML VIAL ONE ×3 (12:54→17:47)
[2020-09-26] MEDS ORDERED: Acetaminophen IV 1 GM/100ML 100 ML ONE (16:44)
[2020-09-26] MEDS ORDERED: HYDROmorphone 1 MG/1 ML SYRINGE ONE (16:47)
[2020-09-26] MEDS ORDERED: Naloxone 0.4 mg VIAL 0.4 mg/ml 1 ml VIAL IV PUSH PRN (17:40)
[2020-09-26] MEDS ORDERED: Morphine PCA ADULT 5 MG/ML 30 ML PCA SCH (17:45)
[2020-09-26] MEDS: fentaNYL 100 mcg/2 ml 50 MCG/ML VIAL IV PRN ×2 (17:48→18:15)
[2020-09-26] MEDS: D5W 1/2 NS 1000 ml BAG 1,000 ML IV SCH (18:30)
[2020-09-26] MEDS: Latanoprost 0.005% 2.5 ml BTL BOTH EYES SCH (21:10)
[2020-09-26] MEDS: Acetaminophen IV 1 GM/100ML 100 ML IVPB SCH ×3 (21:11→22:37)
[2020-09-27] MEDS: D5W 1/2 NS 1000 ml BAG 1,000 ML IV SCH ×2 (04:04→14:38)
[2020-09-27 04:35] LABS: ABS Lymphocytes 0.7 10^3/ul (1.0-4.8); ABS Monocytes 1.3 10^3/ul (0-0.8); ABS Neutrophils 16.2 10^3/ul (1.5-7.7); Hematocrit 35 % (35-47); Hemoglobin 11.4 g/dL (12.0-16.0); Lymphocyte % 3.8 %; Mean Corpuscular HGB Conc 33 g/dL (31-36); Mean Corpuscular Hemoglobin 28 pg (27-31); Mean Corpuscular Volume 87 fL (80-97); Mean Platelet Volume 7.9 fL (7.4-10.4); Platelet Count 318 10^3/uL (150-450); Red Blood Count 4.04 10^6 /uL (3.70-4.87); Red Cell Distribution Width 14 % (10-15); White Blood Count 18.2 10^3/uL (3.5-10.8)
[2020-09-27 04:54] LABS: BUN/Creatinine Ratio 9.2 (8-20); EGFR African American 91.6 (>60); EGFR Non-African American 75.7 (>60); Magnesium 1.4 mg/dL (1.9-2.7); Potassium 4.3 mmol/L (3.5-5.0)
[2020-09-27] MEDS: Heparin 5000 UNITS/ML 1 mL VIAL SUBCUT SCH ×3 (05:33→22:02)
[2020-09-27] MEDS: Acetaminophen IV 1 GM/100ML 100 ML IVPB SCH ×2 (06:22→14:30)
[2020-09-27] MEDS ORDERED: ZOSYN 3.375 GM Q8H per EXTENDED INFUSION IV SCH (06:30)
[2020-09-27] MEDS ORDERED: Magnesium Sulfate 2 gm BAG 2 GM/50 ML BAG IVPB ONE (07:30)
[2020-09-27] MEDS: LEVOCETIRIZINE 5 MG PO SCH ×2 (09:22→22:01)
[2020-09-27] MEDS: VILANTER INH SCH (09:23)
[2020-09-27] MEDS: FLUTICASONE INH SCH (09:23)
[2020-09-27] MEDS: UMECLIDIN MDI INH SCH (09:23)
[2020-09-27] MEDS: PTO: Fexofenadine 180 mg TAB (NF) PO SCH (09:24)
[2020-09-27] MEDS: Latanoprost 0.005% 2.5 ml BTL BOTH EYES SCH (17:37)
[2020-09-28] MEDS: D5W 1/2 NS 1000 ml BAG 1,000 ML IV SCH ×3 (01:01→21:03)
[2020-09-28] MEDS: Heparin 5000 UNITS/ML 1 mL VIAL SUBCUT SCH ×3 (05:41→21:34)
[2020-09-28 06:05] LABS: ABS Eosinophils 0.5 10^3/ul (0-0.6); ABS Lymphocytes 0.8 10^3/ul (1.0-4.8); ABS Monocytes 1.6 10^3/ul (0-0.8); ABS Neutrophils 12.9 10^3/ul (1.5-7.7); Eosinophil % 3.2 %; Hematocrit 29 % (35-47); Hemoglobin 9.3 g/dL (12.0-16.0); Lymphocyte % 5.3 %; Mean Corpuscular HGB Conc 32 g/dL (31-36); Mean Corpuscular Hemoglobin 28 pg (27-31); Mean Corpuscular Volume 86 fL (80-97); Mean Platelet Volume 7.5 fL (7.4-10.4); Platelet Count 286 10^3/uL (150-450); Red Blood Count 3.32 10^6 /uL (3.70-4.87); Red Cell Distribution Width 14 % (10-15); White Blood Count 15.8 10^3/uL (3.5-10.8)
[2020-09-28 06:16] LABS: BUN/Creatinine Ratio 7.4 (8-20); Calcium 7.7 mg/dL (8.6-10.3); EGFR African American 104.1 (>60); Magnesium 1.8 mg/dL (1.9-2.7); Potassium 3.6 mmol/L (3.5-5.0)
[2020-09-28] MEDS: VILANTER INH SCH (07:33)
[2020-09-28] MEDS: UMECLIDIN MDI INH SCH (07:33)
[2020-09-28] MEDS: FLUTICASONE INH SCH (07:33)
[2020-09-28] MEDS: LEVOCETIRIZINE 5 MG PO SCH ×2 (09:12→19:57)
[2020-09-28] MEDS: PTO: Fexofenadine 180 mg TAB (NF) PO SCH (09:12)
[2020-09-28] MEDS: Latanoprost 0.005% 2.5 ml BTL BOTH EYES SCH (18:35)
[2020-09-29] MEDS: Heparin 5000 UNITS/ML 1 mL VIAL SUBCUT SCH ×3 (05:29→22:12)
[2020-09-29 05:49] LABS: ABS Eosinophils 1.2 10^3/ul (0-0.6); ABS Monocytes 0.9 10^3/ul (0-0.8); Eosinophil % 10.6 %; Hematocrit 26 % (35-47); Hemoglobin 8.5 g/dL (12.0-16.0); Lymphocyte % 9.2 %; Mean Corpuscular HGB Conc 33 g/dL (31-36); Mean Corpuscular Hemoglobin 28 pg (27-31); Mean Corpuscular Volume 87 fL (80-97); Mean Platelet Volume 7.7 fL (7.4-10.4); Platelet Count 248 10^3/uL (150-450); Red Blood Count 3.01 10^6 /uL (3.70-4.87); Red Cell Distribution Width 14 % (10-15); White Blood Count 11.1 10^3/uL (3.5-10.8)
[2020-09-29 06:03] LABS: BUN/Creatinine Ratio 6.1 (8-20); EGFR African American 107.8 (>60); EGFR Non-African American 89.1 (>60); Potassium 3.1 mmol/L (3.5-5.0)
[2020-09-29] MEDS ORDERED: Potassium Chlor 20 meq TAB.ER PO ONE (07:17)
[2020-09-29] MEDS: D5W 1/2 NS 1000 ml BAG 1,000 ML IV SCH (07:29)
[2020-09-29] MEDS: VILANTER INH SCH (08:01)
[2020-09-29] MEDS: UMECLIDIN MDI INH SCH (08:01)
[2020-09-29] MEDS: FLUTICASONE INH SCH (08:01)
[2020-09-29] MEDS: LEVOCETIRIZINE 5 MG PO SCH ×2 (08:31→22:12)
[2020-09-29] MEDS: PTO: Fexofenadine 180 mg TAB (NF) PO SCH (08:31)
[2020-09-29] MEDS: KCL 20 MEQ/100 ML IVPREMIX 20 MEQ/100 ML BAG IV SCH ×2 (08:39→11:18)
[2020-09-29] MEDS: Latanoprost 0.005% 2.5 ml BTL BOTH EYES SCH (17:23)
[2020-09-29] MEDS: Lidocaine Patch REMOVE PATCH PATCH OFF SCH (22:14)
[2020-09-30] MEDS: Heparin 5000 UNITS/ML 1 mL VIAL SUBCUT SCH ×3 (06:13→22:11)
[2020-09-30 06:45] LABS: ABS Lymphocytes 1.1 10^3/ul (1.0-4.8); ABS Monocytes 0.8 10^3/ul (0-0.8); ABS Neutrophils 6.5 10^3/ul (1.5-7.7); Eosinophil % 10.5 %; Hematocrit 28 % (35-47); Hemoglobin 9.3 g/dL (12.0-16.0); Lymphocyte % 11.2 %; Mean Corpuscular HGB Conc 33 g/dL (31-36); Mean Corpuscular Hemoglobin 29 pg (27-31); Mean Corpuscular Volume 87 fL (80-97); Mean Platelet Volume 7.5 fL (7.4-10.4); Platelet Count 306 10^3/uL (150-450); Red Blood Count 3.26 10^6 /uL (3.70-4.87); Red Cell Distribution Width 14 % (10-15); White Blood Count 9.4 10^3/uL (3.5-10.8)
[2020-09-30 07:14] LABS: BUN/Creatinine Ratio 6.2 (8-20); Calcium 8.5 mg/dL (8.6-10.3); EGFR African American 109.7 (>60); EGFR Non-African American 90.6 (>60); Potassium 3.8 mmol/L (3.5-5.0)
[2020-09-30] MEDS: VILANTER INH SCH (07:50)
[2020-09-30] MEDS: FLUTICASONE INH SCH (07:50)
[2020-09-30] MEDS: UMECLIDIN MDI INH SCH (07:50)
[2020-09-30 08:06] LABS: Magnesium 1.5 mg/dL (1.9-2.7)
[2020-09-30] MEDS: PTO: Fexofenadine 180 mg TAB (NF) PO SCH (08:27)
[2020-09-30] MEDS: LEVOCETIRIZINE 5 MG PO SCH ×2 (08:28→22:11)
[2020-09-30] MEDS: Lidocaine PATCH 5% PATCH TRANSDERM SCH (08:30)
[2020-09-30] MEDS ORDERED: Magnesium Sulfate 2 gm BAG 2 GM/50 ML BAG IVPB ONE (14:32)
[2020-09-30] MEDS: Latanoprost 0.005% 2.5 ml BTL BOTH EYES SCH (17:18)
[2020-09-30] MEDS: Lidocaine Patch REMOVE PATCH PATCH OFF SCH (22:13)
[2020-10-01] MEDS: Heparin 5000 UNITS/ML 1 mL VIAL SUBCUT SCH ×3 (05:31→21:21)
[2020-10-01 06:18] LABS: Calcium 8.7 mg/dL (8.6-10.3); EGFR African American 120.3 (>60); EGFR Non-African American 99.4 (>60); Magnesium 1.5 mg/dL (1.9-2.7); Potassium 3.7 mmol/L (3.5-5.0)
[2020-10-01] MEDS ORDERED: Magnesium Sulfate IV 1GM/100ML 1 GM/100 ML BAG IV ONE (07:50)
[2020-10-01] MEDS: PTO: Fexofenadine 180 mg TAB (NF) PO SCH (08:05)
[2020-10-01] MEDS: LEVOCETIRIZINE 5 MG PO SCH ×2 (08:06→21:23)
[2020-10-01] MEDS: Lidocaine PATCH 5% PATCH TRANSDERM SCH (08:07)
[2020-10-01] MEDS: VILANTER INH SCH (08:30)
[2020-10-01] MEDS: FLUTICASONE INH SCH (08:30)
[2020-10-01] MEDS: UMECLIDIN MDI INH SCH (08:30)
[2020-10-01] MEDS: Latanoprost 0.005% 2.5 ml BTL BOTH EYES SCH (17:22)
[2020-10-01] MEDS: Lidocaine Patch REMOVE PATCH PATCH OFF SCH (21:26)
[2020-10-02] MEDS: Heparin 5000 UNITS/ML 1 mL VIAL SUBCUT SCH ×3 (05:29→22:12)
[2020-10-02 07:13] LABS: BUN/Creatinine Ratio 14.5 (8-20); EGFR African American 115.8 (>60); EGFR Non-African American 95.7 (>60); Magnesium 1.5 mg/dL (1.9-2.7); Potassium 3.9 mmol/L (3.5-5.0)
[2020-10-02] MEDS: FLUTICASONE INH SCH (08:11)
[2020-10-02] MEDS: VILANTER INH SCH (08:11)
[2020-10-02] MEDS: UMECLIDIN MDI INH SCH (08:11)
[2020-10-02] MEDS: LEVOCETIRIZINE 5 MG PO SCH ×2 (08:43→19:39)
[2020-10-02] MEDS: PTO: Fexofenadine 180 mg TAB (NF) PO SCH (08:44)
[2020-10-02] MEDS: Lidocaine PATCH 5% PATCH TRANSDERM SCH (09:15)
[2020-10-02] MEDS ORDERED: Magnesium Sulfate IV 1GM/100ML 1 GM/100 ML BAG IV ONE (10:43)
[2020-10-02] MEDS: Latanoprost 0.005% 2.5 ml BTL BOTH EYES SCH (18:11)
[2020-10-02] MEDS: Lidocaine Patch REMOVE PATCH PATCH OFF SCH (19:43)
[2020-10-02] MEDS ORDERED: Iohexol 300 (CONTRAST) 10 ML SDV IV ONE (20:14)
[2020-10-03] MEDS: Heparin 5000 UNITS/ML 1 mL VIAL SUBCUT SCH ×3 (07:02→23:03)
[2020-10-03] MEDS: FLUTICASONE INH SCH (08:08)
[2020-10-03] MEDS: VILANTER INH SCH (08:08)
[2020-10-03] MEDS: UMECLIDIN MDI INH SCH (08:08)
[2020-10-03] MEDS: PTO: Fexofenadine 180 mg TAB (NF) PO SCH (08:51)
[2020-10-03] MEDS: LEVOCETIRIZINE 5 MG PO SCH ×2 (08:51→21:22)
[2020-10-03] MEDS: Lidocaine PATCH 5% PATCH TRANSDERM SCH (08:53)
[2020-10-03] MEDS ORDERED: Iohexol 300 (CONTRAST) 10 ML SDV IV ONE (17:27)
[2020-10-03] MEDS: Latanoprost 0.005% 2.5 ml BTL BOTH EYES SCH (21:20)
[2020-10-03] MEDS: Lidocaine Patch REMOVE PATCH PATCH OFF SCH (21:22)
[2020-10-03 21:27] LABS: ABS Basophils 0.1 10^3/ul (0-0.2); ABS Eosinophils 0.4 10^3/ul (0-0.6); ABS Monocytes 0.8 10^3/ul (0-0.8); ABS Neutrophils 7.9 10^3/ul (1.5-7.7); Eosinophil % 3.8 %; Hematocrit 27 % (35-47); Hemoglobin 9.1 g/dL (12.0-16.0); Lymphocyte % 9.5 %; Mean Corpuscular HGB Conc 33 g/dL (31-36); Mean Corpuscular Hemoglobin 29 pg (27-31); Mean Corpuscular Volume 85 fL (80-97); Mean Platelet Volume 6.9 fL (7.4-10.4); Nucleated Red Blood Cells % 0.1; Platelet Count 377 10^3/uL (150-450); Red Blood Count 3.19 10^6 /uL (3.70-4.87); Red Cell Distribution Width 13 % (10-15); White Blood Count 10.1 10^3/uL (3.5-10.8)
[2020-10-03 21:43] LABS: BUN/Creatinine Ratio 10.4 (8-20); Calcium 8.9 mg/dL (8.6-10.3); EGFR African American 105.9 (>60); EGFR Non-African American 87.5 (>60); Magnesium 1.5 mg/dL (1.9-2.7); Potassium 3.4 mmol/L (3.5-5.0)
[2020-10-03] MEDS ORDERED: Magnesium Sulf 4 GM/100 ML IV 4,000 MG/100 ML BAG IVPB ONE (22:17)
[2020-10-03] MEDS ORDERED: Potassium Chlor 20 meq TAB.ER PO ONE (22:17)
[2020-10-04] MEDS: Heparin 5000 UNITS/ML 1 mL VIAL SUBCUT SCH ×3 (06:15→21:28)
[2020-10-04] MEDS ORDERED: NS 0.9% 500 ml BAG 500 ML IV ONE (07:26)
[2020-10-04] MEDS: LEVOCETIRIZINE 5 MG PO SCH ×2 (08:47→21:30)
[2020-10-04] MEDS: PTO: Fexofenadine 180 mg TAB (NF) PO SCH (08:50)
[2020-10-04] MEDS: Lidocaine PATCH 5% PATCH TRANSDERM SCH (08:50)
[2020-10-04] MEDS: FLUTICASONE INH SCH (08:54)
[2020-10-04] MEDS: VILANTER INH SCH (08:54)
[2020-10-04] MEDS: UMECLIDIN MDI INH SCH (08:54)
[2020-10-04] MEDS ORDERED: Gadoteridol (CONTRAST) 279.3 MG/ML 10 ML IV SCH (09:32)
[2020-10-04] MEDS: Latanoprost 0.005% 2.5 ml BTL BOTH EYES SCH (18:16)
[2020-10-04] MEDS: Lidocaine Patch REMOVE PATCH PATCH OFF SCH (21:30)
[2020-10-05] MEDS: Heparin 5000 UNITS/ML 1 mL VIAL SUBCUT SCH (06:00)
[2020-10-05 06:58] LABS: BUN/Creatinine Ratio 10.1 (8-20); Calcium 8.9 mg/dL (8.6-10.3); EGFR African American 102.4 (>60); EGFR Non-African American 84.6 (>60); Magnesium 1.6 mg/dL (1.9-2.7); Potassium 3.7 mmol/L (3.5-5.0)
[2020-10-05] MEDS: Lidocaine PATCH 5% PATCH TRANSDERM SCH (09:45)
[2020-10-05] MEDS: PTO: Fexofenadine 180 mg TAB (NF) PO SCH (09:47)
[2020-10-05] MEDS: UMECLIDIN MDI INH SCH (09:48)
[2020-10-05] MEDS: VILANTER INH SCH (09:48)
[2020-10-05] MEDS: LEVOCETIRIZINE 5 MG PO SCH (09:48)
[2020-10-05] MEDS: FLUTICASONE INH SCH (09:48)
[2020-10-05 11:09] VITALS: BP 150/63
== END 2020-10-05 11:39 | DRG 331 ==
LOC: ED 11:49 → ICU 16:09 → SSU 16:10
PROVIDERS: ADMIT Internal Medicine; ATTEND Student in an Organized Health Care Education/Training Program

== ENCOUNTER 2020-10-05 10:30 | Inpatient (IN) ==
[2020-10-05] MEDS ORDERED: Albuterol HFA INHALER 8 gm MDI INH PRN (13:26)
[2020-10-05] MEDS ORDERED: Albuterol 2.5mg/3 ml (0.083%) NEB.SOLN INH PRN (13:27)
[2020-10-05] MEDS ORDERED: Dextran 70/Hypromellose Tears Eye Drops 15 ml BTL (for Artificials Tears) BOTH EYES PRN (13:37)
[2020-10-05] MEDS: Heparin 5000 UNITS/ML 1 mL VIAL SUBCUT SCH ×2 (15:06→21:27)
[2020-10-05] MEDS: FEXOFENADINE 180 MG PO SCH (21:25)
[2020-10-05] MEDS: Latanoprost 0.005% 2.5 ml BTL BOTH EYES SCH (21:26)
[2020-10-05] MEDS: Mometasone/Formoter 100/5 MDI INH SCH (21:27)
[2020-10-06] MEDS: Heparin 5000 UNITS/ML 1 mL VIAL SUBCUT SCH ×3 (05:46→21:46)
[2020-10-06 06:32] LABS: ABS Basophils 0.1 10^3/ul (0-0.2); ABS Eosinophils 0.4 10^3/ul (0-0.6); ABS Lymphocytes 1.1 10^3/ul (1.0-4.8); ABS Monocytes 0.8 10^3/ul (0-0.8); ABS Neutrophils 6.3 10^3/ul (1.5-7.7); Hematocrit 30 % (35-47); Hemoglobin 9.9 g/dL (12.0-16.0); Lymphocyte % 12.4 %; Mean Corpuscular HGB Conc 33 g/dL (31-36); Mean Corpuscular Hemoglobin 29 pg (27-31); Mean Corpuscular Volume 85 fL (80-97); Mean Platelet Volume 7.2 fL (7.4-10.4); Platelet Count 406 10^3/uL (150-450); Red Blood Count 3.47 10^6 /uL (3.70-4.87); Red Cell Distribution Width 14 % (10-15); White Blood Count 8.6 10^3/uL (3.5-10.8)
[2020-10-06 06:49] LABS: BUN/Creatinine Ratio 12.5 (8-20); Calcium 8.9 mg/dL (8.6-10.3); EGFR African American 111.7 (>60); EGFR Non-African American 92.3 (>60); Globulin 2.9 g/dL (2-4); Magnesium 1.6 mg/dL (1.9-2.7); Potassium 3.6 mmol/L (3.5-5.0); Total Bilirubin 0.2 mg/dL (0.2-1.0); Total Protein 5.9 g/dL (6.4-8.9)
[2020-10-06] MEDS: Multivitamins/Minerals TAB PO SCH (08:12)
[2020-10-06] MEDS: FEXOFENADINE 180 MG PO SCH ×2 (08:14→21:45)
[2020-10-06] MEDS: Mometasone/Formoter 100/5 MDI INH SCH (08:15)
[2020-10-06] MEDS ORDERED: SPIRIVA Respimat (tiotropium) 2.5 mcg/inh Inhaler INH SCH (09:00)
[2020-10-06] MEDS ORDERED: FLUTICASONE/UMECLIDIN/VILANTER 1 PUFF MDI INH SCH (09:00)
[2020-10-06] MEDS: FLUTICASONE/UMECLIDIN/VILANTER 1 PUFF MDI INH SCH (14:27)
[2020-10-06] MEDS ORDERED: Alteplase (CATHFLO) 2 MG VIAL IV ONE (17:54)
[2020-10-06] MEDS: Latanoprost 0.005% 2.5 ml BTL BOTH EYES SCH (21:45)
[2020-10-06] MEDS: PTO: LevoCETirizine 5 mg TAB (NF) PO SCH (21:51)
[2020-10-07] MEDS: Heparin 5000 UNITS/ML 1 mL VIAL SUBCUT SCH ×3 (05:42→21:23)
[2020-10-07] MEDS: Multivitamins/Minerals TAB PO SCH (08:07)
[2020-10-07] MEDS: FEXOFENADINE 180 MG PO SCH (08:17)
[2020-10-07] MEDS: FLUTICASONE/UMECLIDIN/VILANTER 1 PUFF MDI INH SCH (08:18)
[2020-10-07] MEDS: PTO: LevoCETirizine 5 mg TAB (NF) PO SCH ×2 (08:19→21:23)
[2020-10-07] MEDS: Latanoprost 0.005% 2.5 ml BTL BOTH EYES SCH (21:23)
[2020-10-08] MEDS: Heparin 5000 UNITS/ML 1 mL VIAL SUBCUT SCH ×3 (05:47→21:25)
[2020-10-08] MEDS: FEXOFENADINE 180 MG PO SCH (08:04)
[2020-10-08] MEDS: PTO: LevoCETirizine 5 mg TAB (NF) PO SCH ×2 (08:04→21:26)
[2020-10-08] MEDS: Multivitamins/Minerals TAB PO SCH (08:04)
[2020-10-08] MEDS: FLUTICASONE/UMECLIDIN/VILANTER 1 PUFF MDI INH SCH (08:05)
[2020-10-08] MEDS: Latanoprost 0.005% 2.5 ml BTL BOTH EYES SCH (21:26)
[2020-10-09] MEDS: Heparin 5000 UNITS/ML 1 mL VIAL SUBCUT SCH ×3 (05:33→21:21)
[2020-10-09] MEDS: Multivitamins/Minerals TAB PO SCH (10:52)
[2020-10-09] MEDS: PTO: LevoCETirizine 5 mg TAB (NF) PO SCH ×2 (10:55→21:20)
[2020-10-09] MEDS: FLUTICASONE/UMECLIDIN/VILANTER 1 PUFF MDI INH SCH (10:55)
[2020-10-09] MEDS: FEXOFENADINE 180 MG PO SCH (10:56)
[2020-10-09] MEDS: Latanoprost 0.005% 2.5 ml BTL BOTH EYES SCH (21:21)
[2020-10-10] MEDS: Heparin 5000 UNITS/ML 1 mL VIAL SUBCUT SCH (05:36)
[2020-10-10 06:30] VITALS: BP 135/61
[2020-10-10] MEDS: Multivitamins/Minerals TAB PO SCH (07:36)
[2020-10-10] MEDS: FEXOFENADINE 180 MG PO SCH (07:38)
[2020-10-10] MEDS: PTO: LevoCETirizine 5 mg TAB (NF) PO SCH (07:39)
[2020-10-10] MEDS: FLUTICASONE/UMECLIDIN/VILANTER 1 PUFF MDI INH SCH (07:39)
== END 2020-10-10 12:00 | disposition home health service (06) | DRG 74 ==
LOC: PMRU 12:02
PROVIDERS: ADMIT Physical Medicine & Rehabilitation; ATTEND Physical Medicine & Rehabilitation

== ENCOUNTER 2022-11-04 20:43 | Inpatient (IN) ==
[2022-11-04] MEDS ORDERED: Dexamethasone IV 4 MG/ML VIAL 1 ml VIAL IV SLOW PU ONE (22:15)
[2022-11-04] MEDS ORDERED: Albuterol/Ipratropium NEB.SOL (2.5/0.5 MG) 3 ML NEB.SOLN INH ONE (22:16)
[2022-11-04] MEDS ORDERED: MORPHINE 30 MG PO ONE (22:17)
[2022-11-04] MEDS ORDERED: cefTRIAXone 1 gm/50 mL D5W 1 GM/50 ML BAG IV ONE (22:23)
[2022-11-04] MEDS ORDERED: Azithromycin 500 mg/250 ml NS 500 MG/250 ML BAG IVPB ONE (22:23)
[2022-11-04 23:23] LABS: Hematocrit 34 % (35-47); Hemoglobin 10.5 g/dL (12.0-16.0); Mean Corpuscular HGB Conc 32 g/dL (31-36); Mean Corpuscular Hemoglobin 27 pg (27-31); Mean Corpuscular Volume 86 fL (80-97); Platelet Count 242 10^3/uL (150-450); Red Blood Count 3.88 10^6 /uL (3.70-4.87); Red Cell Distribution Width 15 % (10-15); White Blood Count 34.7 10^3/uL (3.5-10.8)
[2022-11-04 23:51] LABS: ABS Basophils 0.4 10^3/ul (0-0.2); ABS Lymphocytes 0.2 10^3/ul (1.0-4.8); ABS Neutrophils 33.1 10^3/ul (1.5-7.7); Eosinophil % 0.1 %; Lymphocyte % 0.7 %
[2022-11-05] MEDS ORDERED: NS 0.9% IV ONE (00:04)
[2022-11-05 00:14] LABS: Albumin 3.2 g/dL (3.2-5.2); Albumin/Globulin Ratio 1.5 (1-3); Calcium 8.9 mg/dL (8.6-10.3); Globulin 2.2 g/dL (2-4); Potassium 4.2 mmol/L (3.5-5.0); Total Bilirubin 0.5 mg/dL (0.2-1.0); Total Protein 5.4 g/dL (6.4-8.9)
[2022-11-05] MEDS ORDERED: Polyethylene Glycol 3350 17 GM PACKET PO PRN (00:21)
[2022-11-05] MEDS ORDERED: Morphine ORAL.SOLN 10 mg 2 mg/ml UDC 5 ml (10 mg) PO ONE ×2 (00:30→13:53)
[2022-11-05] MEDS ORDERED: Iohexol 350 (CONTRAST) 500 ML MDV IV ONE (00:31)
[2022-11-05] MEDS ORDERED: HYDROcodone/ACETAMIN 5/325 mg TAB PO PRN (01:56)
[2022-11-05] MEDS ORDERED: Albuterol 2.5mg/3 ml (0.083%) NEB.SOLN INH PRN (01:56)
[2022-11-05] MEDS: Enoxaparin 40 MG/0.4 ML SYR SUBCUT SCH ×2 (02:29→21:03)
[2022-11-05 06:54] LABS: Hematocrit 32 % (35-47); Hemoglobin 10.2 g/dL (12.0-16.0); Mean Corpuscular HGB Conc 32 g/dL (31-36); Mean Corpuscular Hemoglobin 28 pg (27-31); Mean Corpuscular Volume 87 fL (80-97); Platelet Count 230 10^3/uL (150-450); Red Blood Count 3.66 10^6 /uL (3.70-4.87); Red Cell Distribution Width 15 % (10-15)
[2022-11-05 08:19] LABS: ABS Basophils 0.2 10^3/ul (0-0.2); ABS Lymphocytes 0.3 10^3/ul (1.0-4.8); ABS Monocytes 0.4 10^3/ul (0-0.8); ABS Neutrophils 25.2 10^3/ul (1.5-7.7); Eosinophil % 0.1 %
[2022-11-05] MEDS: Morphine ER 30 mg TAB ** extended release PO SCH ×2 (08:37→21:04)
[2022-11-05] MEDS: Multivitamins/Minerals TAB PO SCH (08:37)
[2022-11-05] MEDS ORDERED: Fexofenadine 180 mg TAB (NF) PO SCH (09:00)
[2022-11-05] MEDS: FLUTICAS/UMECLI/VILANT 100-62.5-25 MDI (NF) INH SCH (11:23)
[2022-11-05 14:09] LABS: C Reactive Protein 140.28 mg/L (<8.01)
[2022-11-05] MEDS ORDERED: Latanoprost 0.005% 2.5 ml BTL BOTH EYES SCH (21:00)
[2022-11-05] MEDS ORDERED: cefTRIAXone 1 gm/50 mL D5W 1 GM/50 ML BAG IV SCH (22:00)
[2022-11-05] MEDS ORDERED: Azithromycin 500 mg/250 ml NS 500 MG/250 ML BAG IVPB SCH (22:00)
[2022-11-06 05:08] LABS: Hematocrit 30 % (35-47); Hemoglobin 9.4 g/dL (12.0-16.0); Mean Corpuscular HGB Conc 31 g/dL (31-36); Mean Corpuscular Hemoglobin 27 pg (27-31); Mean Corpuscular Volume 86 fL (80-97); Mean Platelet Volume 7.7 fL (7.4-10.4); Platelet Count 194 10^3/uL (150-450); Red Blood Count 3.48 10^6 /uL (3.70-4.87); Red Cell Distribution Width 15 % (10-15); White Blood Count 15.1 10^3/uL (3.5-10.8)
[2022-11-06 06:31] LABS: Calcium 8.3 mg/dL (8.6-10.3); Magnesium 2.1 mg/dL (1.9-2.7); Potassium 4.3 mmol/L (3.5-5.0); eGFR CKD-EPI 101.3 (>60)
[2022-11-06] MEDS: FLUTICAS/UMECLI/VILANT 100-62.5-25 MDI (NF) INH SCH (07:35)
[2022-11-06] MEDS: Morphine ER 30 mg TAB ** extended release PO SCH (08:38)
[2022-11-06] MEDS: Multivitamins/Minerals TAB PO SCH (08:39)
[2022-11-06] MEDS ORDERED: HYDROcodone/ACETAMIN 5/325 mg TAB PO PRN (08:43)
[2022-11-06] MEDS ORDERED: Influenza vaccine *QUAD* *2022-23* 0.5 ML SYRINGE IM ONE (09:00)
[2022-11-06 16:49] VITALS: BP 143/68
== END 2022-11-06 14:40 | disposition home or self-care (01) | DRG 871 ==
LOC: ED 20:43 → SUATTDRO 11-05 00:08 → EDHOLD 11-05 00:08 → MED 11-05 08:26
PROVIDERS: ADMIT Internal Medicine; ATTEND Hospitalist